=== PATIENT | male | born 1950 | race Caucasian/White ===

== ENCOUNTER 2017-07-01 11:00 | Inpatient (IN) | payer MEDICARE, MEDICAID ==
--- NOTE | 2017-07-01 11:34 | ED Physician Chart ---
ED Chief Complaint/HPI - Patient Information Date Seen:: 07/01/17 Time Seen:: 11:15 Chief Complaint:: AMS History of Present Illness:: onset x 3 days of AMS and ALOC with abnormal lab tests today; no report of trauma, H/As, S/T, neck pain, C/P, SOB, Abd. Pain Allergies:: Allergies Allergy/AdvReac Type Severity Reaction Status Date / Time MDX No Known Allergies - Nka Allergy Verified 04/05/14 13:14 [No Known Allergies - Nka] Historian:: Patient, EMS Review:: Nurse's Note Reviewed, Old Chart Reviewed, EMS run form Reviewed ED Review of Systems - Review of Systems General/Constitutional: No fever, No chills, No weight loss, No weakness, No diaphoresis, No edema, No loss of appetite Skin: No skin lesions, No rash, No bruising Head: No headache, No light-headedness Eyes: No loss of vision, No pain, No diplopia ENT: No earache, No nasal drainage, No sore throat, No tinnitus Neck: No neck pain, No swelling, No thyromegaly, No stiffness, No mass noted Cardio Vascular: No chest pain, No palpitations, No PND, No orthopnea, No edema Pulmonary: No SOB, No cough, No sputum, No wheezing GI: No nausea, No vomiting, No diarrhea, No pain, No melena, No hematochezia, No constipation, No hematemesis G/U: No dysuria, No frequency, No hematuria, No nacturia Musculoskeletal: No bone or joint pain, No back pain, No muscle pain Endocrine: No polyuria, No polydipsia Psychiatric: No prior psych history, No depression, No anxiety, No suicidal ideation, No homicidal ideation, No auditory hallucination, No visual hallucination Hematopoietic: No bruising, No lymphadenopathy Allergic/Immuno: No urticaria, No angioedema Neurological: No syncope, No focal symptoms, No weakness, No paresthesia, No headache, No seizure, No dizziness, Confusion, No vertigo ED Past Medical History - Past Medical History Obtainable: Yes Past Medical History: HTN, CAD, Dyslipidemia, Dementia Family History: HTN Social History: Non Smoker, No Alcohol, No Drug Use, Single, Care Facility Surgical History: Pacemaker Psychiatricy History: Dementia Medication: Reviewed Family Medical History - Family Member Mother History Unknown: Yes Ethnicity: Non- Living Status: Hx Family Cancer: No Hx Family Coronary Artery Disease: No Hx Family Congestive Heart Failure: No Hx Family Hypertension: No Hx Family Stroke: No Hx Family Diabetes: No Hx Family Seizures: No Hx Family Dementia: No Hx Family AIDS: No Hx Family HIV: No Hx Family COPD: No Hx Family Hepatitis: No Hx Family Psychiatric Problems: No Hx Family Tuberculosis: No ED Physical Exam - Physical Examination General/Constitutional: Awake, Well-developed, well-nourished, Alert, No distress, GCS 15, Non-toxic appearing, Ambulatory Head: Atraumatic Eyes: Lids, conjuctiva normal, PERRL, EOMI Skin: Nl inspection, No rash, No skin lesions, No ecchymosis, No lymphadenopathy Other Skin comments:: Poor turgor with dry MM ENMT: External ears, nose nl, TM canals nl, Nasal exam nl, Lips, teeth, gums nl , Oropharynx nl, Tonsils nl Neck: Nontender, Full ROM w/o pain, No JVD, No nuchal rigidity, No bruit, No mass, No stridor Respiratory: Nl effort/Exclusion, Clear to Auscultation, No Wheeze/Rhonchi/Rales Cardio Vascular: RRR, No murmur, gallop, rubs, NL S1 S2, Carotid/Femoral/Distal pulses equal bilaterally GI: No tenderness/rebounding/guarding, No organomegaly, No hernia, Normal BS's, Nondistended, No mass/bruits, No McBurney tenderness : No CVA tenderness Extremities: No tenderness or effusion, Full ROM, normal strength in all extremities, No edema, Normal digits & nails Neuro/Psych: Alert/oriented, DTR's symmetric, Normal sensory exam, Normal motor strength, Judgement/insight normal, Mood normal, Normal gait, No focal deficits Misc: Normal back, No paraspinal tenderness ED Labs/Radiology/EKG Results - Lab Results Comments:: K+: 3.3; BUN: 52; LA: 4.36 - EKG Interpretations EKG Time:: 11:42 Rate & Rhythm: 82; Pacemaker Rhythm/NSR Comments:: LVH; RBBB; non-specific st-t changes ED Septic Shock - . Is Septic Shock (SBP<90, OR Lactate>4 mmol\L) present?: No ED Reassessment (Disposition) - Reassessment Reassessment Condition:: Improved - Diagnosis Diagnosis:: Anemia; Myocardial Ischemia; Dehydration; Pre-Renal Azotemia; Sepsis; UTI - Aftercare/Follow up Instructions Aftercare/Follow-Up Instructions:: Counseled pt regarding lab results/diagnosis & need follow up, Counseled pt & family regarding lab results/diagnosis & need follow up - Patient Disposition Discharge/Transfer:: Acute Care w/in this hosp Accepting Physician:: Dr. Gregorio Time Called:: 1300 Time Responded:: 13:00 Admitted to:: Telemetry Spoke to:: Dr. Gregorio Admitting Medical Physician:: Dr. Gregorio Condition at Disposition:: Stable, Improved
--- NOTE | 2017-07-01 11:50 | Diagnostic Imaging Report ---
Portable chest x-ray HISTORY: Pain The overall heart size is difficult to assess with portable technique and a poor inspiration. Cardiac electrode lead wire projects over the right ventricle. No focal pulmonary processes. IMPRESSION: 1. No focal pulmonary processes
[2017-07-01 11:56] LABS: % BASOPHILS 1.1 % (0.0-2.0); % LYMPHOCYTES 33.6 % (20.0-50.0); % MONOCYTES 9.5 % (2.0-10.0); % NEUTROPHILS 54.8 % (40.0-80.0); BASOPHILE ABSOLUTE 0.1 Th/cumm (0-0.2); EOSINOPHILE ABSOLUTE 0.1 Th/cmm (0.1-0.4); HEMATOCRIT 33.3 % (41.0-60); HEMOGLOBIN 11.4 gm/dL (12-16); LYMPHOCYTE ABSOLUTE 3.5 Th/cmm (1.5-3.0); MEAN CELL VOLUME 94.8 fl (80-99); MEAN CORPUSCULAR HEMOGLOBIN 32.5 pg (27.0-31.0); MEAN CORPUSCULAR HGB CONC 34.2 pg (28.0-36.0); MEAN PLATELET VOLUME 8.7 fl; NEUTROPHILE ABSOLUTE 5.8 Th/cmm (1.8-8.0); PLATELET COUNT 226 Th/cmm (150-400); RED BLOOD COUNT 3.51 Mil/cmm (3.80-5.80); RED CELL DISTRIBUTION WIDTH 12.8 % (11.5-20.0); WHITE BLOOD COUNT 10.5 Th/cmm (4.8-10.8)
[2017-07-01 12:14] LABS: ALB/GLOB RATIO 0.4 (1.0-1.8); ALBUMIN 2.7 gm/dL (4.2-5.5); ANION GAP 15.3 (7.0-16.0); BILIRUBIN,TOTAL 0.5 mg/dL (0.3-1.0); CALCIUM SERUM 10.9 mg/dL (8.6-10.3); CREATININE - SERUM 1.9 mg/dL (0.7-1.3); GFR AFRICAN-AMERICAN 45.6 ml/min (>90); GFR NON AFRICAN-AMERICAN 37.7 ml/min; POTASSIUM SERUM 3.3 mEq/L (3.5-5.1); TOTAL PROTEIN,SERUM 8.8 gm/dL (6.0-8.3)
[2017-07-01] MEDS ORDERED: Sodium Chloride 0.9% 1,000 ML IV ONE (12:19)
[2017-07-01 12:21] LABS: INR 1.08 (0.5-1.4); PROTHROMBIN TIME (TEST) 11.2 SECONDS (9.5-11.5)
[2017-07-01 13:06] LABS: URINE MICROSCOPIC INDICATED? YES; URINE SOURCE MIDSTREAM
[2017-07-01 13:15] LABS: URINE BILIRUBIN NEGATIVE (NEGATIVE); URINE BLOOD TRACE (NEGATIVE); URINE GLUCOSE (UA) NEGATIVE (NEGATIVE); URINE KETONE NEGATIVE (NEGATIVE); URINE LEUKOCYTE ESTERASE MODERATE (NEGATIVE); URINE NITRATE NEGATIVE (NEGATIVE); URINE PH 7.5 (4.6 - 8.0); URINE PROTEIN TRACE mg/dL (NEGATIVE); URINE UROBILINOGEN 0.2 E.U./dL (0.2 - 1.0)
[2017-07-01 13:26] LABS: URINE CLARITY HAZY (CLEAR); URINE COLOR YELLOW
[2017-07-01 13:28] LABS: URINE BACTERIA FEW /hpf (NONE SEEN); URINE EPITHELIAL CELLS FEW /lpf (FEW); URINE WBC 50-100 /hpf (0-5)
[2017-07-01] MEDS ORDERED: Potassium Chloride 20 mEq ER Tab PO ONE (13:29)
[2017-07-01] MEDS ORDERED: cefTRIAXone 1 GM in Sodium Chloride 0.9% 50 ML IV ONE (13:30)
[2017-07-01] MEDS ORDERED: Sodium Chloride 0.9% 1,000 ML IV SCH ×2 (16:15→16:47)
[2017-07-01] MEDS ORDERED: cefTRIAXone 1 GM in Sodium Chloride 0.9% 50 ML IV SCH (16:47)
[2017-07-01] MEDS: INSULIN ASPART, RECOMBINANT 100 UNITS/ML SUBQ SCH ×2 (17:40→22:19)
[2017-07-01] MEDS: Sodium Chloride 0.9% 1,000 ML IV SCH (17:40)
[2017-07-01 20:09] VITALS: BP 99/53
[2017-07-01] MEDS ORDERED: INSULIN ASPART SLIDING SCALE 100 UNITS/ML UNIT SUBQ SCH (21:00)
[2017-07-01] MEDS ORDERED: Piperacillin Sodium/Tazobact 3.375 gm Vial IV ONE (21:57)
[2017-07-01 22:17] LABS: A1C % 7.4 % (4.0-6.0)
--- NOTE | 2017-07-01 22:58 | History & Physical ---
ADMIT DATE: 07/01/2017 CHIEF COMPLAINT: Lethargy and abnormal labs. HISTORY OF PRESENT ILLNESS: A 66-year-old male with underlying history of cardiomyopathy, systolic heart failure, diabetes mellitus, morbid obesity, who lives in a nursing facility, was transferred for lethargy, abnormal labs. The patient was subsequently admitted for dehydration, acute renal failure and UTI. At time of evaluation, the patient did not communicate well. The patient is well known to me from [facility]. PAST MEDICAL HISTORY: Systolic heart failure, Parkinson's disease, CKD, nonischemic cardiomyopathy, mental disorder. PAST SURGICAL HISTORY: No significant past medical history. SOCIAL HISTORY: [facility] resident. No smoking or alcohol. ALLERGIES: No known drug allergies. REVIEW OF SYSTEMS: Unobtainable, patient's underlying severe confusion. PHYSICAL EXAMINATION: VITAL SIGNS: Temperature 97.4, pulse 80, respirations 20, blood pressure 99/53. HEART: S1, S2 normal. LUNGS: Bilateral clear to auscultation. ABDOMEN: Soft, nontender. NEURO EXAM: The patient is awake, but confused, did not communicate well, unable to communicate well. LABORATORY DATA: Available laboratory data, WBC 10.5, hemoglobin 11.4, hematocrit 33.3, platelet is 226. Sodium 135, potassium 3.3, BUN 53, creatinine 1.9, AST 61, ALT is 28. Troponin 0.08, albumin is 2.7. Lactic acid is 4.89. Chest x-ray, no acute pulmonary process. ASSESSMENT: 1. Sepsis. 2. Complicated urinary tract infection. 3. Acute on chronic kidney disease. 4. Dehydration. 5. Lethargic. 6. Insulin-dependent diabetes mellitus. 7. Nonischemic cardiomyopathy. 8. Mental disorder. PLAN: The patient admitted to tele unit, started on IV fluid hydrations. ID and Nephrology was consulted. The patient's Lasix and Zaroxolyn was discontinued. Blood sugar, we will monitor Accu-Cheks. Insulin coverage will be given. Blood culture, which was obtained. HOME MEDICATIONS: As reconciled. Symptomatic treatment will be given for pain, nausea, vomiting and fever. The patient's condition and plan of care discussed with the nursing staff. JOB# [id number] [facility]
[2017-07-02] MEDS ORDERED: Piperacillin Sodium/Tazobact 3.375 gm Vial IV ONE (05:57)
[2017-07-02 06:32] LABS: % BASOPHILS 0.7 % (0.0-2.0); % EOSINOPHILS 2.1 % (0.0-5.0); % LYMPHOCYTES 30.7 % (20.0-50.0); % MONOCYTES 12.2 % (2.0-10.0); % NEUTROPHILS 54.3 % (40.0-80.0); BASOPHILE ABSOLUTE 0.1 Th/cumm (0-0.2); EOSINOPHILE ABSOLUTE 0.2 Th/cmm (0.1-0.4); HEMATOCRIT 31.1 % (41.0-60); HEMOGLOBIN 10.6 gm/dL (12-16); LYMPHOCYTE ABSOLUTE 3.2 Th/cmm (1.5-3.0); MEAN CELL VOLUME 94.1 fl (80-99); MEAN CORPUSCULAR HEMOGLOBIN 32.1 pg (27.0-31.0); MEAN CORPUSCULAR HGB CONC 34.2 pg (28.0-36.0); MONOCYTE ABSOLUTE 1.3 Th/cmm (0.3-1.0); NEUTROPHILE ABSOLUTE 5.5 Th/cmm (1.8-8.0); PLATELET COUNT 186 Th/cmm (150-400); RED CELL DISTRIBUTION WIDTH 12.9 % (11.5-20.0); WHITE BLOOD COUNT 10.3 Th/cmm (4.8-10.8)
[2017-07-02] MEDS: Sodium Chloride 0.9% 1,000 ML IV SCH ×2 (06:33→14:11)
[2017-07-02] MEDS: INSULIN ASPART, RECOMBINANT 100 UNITS/ML SUBQ SCH ×4 (06:33→20:51)
[2017-07-02 07:02] LABS: ALB/GLOB RATIO 0.4 (1.0-1.8); ALBUMIN 2.3 gm/dL (4.2-5.5); ANION GAP 9.2 (7.0-16.0); BILIRUBIN,TOTAL 0.6 mg/dL (0.3-1.0); CALCIUM SERUM 9.5 mg/dL (8.6-10.3); CARBON DIOXIDE 23.1 mEq/L (21.0-31.0); CREATININE - SERUM 1.8 mg/dL (0.7-1.3); GFR AFRICAN-AMERICAN 48.5 ml/min (>90); GFR NON AFRICAN-AMERICAN 40.1 ml/min; MAGNESIUM 1.8 mg/dL (1.9-2.7); PHOSPHOROUS 3.1 mg/dL (2.5-5.0); POTASSIUM SERUM 3.3 mEq/L (3.5-5.1); TOTAL PROTEIN,SERUM 7.7 gm/dL (6.0-8.3)
[2017-07-02] MEDS ORDERED: Potassium Chloride 40 MEQ, Lidocaine 1% 20mL Vial 25 MG in Sodium Chloride 0.9% 250 ML IV ONE (11:54)
[2017-07-02] MEDS ORDERED: Mag Sulfate 2gm/50mL Premix 2 GM/50 ML BAG IV ONE (11:54)
[2017-07-02] MEDS ORDERED: KCL 20mEq/100mL Premix 40 MEQ/200 ML PIGGYBACK IV SCH (12:15)
[2017-07-02] MEDS ORDERED: cefTRIAXone 1 GM in Sodium Chloride 0.9% 50 ML IV SCH (14:00)
--- NOTE | 2017-07-02 15:27 | Consultation ---
Consult Note - Consult Note Service Date: 07/02/17 Referring Physician: Ian Gregorio Consult Note: PHYSICIAN Consultation Note: Date of Admission: 07/01/17 Purpose of Consultation: Chief Complaint: Patient ALFA ECHAVARRIA was admitted to [facility] with ACUTE RENAL FAILURE. History of Present Illness:The patient is 66 male with a past medical history of systolic heart failure, cardiopathy, diabetes mellitus type 2, obesity, Parkinson's disease, psych disorder, agitation, brought from nursing facility for increased lethargy and leukocytosis. The patient WBC count went up to 12, 300 and BUN went up to 61 and creatinine 2. On the further evaluation, labwork revealed UTI. ID consult was called and minimal, Zosyn was started. Past Medical History: systolic heart failure, cardiopathy, diabetes mellitus type 2, obesity, Parkinson's disease, psych disorder, agitation Allergies Allergy/AdvReac Type Severity Reaction Status Date / Time No Known Allergies Allergy Verified 07/01/17 11:37 Vital Signs Temp 97.6 F 07/02/17 04:00 Pulse 58 07/02/17 07:41 Resp 14 07/02/17 07:41 BP 122/68 07/02/17 04:00 Pulse Ox 99 07/02/17 07:41 Intake & Output 07/01/17 07/02/17 07/02/17 18:59 06:59 18:59 Intake Total 1900 100 Balance 1900 100 Weight (lbs) 86.001 kg 85.729 kg Intake: Intake, IV Amount 1100 100 Piperacillin Sodium/ 100 100 Tazobact 3.375 gm In Sodium Chloride 0.9% 100 ml @ 100 mls/hr IV Q6HR [facility] Rx#:[id number] Sodium Chloride 0.9% 1, 1000 000 ml @ 100 mls/hr IV . Q10H [facility] Rx#:[id number] Oral 800 Other: # Voids 2 # Bowel Movements 0 Weight Source Bedscale Estimated Laboratory Results - last 24 hr 07/01/17 07/02/17 07/02/17 17:23 05:58 05:58 WBC 10.3 RBC 3.30 L Hgb 10.6 L Hct 31.1 L MCV 94.1 MCH 32.1 H MCHC Differential 34.2 RDW 12.9 Plt Count 186 MPV 9.0 Neutrophils % 54.3 Lymphocytes % 30.7 Monocytes % 12.2 H Eosinophils % 2.1 Basophils % 0.7 Sodium 137 Potassium 3.3 L Chloride 108 H Carbon Dioxide 23.1 Anion Gap 9.2 BUN 43 H Creatinine 1.8 H Est GFR ( Amer) 48.5 Est GFR (Non-Af Amer) 40.1 BUN/Creatinine Ratio 23.9 Glucose 100 D POC Glucose 76 Calcium 9.5 Phosphorus 3.1 Magnesium 1.8 L Total Bilirubin 0.6 AST 53 H ALT 23 Alkaline Phosphatase 97 Total Protein 7.7 Albumin 2.3 L Globulin 5.4 Albumin/Globulin Ratio 0.4 L TSH 07/02/17 05:58 WBC RBC Hgb Hct MCV MCH MCHC Differential RDW Plt Count MPV Neutrophils % Lymphocytes % Monocytes % Eosinophils % Basophils % Sodium Potassium Chloride Carbon Dioxide Anion Gap BUN Creatinine Est GFR ( Amer) Est GFR (Non-Af Amer) BUN/Creatinine Ratio Glucose POC Glucose Calcium Phosphorus Magnesium Total Bilirubin AST ALT Alkaline Phosphatase Total Protein Albumin Globulin Albumin/Globulin Ratio TSH 0.87 Home Medication Medication Instructions Recorded Type Sitagliptin Phosphate [Januvia] 50 mg PO DAILY 04/05/14 History Insulin Aspart, Recombinant See Protocol SUBQ QID 12/04/14 History [NovoLOG] Nitroglycerin [Nitroglycerin*] 0.4 mg SL Q5MIN PRN 12/04/14 History Aspirin EC [Ecotrin] 81 mg PO DAILY 07/01/17 History Bisacodyl [Biscolax] 10 mg RC DAILY PRN 07/01/17 History Carbidopa/Levodopa [Sinemet 25-100 1 each PO BID 07/01/17 History mg Tablet] Dextrose/Dextrin/Maltose 1 unit PO PRN PRN 07/01/17 History [Insta-Glucose Gel] Furosemide [Lasix] 40 mg PO Q48H 07/01/17 History Glucagon,Human Recombinant 1 mg IJ PRN PRN 07/01/17 History [Glucagon Emergency Kit] Insulin Aspart, Recombinant 10 unit SUBQ TID 07/01/17 History [NovoLOG FLEXPEN] Insulin Detemir [Levemir] 100 unit SQ BID 07/01/17 History Lactulose 20 gm PO HS 07/01/17 History Lisinopril [Prinivil] 2.5 mg PO DAILY 07/01/17 History Neomycin Vazquez/Bacitrac Zn/Poly 28 gm TP DAILY 07/01/17 History [Antibiotic Ointment] Potassium Chloride 1 tab PO DAILY 07/01/17 History Zaroxolyn 5 mg PO BID 07/01/17 History Current Medications Generic Name Dose Route Start Last Admin Trade Name Freq PRN Reason Stop Dose Admin Acetaminophen 650 mg 07/01/17 22:20 Tylenol PO 08/30/17 22:19 Q4HR PRN Pain Or Fever above 101 Aspirin 81 mg 07/02/17 09:00 07/02/17 09:34 Ecotrin PO 08/31/17 08:59 81 mg DAILY [facility] Administration Carbidopa/Levodopa 1 tab 07/02/17 17:00 Sinemet 25mg-100 Mg PO 08/31/17 16:59 BID MIC[facility]EL Piperacillin Sod/Tazobactam 100 mls @ 100 mls/hr 07/01/17 21:00 07/02/17 14: 10 Sod 3.375 gm/ Sodium Chloride IV 08/30/17 20:59 100 mls/hr Q6HR [facility] Administration Potassium Chloride 40 meq in 200 mls @ 50 mls/hr 07/02/17 12:15 Potassium Chloride IV 07/03/17 16:14 1215 [facility] Sodium Chloride 1,000 mls @ 70 mls/hr 07/02/17 13:49 07/02/17 14:11 Nacl 0.9% IV 08/31/17 13:48 70 mls/hr .[id number] [facility] Administration Insulin Aspart 1 units 07/01/17 16:47 07/02/17 12:13 Novolog SUBQ 08/30/17 16:46 Not Given ACHS [facility] Protocol Ondansetron HCl 4 mg 07/01/17 22:20 Zofran IV 08/30/17 22:19 Q6H PRN Nausea / Vomiting Review of Systems: A 12 point ROS was reviewed with the pertinent positive and negatives noted in the HPI. Because of the mental status unable to give any history. Social History Lives at nursing facility. Smoking Status Smoker, status unknown Drug Use No Alcohol Use No Family Medical History Not available Physical Exam: General: Comfortable not in acute distress. HEENT: Head: Normocephalic. Oral cavity: Moist, pink tongue. Eyes: No pallor and no icterus. Pupils PERRLA. Cardio: S1 and S2 within normal limits regular rhythm. Respiratory: Vesicular breath sound no crackles or wheezing. Abdominal: Soft, nontender nondistended bowel sounds present. Genital/Urinary: Deferred. Extremities: No cyanosis, no clubbing, no edema. Neurological: Agitated and very confused. Sorting and yelling. Assessment: 1. UTI. 2. Agitation. 3. Diabetes mellitus type 2. 4. Acute kidney injury versus CK D. 5. Hypertension. Plan: Continue same treatment. Change Zosyn to Rocephin. Renal ultrasound. Thank you, Dr. Gregorio for involving me taking care of this patient Signed, Eric Handy M.D. 07/02/[id number]
--- NOTE | 2017-07-02 16:12 | Consultation ---
DATE OF CONSULTATION: 07/02/2017 RENAL CONSULT LOCATION: [facility], room 18, bed 2. ATTENDING PHYSICIAN: Dr. Gregorio. I thank you very much, Dr. Gregorio for allowing me to participate in the management of this patient of yours. INDICATIONS: This is a 66-year-old male patient. The patient is confused. The patient has a history of parkinsonism. History has been taken from reviewing the old chart. HISTORY OF PRESENT ILLNESS: A 66-year-old male patient who is resident of a intermediate. The patient is a known case of hypertension, CHF, diabetes mellitus, cardiomyopathy. The patient also has a history of possible chronic kidney disease 2. The patient was brought in with change in mental status. Upon evaluation, the patient was found to have acute renal failure, electrolyte imbalance, volume depletion, UTI. The patient has been seen by Infectious Disease healthcare management consultant. Renal consultation has been requested. According to the nursing staff, there is no history of vomiting or diarrhea. The patient is eating well. There is no history of seizures, high fever. No history of loss of consciousness. No history of anuria, dysuria or hematuria. The patient's urine output is more than 60 mL per hour. PAST MEDICAL AND SURGICAL HISTORY: As stated above, history of nonischemic cardiomyopathy, obesity, parkinsonism, CKD, hypertension, diabetes mellitus and degenerative joint disease. SOCIAL HISTORY: No history of alcoholism or smoking. ALLERGIES: Not allergic to medications. The patient is a resident of intermediate. CURRENT MEDICATIONS: Include Tylenol p.r.n., aspirin 81 mg a day, Rocephin 1 g every 24-hour, insulin coverage, Zofran IV p.r.n. and IV Zosyn. PHYSICAL EXAMINATION: GENERAL: A 66-year-old male patient confused. VITAL SIGNS: Temperature 97.6, pulse 63, blood pressure 122/68. Yesterday's intake 2900, output not documented. HEENT: Normocephalic, atraumatic. Eyes, sclerae is nonicteric. Conjunctivae are pale. Pupils reactive. NECK: Thyroid is nontender, not enlarged. Jugular venous pressure not distended. No lymphadenopathy. EAR, NOSE, THROAT: No bleeding or discharge. LUNGS: Good air entry. No rales or rhonchi. HEART: Regular. [place] in a sixth intercostal space outside midclavicular line. ABDOMEN: Soft, not distended. Bowel sounds present. EXTREMITIES: No edema of the leg. No calf tenderness. Warm. LABORATORY DATA: Hemoglobin 10.6, WBC 10.3. Sodium 135, potassium 3.3, BUN 52, creatinine 1.49, EGFR 45, hemoglobin A1c 7.4, magnesium 1.8, phosphorus 3.1, calcium 9.1. Initial calcium was 10.9, which has improved to 9.5, albumin 2.7, decreased to 2.3. Urinalysis: Leukocyte positive, WBC positive, nitrite negative. ASSESSMENT: 1. Hypercalcemia, improving. 2. Hypokalemia. 3. Hypomagnesemia. 4. Acute kidney injury. 5. Chronic kidney disease 3, baseline probably. 6. Hypertension. 7. History of cardiomyopathy. 8. Obesity. 9. Anemia, worsening. 10. Lactic acidosis, etiology not clear. 11. Rule out volume depletion. 12. Rule out urinary tract infection. 13. History of parkinsonism. PLAN: We will give the patient potassium KCl rider. We will also give magnesium rider. Check PTH 24-hour urine for proteinuria and creatinine clearance. Increase IV fluids. Also, check stool occult blood and iron studies. Also, obtain TSH. The patient also has elevated LFTs, but they are improving, so check kidney ultrasound and liver ultrasound if LFTs does not come back to normal level. Further management depends upon the outcome of this management. Discussed with nursing staff. JOB# [id number]
--- NOTE | 2017-07-02 21:25 | General Progress Note ---
Subjective - Review of Systems Service Date: 07/02/17 Subjective: Patient seen and examined awake but confused nurse reported that patient refusing to eat Also nurse was unable to insert erickson cath due to ? urethral stricture Objective - Results Result Diagrams: 07/02/17 05:58 07/02/17 05:58 Recent Labs: Laboratory Last Values WBC 10.3 Th/cmm (4.8-10.8) 07/02/17 05:58 RBC 3.30 Mil/cmm (3.80-5.80) L 07/02/17 05:58 Hgb 10.6 gm/dL (12-16) L 07/02/17 05:58 Hct 31.1 % (41.0-60) L 07/02/17 05:58 MCV 94.1 fl (80-99) 07/02/17 05:58 MCH 32.1 pg (27.0-31.0) H 07/02/17 05:58 MCHC Differential 34.2 pg (28.0-36.0) 07/02/17 05:58 RDW 12.9 % (11.5-20.0) 07/02/17 05:58 Plt Count 186 Th/cmm (150-400) 07/02/17 05:58 MPV 9.0 fl 07/02/17 05:58 Neutrophils % 54.3 % (40.0-80.0) 07/02/17 05:58 Lymphocytes % 30.7 % (20.0-50.0) 07/02/17 05:58 Monocytes % 12.2 % (2.0-10.0) H 07/02/17 05:58 Eosinophils % 2.1 % (0.0-5.0) 07/02/17 05:58 Basophils % 0.7 % (0.0-2.0) 07/02/17 05:58 PT 11.2 SECONDS (9.5-11.5) 07/01/17 11:45 INR 1.08 (0.5-1.4) 07/01/17 11:45 PTT (Actin FS) 27.8 SECONDS (26.0-38.0) 07/01/17 11:45 Sodium 137 mEq/L (136-145) 07/02/17 05:58 Potassium 3.3 mEq/L (3.5-5.1) L 07/02/17 05:58 Chloride 108 mEq/L (98-107) H 07/02/17 05:58 Carbon Dioxide 23.1 mEq/L (21.0-31.0) 07/02/17 05:58 Anion Gap 9.2 (7.0-16.0) 07/02/17 05:58 BUN 43 mg/dL (7-25) H 07/02/17 05:58 Creatinine 1.8 mg/dL (0.7-1.3) H 07/02/17 05:58 Est GFR ( Amer) 48.5 ml/min (>90) 07/02/17 05:58 Est GFR (Non-Af Amer) 40.1 ml/min 07/02/17 05:58 BUN/Creatinine Ratio 23.9 07/02/17 05:58 Glucose 100 mg/dL (70-105) D 07/02/17 05:58 POC Glucose 181 MG/DL (70 - 105) H 07/02/17 20:29 Hemoglobin A1c % 7.4 % (4.0-6.0) H 07/01/17 11:45 Whole Bld Lactic Acid 4.89 mmol/L (0.60-1.99) H* 07/01/17 14:30 Calcium 9.5 mg/dL (8.6-10.3) 07/02/17 05:58 Phosphorus 3.1 mg/dL (2.5-5.0) 07/02/17 05:58 Magnesium 1.8 mg/dL (1.9-2.7) L 07/02/17 05:58 Total Bilirubin 0.6 mg/dL (0.3-1.0) 07/02/17 05:58 AST 53 U/L (13-39) H 07/02/17 05:58 ALT 23 U/L (7-52) 07/02/17 05:58 Alkaline Phosphatase 97 U/L (34-104) 07/02/17 05:58 Creatine Kinase 95 U/L (30-223) 07/01/17 11:45 Troponin I 0.08 ng/mL (0.01-0.05) H* D 07/01/17 11:45 Total Protein 7.7 gm/dL (6.0-8.3) 07/02/17 05:58 Albumin 2.3 gm/dL (4.2-5.5) L 07/02/17 05:58 Globulin 5.4 gm/dL 07/02/17 05:58 Albumin/Globulin Ratio 0.4 (1.0-1.8) L 07/02/17 05:58 TSH 0.87 uIU/ml (0.34-5.60) 07/02/17 05:58 Urine Source MIDSTREAM 07/01/17 12:00 Urine Color YELLOW 07/01/17 12:00 Urine Clarity HAZY (CLEAR) 07/01/17 12:00 Urine pH 7.5 (4.6 - 8.0) 07/01/17 12:00 Ur Specific [place] 1.010 (1.005-1.030) 07/01/17 12:00 Urine Protein TRACE mg/dL (NEGATIVE) 07/01/17 12:00 Urine Glucose (UA) NEGATIVE mg/dL (NEGATIVE) 07/01/17 12:00 Urine Ketones NEGATIVE mg/dL (NEGATIVE) 07/01/17 12:00 Urine Blood TRACE (NEGATIVE) 07/01/17 12:00 Urine Nitrate NEGATIVE (NEGATIVE) 07/01/17 12:00 Urine Bilirubin NEGATIVE (NEGATIVE) 07/01/17 12:00 Urine Urobilinogen 0.2 E.U./dL (0.2 - 1.0) 07/01/17 12:00 Ur Leukocyte Esterase MODERATE (NEGATIVE) H 07/01/17 12:00 Urine RBC 2-5 /hpf (0-5) H 07/01/17 12:00 Urine WBC 50-100 /hpf (0-5) H 07/01/17 12:00 Ur Epithelial Cells FEW /lpf (FEW) 07/01/17 12:00 Urine Bacteria FEW /hpf (NONE SEEN) 07/01/17 12:00 - Physical Exam Vitals and I&O: Vital Signs Temp 61 F 07/02/17 15:39 Pulse 63 07/02/17 19:20 Resp 18 07/02/17 20:00 BP 87/37 07/02/17 15:39 Pulse Ox 98 07/02/17 19:20 Intake & Output 07/02/17 07/02/17 07/03/17 06:59 18:59 06:59 Intake Total 1900 100 200 Output Total 2 Balance 1900 100 198 Weight (lbs) 86.001 kg 85.729 kg 85.729 kg Intake: Intake, IV Amount 1100 100 200 KCL 20mEq/100mL Premix 40 200 meq In 200 ml @ 50 mls/ hr IV 1215 [facility] Rx#: [id number] Piperacillin Sodium/ 100 100 Tazobact 3.375 gm In Sodium Chloride 0.9% 100 ml @ 100 mls/hr IV Q6HR [facility] Rx#:[id number] Sodium Chloride 0.9% 1, 1000 000 ml @ 100 mls/hr IV . Q10H [facility] Rx#:[id number] Oral 800 Output: Stool 2 Other: # Voids 2 # Bowel Movements 0 Weight Source Bedscale Estimated Estimated Active Medications: Current Medications Acetaminophen (Tylenol) 650 mg PO Q4HR PRN PRN Reason: Pain Or Fever above 101 Stop: 08/30/17 22:19 Aspirin (Ecotrin) 81 mg PO DAILY [facility] Stop: 08/31/17 08:59 Last Admin: 07/02/17 09:34 Dose: 81 mg Carbidopa/Levodopa (Sinemet 25mg-100 Mg) 1 tab PO BID [facility] Stop: 08/31/17 16:59 Last Admin: 07/02/17 18:05 Dose: 1 tab Potassium Chloride (Potassium Chloride) 40 meq in 200 mls @ 50 mls/hr IV 1215 [facility] Stop: 07/03/17 16:14 Last Infusion: 07/02/17 20:10 Dose: Infused Sodium Chloride (Nacl 0.9%) 1,000 mls @ 70 mls/hr IV .[id number] [facility] Stop: 08/31/17 13:48 Last Admin: 07/02/17 14:11 Dose: 70 mls/hr Insulin Aspart (Novolog) 1 units SUBQ ACHS [facility] PRN Reason: Protocol Stop: 08/30/17 16:46 Last Admin: 07/02/17 20:51 Dose: 3 unit Ondansetron HCl (Zofran) 4 mg IV Q6H PRN PRN Reason: Nausea / Vomiting Stop: 08/30/17 22:19 General: No acute distress Cardiovascular: Regular rate Lungs: Clear to auscultation Abdomen: Soft - Procedures Procedures: Procedures Procedure Code Date OTHER GROUP THERAPY 94.44 04/06/14 Assessment/Plan - Problem List Patient Problems: All Active Problems ABNORMAL LABORATORY RESULTS WBC, BUN (Acute) - Assessment Assessment: Complicated UTI Acute on CKD better Parkinson's disease DM II HTN Cardiomyopathy Dementia Psych disorder - Plan Plan: IV antibiotics IV fluids Accucheck Urology consulted for erickson cath Sinemet ID Nephrology on board Follow up labs in am Plan of care discussed with nursing staff Nutritional Asmnt/Malnutr-PDOC - Dietary Evaluation Malnutrition Findings (Please click <Entered> for more info): Nutritional Asmnt/Malnutrition Start: 07/02/17 11: 28 Text: Status: Complete Freq: Document 07/02/17 11:29 MIRA (Rec: 07/02/17 11:32 MIRA PINTO- [id number]) Nutritional Asmnt/Malnutrition Patient General Information Nutritional Screening Consult Diagnosis Acute renal failure Pertinent Medical Hx/Surgical Hx morbid obesity,systolic heart failure, cardiomyopathy Subjective Information Pt sitting up in bed stated to come back tomorrow Current Diet Order/ Nutrition Support CCHO 45g Pertinent Medications novolog, zofran, NS @100ml/hr Pertinent Labs 07/02: Na 137, K 3.3, Cl 108, Co2 23.1, BUN 43, Cr 1.8, Ca 9 .5, phos 3.1, mg 1.8, glucose 100 Nutritional Hx/Data Height 1.75 m Height (Calculated Centimeters) 175.3 Current Weight (lbs) 85.729 kg Weight (Calculated Kilograms) 85.7 Weight (Calculated Grams) 03996.0 Body Mass Index (BMI) 27.8 Weight Status Overweight GI Symptoms GI Symptoms None Last BM none noted Cultural/Ethnic/Jewish Belief Unknown Usual diet at home unknown Skin Integrity/Comment: emma french 15 Current %PO Fair (50-74%) Estimated Nutritional Goals BEE in Kcals: Using Current wt Calories/Kcals/Kg 30kcals/kg Kcals Calculated 2580kcals/day Protein: Using Current wt Protein g/kg/kg Protein Calculated 86g/day Fluid: ml per MD Nutritional Problem 1. Problem Problem No nutrition diagnosis at this time Intervention/Recommendation Comments Recommend continuing CCHO diet Expected Outcomes/Goals Expected Outcomes/Goals PO intake > 75% of meals
[2017-07-03] MEDS: Sodium Chloride 0.9% 1,000 ML IV SCH (04:40)
[2017-07-03 06:43] LABS: ALB/GLOB RATIO 0.5 (1.0-1.8); ALBUMIN 2.3 gm/dL (4.2-5.5); ANION GAP 8.8 (7.0-16.0); BILIRUBIN,TOTAL 0.7 mg/dL (0.3-1.0); CALCIUM SERUM 8.9 mg/dL (8.6-10.3); CARBON DIOXIDE 19.5 mEq/L (21.0-31.0); GFR AFRICAN-AMERICAN 42.9 ml/min (>90); GFR NON AFRICAN-AMERICAN 35.5 ml/min; MAGNESIUM 2.1 mg/dL (1.9-2.7); PHOSPHOROUS 2.7 mg/dL (2.5-5.0); POTASSIUM SERUM 3.3 mEq/L (3.5-5.1); TOTAL PROTEIN,SERUM 7.4 gm/dL (6.0-8.3)
[2017-07-03] MEDS: INSULIN ASPART, RECOMBINANT 100 UNITS/ML SUBQ SCH ×4 (06:43→21:55)
--- NOTE | 2017-07-03 11:01 | Diagnostic Imaging Report ---
Renal ultrasound HISTORY: Abnormal renal function test The right kidney measures 10.4 x 5.6 x 5.5 cm. 1.5 cm sonolucent lesion consistent with a cyst is seen in the cortex. No hydronephrosis. The left kidney measures 11.3 x 6.3 x 6.2 cm. No focal lesions. No hydronephrosis. Evaluation of the urinary bladder limited due to patient motion and lack of cooperation. IMPRESSION: 1. Limited exam due to lack of patient cooperation and combativeness 2. No hydronephrosis 3. Findings consistent with a small right renal cyst
--- NOTE | 2017-07-03 12:58 | Consultation ---
DATE OF CONSULTATION: 07/03/2017 PATIENT'S AGE: 66-year-old. SEX: Male. PHYSICIAN: Malcolm Drew MD, MPH CHIEF COMPLAINT: Agitation. HISTORY OF PRESENT ILLNESS: The patient was admitted to the hospital from [facility] because of lethargy and abnormal labs. The patient has history of cardiomyopathy as well as heart failure and diabetes mellitus and morbid obesity. The patient has been agitated and restless. Also, has history of Parkinson disease. The patient is agitated and he was not able to answer my questions coherently because of agitation and confusion. He needed lots of redirections. The patient currently is not taking any psychotropic medications. PAST PSYCHIATRIC HISTORY: Noncontributory. PAST MEDICAL HISTORY: The patient has morbid obesity as well as systolic heart failure and Parkinson disease. SOCIAL HISTORY: The patient lives in [facility]. No known alcohol or drug use. ALLERGIES: No known allergies. MENTAL STATUS EXAM: The patient appears his stated age. Anxious. Unable to answer questions coherently and gets agitated easily, especially with frustration, not able to answer questions. ASSESSMENT: The patient is agitated and he needs close monitoring. TREATMENT PLAN: Continue to monitor his behavior and condition closely. Also, we will reevaluate the patient for more recommendations. Thanks to Dr. Morro Gregorio and will follow with you. JOB# [id number]
[2017-07-03] MEDS ORDERED: Potassium Chloride 20 mEq ER Tab PO ONE (13:28)
--- NOTE | 2017-07-03 16:17 | Infectious Disease Prog Note ---
Infectious Disease Subjective - Review of Systems Service Date: 07/03/17 Subjective: There is no new change, no fever. Infectious Disease Objective - Results Result Diagrams: 07/02/17 05:58 07/03/17 06:05 Recent Labs: Laboratory Last Values WBC 10.3 Th/cmm (4.8-10.8) 07/02/17 05:58 RBC 3.30 Mil/cmm (3.80-5.80) L 07/02/17 05:58 Hgb 10.6 gm/dL (12-16) L 07/02/17 05:58 Hct 31.1 % (41.0-60) L 07/02/17 05:58 MCV 94.1 fl (80-99) 07/02/17 05:58 MCH 32.1 pg (27.0-31.0) H 07/02/17 05:58 MCHC Differential 34.2 pg (28.0-36.0) 07/02/17 05:58 RDW 12.9 % (11.5-20.0) 07/02/17 05:58 Plt Count 186 Th/cmm (150-400) 07/02/17 05:58 MPV 9.0 fl 07/02/17 05:58 Neutrophils % 54.3 % (40.0-80.0) 07/02/17 05:58 Lymphocytes % 30.7 % (20.0-50.0) 07/02/17 05:58 Monocytes % 12.2 % (2.0-10.0) H 07/02/17 05:58 Eosinophils % 2.1 % (0.0-5.0) 07/02/17 05:58 Basophils % 0.7 % (0.0-2.0) 07/02/17 05:58 PT 11.2 SECONDS (9.5-11.5) 07/01/17 11:45 INR 1.08 (0.5-1.4) 07/01/17 11:45 PTT (Actin FS) 27.8 SECONDS (26.0-38.0) 07/01/17 11:45 Sodium 134 mEq/L (136-145) L 07/03/17 06:05 Potassium 3.3 mEq/L (3.5-5.1) L 07/03/17 06:05 Chloride 109 mEq/L (98-107) H 07/03/17 06:05 Carbon Dioxide 19.5 mEq/L (21.0-31.0) L 07/03/17 06:05 Anion Gap 8.8 (7.0-16.0) 07/03/17 06:05 BUN 37 mg/dL (7-25) H 07/03/17 06:05 Creatinine 2.0 mg/dL (0.7-1.3) H 07/03/17 06:05 Est GFR ( Amer) 42.9 ml/min (>90) 07/03/17 06:05 Est GFR (Non-Af Amer) 35.5 ml/min 07/03/17 06:05 BUN/Creatinine Ratio 18.5 07/03/17 06:05 Glucose 135 mg/dL (70-105) H 07/03/17 06:05 POC Glucose 208 MG/DL (70 - 105) H 07/03/17 12:18 Hemoglobin A1c % 7.4 % (4.0-6.0) H 07/01/17 11:45 Whole Bld Lactic Acid 4.89 mmol/L (0.60-1.99) H* 07/01/17 14:30 Calcium 8.9 mg/dL (8.6-10.3) 07/03/17 06:05 Phosphorus 2.7 mg/dL (2.5-5.0) 07/03/17 06:05 Magnesium 2.1 mg/dL (1.9-2.7) 07/03/17 06:05 Total Bilirubin 0.7 mg/dL (0.3-1.0) 07/03/17 06:05 AST 57 U/L (13-39) H 07/03/17 06:05 ALT 12 U/L (7-52) 07/03/17 06:05 Alkaline Phosphatase 97 U/L (34-104) 07/03/17 06:05 Creatine Kinase 95 U/L (30-223) 07/01/17 11:45 Troponin I 0.08 ng/mL (0.01-0.05) H* D 07/01/17 11:45 Total Protein 7.4 gm/dL (6.0-8.3) 07/03/17 06:05 Albumin 2.3 gm/dL (4.2-5.5) L 07/03/17 06:05 Globulin 5.1 gm/dL 07/03/17 06:05 Albumin/Globulin Ratio 0.5 (1.0-1.8) L 07/03/17 06:05 TSH 0.87 uIU/ml (0.34-5.60) 07/02/17 05:58 Urine Source MIDSTREAM 07/01/17 12:00 Urine Color YELLOW 07/01/17 12:00 Urine Clarity HAZY (CLEAR) 07/01/17 12:00 Urine pH 7.5 (4.6 - 8.0) 07/01/17 12:00 Ur Specific [place] 1.010 (1.005-1.030) 07/01/17 12:00 Urine Protein TRACE mg/dL (NEGATIVE) 07/01/17 12:00 Urine Glucose (UA) NEGATIVE mg/dL (NEGATIVE) 07/01/17 12:00 Urine Ketones NEGATIVE mg/dL (NEGATIVE) 07/01/17 12:00 Urine Blood TRACE (NEGATIVE) 07/01/17 12:00 Urine Nitrate NEGATIVE (NEGATIVE) 07/01/17 12:00 Urine Bilirubin NEGATIVE (NEGATIVE) 07/01/17 12:00 Urine Urobilinogen 0.2 E.U./dL (0.2 - 1.0) 07/01/17 12:00 Ur Leukocyte Esterase MODERATE (NEGATIVE) H 07/01/17 12:00 Urine RBC 2-5 /hpf (0-5) H 07/01/17 12:00 Urine WBC 50-100 /hpf (0-5) H 07/01/17 12:00 Ur Epithelial Cells FEW /lpf (FEW) 07/01/17 12:00 Urine Bacteria FEW /hpf (NONE SEEN) 07/01/17 12:00 - Physical Exam Vitals and I&O: Vital Signs Temp 98.8 F 07/03/17 12:00 Pulse 65 07/03/17 12:00 Resp 20 07/03/17 12:00 BP 111/60 07/03/17 12:00 Pulse Ox 98 07/03/17 12:00 Intake & Output 07/02/17 07/03/17 07/03/17 18:59 06:59 18:59 Intake Total 100 1425 Output Total 2 Balance 100 1423 Weight (lbs) 85.729 kg 86.75 kg 86.75 kg Intake: Intake, IV Amount 100 1200 KCL 20mEq/100mL Premix 40 200 meq In 200 ml @ 50 mls/ hr IV 1215 [facility] Rx#: [id number] Piperacillin Sodium/ 100 Tazobact 3.375 gm In Sodium Chloride 0.9% 100 ml @ 100 mls/hr IV Q6HR [facility] Rx#:[id number] Sodium Chloride 0.9% 1, 1000 000 ml @ 70 mls/hr IV . [id number] [facility] Rx#:[id number] Oral 225 Output: Stool 2 Other: # Voids 4 # Bowel Movements 1 Weight Source Estimated Bedscale Bedscale Active Medications: Current Medications Acetaminophen (Tylenol) 650 mg PO Q4HR PRN PRN Reason: Pain Or Fever above 101 Stop: 08/30/17 22:19 Aspirin (Ecotrin) 81 mg PO DAILY [facility] Stop: 08/31/17 08:59 Last Admin: 07/03/17 09:50 Dose: 81 mg Carbidopa/Levodopa (Sinemet 25mg-100 Mg) 1 tab PO BID [facility] Stop: 08/31/17 16:59 Last Admin: 07/03/17 09:50 Dose: 1 tab Sodium Chloride (Nacl 0.9%) 1,000 mls @ 70 mls/hr IV .[id number] [facility] Stop: 08/31/17 13:48 Last Admin: 07/03/17 04:40 Dose: 70 mls/hr Insulin Aspart (Novolog) 1 units SUBQ ACHS [facility] PRN Reason: Protocol Stop: 08/30/17 16:46 Last Admin: 07/03/17 12:49 Dose: 5 unit Lorazepam (Ativan) 1 mg IVP Q4HR PRN; Protocol PRN Reason: Agitation Stop: 09/01/17 11:52 Ondansetron HCl (Zofran) 4 mg IV Q6H PRN PRN Reason: Nausea / Vomiting Stop: 08/30/17 22:19 Sodium Bicarbonate (Sodium Bicarbonate) 650 mg PO BID [facility] PRN Reason: Protocol Stop: 09/01/17 16:59 General: no acute distress, well developed, well nourished HEENT: atraumatic, normocephalic, PERRLA, EOMI Neck: supple, no thyromegaly Cardiovascular: S1S2, regular Lungs: clear to auscultation bilaterally, clear to percussion Abdomen: soft, no tender, no distended, no mass Extremities: no cyanosis, no clubbing Neurological: awake, alert, oriented Skin: intact - Procedures Procedures: Procedures Procedure Code Date OTHER GROUP THERAPY 94.44 04/06/14 Infectious Disease Assmt/Plan - Problem List Patient Problems: All Active Problems ABNORMAL LABORATORY RESULTS WBC, BUN (Acute) - Assessment Assessment: 1. UTI. 2. Agitation. 3. Diabetes mellitus type 2. 4. Acute kidney injury versus CK D. 5. Hypertension. - Plan Plan: Continue same treatment. Continue Rocephin. Nutritional Asmnt/Malnutr-PDOC - Dietary Evaluation Malnutrition Findings (Please click <Entered> for more info): Nutritional Asmnt/Malnutrition Start: 07/02/17 11: 28 Text: Status: Complete Freq: Document 07/02/17 11:29 MIRA (Rec: 07/02/17 11:32 MIRA PINTO- [email or web address]) Nutritional Asmnt/Malnutrition Patient General Information Nutritional Screening Consult Diagnosis Acute renal failure Pertinent Medical Hx/Surgical Hx morbid obesity,systolic heart failure, cardiomyopathy Subjective Information Pt sitting up in bed stated to come back tomorrow Current Diet Order/ [facility] Pertinent Medications novolog, zofran, NS @100ml/hr Pertinent Labs 07/02: Na 137, K 3.3, Cl 108, Co2 23.1, BUN 43, Cr 1.8, Ca 9 .5, phos 3.1, mg 1.8, glucose 100 Nutritional Hx/Data Height 1.75 m Height (Calculated Centimeters) 175.3 Current Weight (lbs) 85.729 kg Weight (Calculated Kilograms) 85.7 Weight (Calculated Grams) 02202.0 Body Mass Index (BMI) 27.8 Weight Status Overweight GI Symptoms GI Symptoms None Last BM none noted Cultural/Ethnic/Mandaeism Belief Unknown Usual diet at home unknown Skin Integrity/Comment: emma french 15 Current %PO Fair (50-74%) Estimated Nutritional Goals BEE in Kcals: Using Current wt Calories/Kcals/Kg 30kcals/kg Kcals Calculated 2580kcals/day Protein: Using Current wt Protein g/kg/kg Protein Calculated 86g/day Fluid: ml per MD Nutritional Problem 1. Problem Problem No nutrition diagnosis at this time Intervention/Recommendation Comments Recommend continuing [facility] diet Expected Outcomes/Goals Expected Outcomes/Goals PO intake > 75% of meals
--- NOTE | 2017-07-03 18:20 | Progress Notes ---
DATE: 07/03/2017 LOCATION [facility], room #18, bed B. The patient is essentially same. According to nursing staff there is no vomiting or diarrhea. PHYSICAL EXAMINATION: VITAL SIGNS: Blood pressure improved to 111/60 from 97/62, pulse 65, respirations 20. Yesterday's intake 2900, output not documented. HEART: Regular. LUNGS: Good air entry. ABDOMEN: Soft. EXTREMITIES: No edema. LABORATORY DATA: Sodium 134, potassium 3.3, chloride 109, CO2 19.5, BUN 37, creatinine 2.0, which increased from 1.8. Blood sugar 135, phosphorus 2.7, magnesium normal at 2.1. TSH normal. Urinalysis is not available. ASSESSMENT: 1. Hypokalemia. 2. Hyponatremia. 3. Acidosis. 4. Chronic kidney disease 3, worsening. 5. Lactic acidosis. 6. Anemia. 7. Obesity. 8. Hypertension. 9. History of cardiomyopathy. PLAN: 1. KCl rider one time today. 2. After KCl given start patient on sodium bicarbonate 1300 mg b.i.d. 3. Continue current IV hydration. 4. Repeat labs in the morning. JOB# [id number]
--- NOTE | 2017-07-03 18:39 | General Progress Note ---
Subjective - Review of Systems Service Date: 07/03/17 Subjective: Patient seen and examined afebrile no new event reported Objective - Results Result Diagrams: 07/02/17 05:58 07/03/17 06:05 Recent Labs: Laboratory Last Values WBC 10.3 Th/cmm (4.8-10.8) 07/02/17 05:58 RBC 3.30 Mil/cmm (3.80-5.80) L 07/02/17 05:58 Hgb 10.6 gm/dL (12-16) L 07/02/17 05:58 Hct 31.1 % (41.0-60) L 07/02/17 05:58 MCV 94.1 fl (80-99) 07/02/17 05:58 MCH 32.1 pg (27.0-31.0) H 07/02/17 05:58 MCHC Differential 34.2 pg (28.0-36.0) 07/02/17 05:58 RDW 12.9 % (11.5-20.0) 07/02/17 05:58 Plt Count 186 Th/cmm (150-400) 07/02/17 05:58 MPV 9.0 fl 07/02/17 05:58 Neutrophils % 54.3 % (40.0-80.0) 07/02/17 05:58 Lymphocytes % 30.7 % (20.0-50.0) 07/02/17 05:58 Monocytes % 12.2 % (2.0-10.0) H 07/02/17 05:58 Eosinophils % 2.1 % (0.0-5.0) 07/02/17 05:58 Basophils % 0.7 % (0.0-2.0) 07/02/17 05:58 PT 11.2 SECONDS (9.5-11.5) 07/01/17 11:45 INR 1.08 (0.5-1.4) 07/01/17 11:45 PTT (Actin FS) 27.8 SECONDS (26.0-38.0) 07/01/17 11:45 Sodium 134 mEq/L (136-145) L 07/03/17 06:05 Potassium 3.3 mEq/L (3.5-5.1) L 07/03/17 06:05 Chloride 109 mEq/L (98-107) H 07/03/17 06:05 Carbon Dioxide 19.5 mEq/L (21.0-31.0) L 07/03/17 06:05 Anion Gap 8.8 (7.0-16.0) 07/03/17 06:05 BUN 37 mg/dL (7-25) H 07/03/17 06:05 Creatinine 2.0 mg/dL (0.7-1.3) H 07/03/17 06:05 Est GFR ( Amer) 42.9 ml/min (>90) 07/03/17 06:05 Est GFR (Non-Af Amer) 35.5 ml/min 07/03/17 06:05 BUN/Creatinine Ratio 18.5 07/03/17 06:05 Glucose 135 mg/dL (70-105) H 07/03/17 06:05 POC Glucose 208 MG/DL (70 - 105) H 07/03/17 12:18 Hemoglobin A1c % 7.4 % (4.0-6.0) H 07/01/17 11:45 Whole Bld Lactic Acid 4.89 mmol/L (0.60-1.99) H* 07/01/17 14:30 Calcium 8.9 mg/dL (8.6-10.3) 07/03/17 06:05 Phosphorus 2.7 mg/dL (2.5-5.0) 07/03/17 06:05 Magnesium 2.1 mg/dL (1.9-2.7) 07/03/17 06:05 Total Bilirubin 0.7 mg/dL (0.3-1.0) 07/03/17 06:05 AST 57 U/L (13-39) H 07/03/17 06:05 ALT 12 U/L (7-52) 07/03/17 06:05 Alkaline Phosphatase 97 U/L (34-104) 07/03/17 06:05 Creatine Kinase 95 U/L (30-223) 07/01/17 11:45 Troponin I 0.08 ng/mL (0.01-0.05) H* D 07/01/17 11:45 Total Protein 7.4 gm/dL (6.0-8.3) 07/03/17 06:05 Albumin 2.3 gm/dL (4.2-5.5) L 07/03/17 06:05 Globulin 5.1 gm/dL 07/03/17 06:05 Albumin/Globulin Ratio 0.5 (1.0-1.8) L 07/03/17 06:05 TSH 0.87 uIU/ml (0.34-5.60) 07/02/17 05:58 Urine Source MIDSTREAM 07/01/17 12:00 Urine Color YELLOW 07/01/17 12:00 Urine Clarity HAZY (CLEAR) 07/01/17 12:00 Urine pH 7.5 (4.6 - 8.0) 07/01/17 12:00 Ur Specific [place] 1.010 (1.005-1.030) 07/01/17 12:00 Urine Protein TRACE mg/dL (NEGATIVE) 07/01/17 12:00 Urine Glucose (UA) NEGATIVE mg/dL (NEGATIVE) 07/01/17 12:00 Urine Ketones NEGATIVE mg/dL (NEGATIVE) 07/01/17 12:00 Urine Blood TRACE (NEGATIVE) 07/01/17 12:00 Urine Nitrate NEGATIVE (NEGATIVE) 07/01/17 12:00 Urine Bilirubin NEGATIVE (NEGATIVE) 07/01/17 12:00 Urine Urobilinogen 0.2 E.U./dL (0.2 - 1.0) 07/01/17 12:00 Ur Leukocyte Esterase MODERATE (NEGATIVE) H 07/01/17 12:00 Urine RBC 2-5 /hpf (0-5) H 07/01/17 12:00 Urine WBC 50-100 /hpf (0-5) H 07/01/17 12:00 Ur Epithelial Cells FEW /lpf (FEW) 07/01/17 12:00 Urine Bacteria FEW /hpf (NONE SEEN) 07/01/17 12:00 - Physical Exam Vitals and I&O: Vital Signs Temp 98 F 07/03/17 16:00 Pulse 82 07/03/17 16:00 Resp 18 07/03/17 16:00 BP 102/69 07/03/17 16:00 Pulse Ox 99 07/03/17 16:00 Intake & Output 07/02/17 07/03/17 07/03/17 18:59 06:59 18:59 Intake Total 100 1425 450 Output Total 2 3 Balance 100 1423 447 Weight (lbs) 85.729 kg 86.75 kg 86.75 kg Intake: Intake, IV Amount 100 1200 50 KCL 20mEq/100mL Premix 40 200 meq In 200 ml @ 50 mls/ hr IV 1215 [facility] Rx#: [id number] Piperacillin Sodium/ 100 Tazobact 3.375 gm In Sodium Chloride 0.9% 100 ml @ 100 mls/hr IV Q6HR [facility] Rx#:[id number] Sodium Chloride 0.9% 1, 1000 000 ml @ 70 mls/hr IV . [id number] [facility] Rx#:[id number] cefTRIAXone 1 gm In 50 Dextrose 5% 50 ml @ 100 mls/hr IV Q24H [facility] Rx#: [id number] Oral 225 400 Output: Urine 3 Stool 2 Other: # Voids 4 # Bowel Movements 1 1 Weight Source Estimated Bedscale Bedscale Active Medications: Current Medications Acetaminophen (Tylenol) 650 mg PO Q4HR PRN PRN Reason: Pain Or Fever above 101 Stop: 08/30/17 22:19 Aspirin (Ecotrin) 81 mg PO DAILY [facility] Stop: 08/31/17 08:59 Last Admin: 07/03/17 09:50 Dose: 81 mg Carbidopa/Levodopa (Sinemet 25mg-100 Mg) 1 tab PO BID [facility] Stop: 08/31/17 16:59 Last Admin: 07/03/17 17:24 Dose: 1 tab Sodium Chloride (Nacl 0.9%) 1,000 mls @ 70 mls/hr IV .[id number] [facility] Stop: 08/31/17 13:48 Last Admin: 07/03/17 04:40 Dose: 70 mls/hr Ceftriaxone Sodium 1 gm/ (Dextrose) 50 mls @ 100 mls/hr IV Q24H [facility] Stop: 09/01/17 16:59 Last Infusion: 07/03/17 18:00 Dose: Infused Insulin Aspart (Novolog) 1 units SUBQ ACHS [facility] PRN Reason: Protocol Stop: 08/30/17 16:46 Last Admin: 07/03/17 17:32 Dose: 3 unit Lorazepam (Ativan) 1 mg IVP Q4HR PRN; Protocol PRN Reason: Agitation Stop: 09/01/17 11:52 Ondansetron HCl (Zofran) 4 mg IV Q6H PRN PRN Reason: Nausea / Vomiting Stop: 08/30/17 22:19 Sodium Bicarbonate (Sodium Bicarbonate) 650 mg PO BID [facility] PRN Reason: Protocol Stop: 09/01/17 16:59 Last Admin: 07/03/17 17:24 Dose: 650 mg General: No acute distress Cardiovascular: Regular rate Lungs: Clear to auscultation Abdomen: Soft - Procedures Procedures: Procedures Procedure Code Date OTHER GROUP THERAPY 94.44 04/06/14 Assessment/Plan - Problem List Patient Problems: All Active Problems ABNORMAL LABORATORY RESULTS WBC, BUN (Acute) - Assessment Assessment: Complicated UTI Acute on CKD Hypokalemia Parkinson's disease DM II HTN Cardiomyopathy Dementia Psych disorder - Plan Plan: IV antibiotics IV fluids Accucheck Urology consulted for erickson cath Sinemet ID Nephrology on board Follow up labs in am Plan of care discussed with nursing staff Nutritional Asmnt/Malnutr-PDOC - Dietary Evaluation Malnutrition Findings (Please click <Entered> for more info): Nutritional Asmnt/Malnutrition Start: 07/02/17 11: 28 Text: Status: Complete Freq: Document 07/02/17 11:29 MIRA (Rec: 07/02/17 11:32 MIRA PINTO- [email or web address]) Nutritional Asmnt/Malnutrition Patient General Information Nutritional Screening Consult Diagnosis Acute renal failure Pertinent Medical Hx/Surgical Hx morbid obesity,systolic heart failure, cardiomyopathy Subjective Information Pt sitting up in bed stated to come back tomorrow Current Diet Order/ Nutrition Support CCHO 45g Pertinent Medications novolog, zofran, NS @100ml/hr Pertinent Labs 07/02: Na 137, K 3.3, Cl 108, Co2 23.1, BUN 43, Cr 1.8, Ca 9 .5, phos 3.1, mg 1.8, glucose 100 Nutritional Hx/Data Height 1.75 m Height (Calculated Centimeters) 175.3 Current Weight (lbs) 85.729 kg Weight (Calculated Kilograms) 85.7 Weight (Calculated Grams) 98284.0 Body Mass Index (BMI) 27.8 Weight Status Overweight GI Symptoms GI Symptoms None Last BM none noted Cultural/Ethnic/Orthodoxy Belief Unknown Usual diet at home unknown Skin Integrity/Comment: emma french 15 Current %PO Fair (50-74%) Estimated Nutritional Goals BEE in Kcals: Using Current wt Calories/Kcals/Kg 30kcals/kg Kcals Calculated 2580kcals/day Protein: Using Current wt Protein g/kg/kg Protein Calculated 86g/day Fluid: ml per MD Nutritional Problem 1. Problem Problem No nutrition diagnosis at this time Intervention/Recommendation Comments [facility] Expected Outcomes/Goals Expected Outcomes/Goals PO intake > 75% of meals
[2017-07-04 05:52] LABS: % BASOPHILS 0.5 % (0.0-2.0); % EOSINOPHILS 2.4 % (0.0-5.0); % LYMPHOCYTES 37.7 % (20.0-50.0); % MONOCYTES 10.7 % (2.0-10.0); % NEUTROPHILS 48.7 % (40.0-80.0); BASOPHILE ABSOLUTE 0.1 Th/cumm (0-0.2); EOSINOPHILE ABSOLUTE 0.3 Th/cmm (0.1-0.4); HEMATOCRIT 30.1 % (41.0-60); HEMOGLOBIN 10.5 gm/dL (12-16); MEAN CELL VOLUME 94.5 fl (80-99); MEAN CORPUSCULAR HGB CONC 34.9 pg (28.0-36.0); MEAN PLATELET VOLUME 8.6 fl; MONOCYTE ABSOLUTE 1.1 Th/cmm (0.3-1.0); PLATELET COUNT 184 Th/cmm (150-400); RED BLOOD COUNT 3.19 Mil/cmm (3.80-5.80); RED CELL DISTRIBUTION WIDTH 13.2 % (11.5-20.0); WHITE BLOOD COUNT 10.5 Th/cmm (4.8-10.8)
[2017-07-04 06:05] LABS: ALB/GLOB RATIO 0.4 (1.0-1.8); ALBUMIN 2.3 gm/dL (4.2-5.5); ANION GAP 9.2 (7.0-16.0); BILIRUBIN,TOTAL 0.5 mg/dL (0.3-1.0); CALCIUM SERUM 8.9 mg/dL (8.6-10.3); CARBON DIOXIDE 20.2 mEq/L (21.0-31.0); CREATININE - SERUM 1.7 mg/dL (0.7-1.3); GFR AFRICAN-AMERICAN 51.8 ml/min (>90); GFR NON AFRICAN-AMERICAN 42.8 ml/min; POTASSIUM SERUM 3.4 mEq/L (3.5-5.1); TOTAL PROTEIN,SERUM 7.5 gm/dL (6.0-8.3)
[2017-07-04] MEDS: INSULIN ASPART, RECOMBINANT 100 UNITS/ML SUBQ SCH ×4 (07:53→21:10)
--- NOTE | 2017-07-04 12:27 | Diagnostic Imaging Report ---
Ultrasound bladder, History: Pain Comparison: renal ultrasound on 07/02/2017 Technique/procedure: Exam is limited due to patient's medical condition. Sonography urinary bladder was obtained in multiple planes. The prevoid bladder wall is 241 mL. The postvoid bladder volume is 167-mL. The urinary bladder wall measures 3 mm with mild irregularities. The prostate gland measures 3.3 x 2.7 x 4.1 cm demonstrates a mildly heterogeneous echotexture. IMPRESSION: Limited exam. Elevated postvoid residual bladder volume 167 mL is noted. The significance of this finding should be correlated clinically Mild irregularity and mild generalized prominence of the urinary bladder wall. Inflammatory or infectious process cannot be excluded, clinical correlation is recommended. Heterogeneous and borderline prominent prostate gland, again clinical correlation is recommended.
--- NOTE | 2017-07-04 13:53 | Infectious Disease Prog Note ---
Infectious Disease Subjective - Review of Systems Service Date: 07/04/17 Subjective: There is no new change, no fever. Infectious Disease Objective - Results Result Diagrams: 07/04/17 05:30 07/04/17 05:30 Recent Labs: Laboratory Last Values WBC 10.5 Th/cmm (4.8-10.8) 07/04/17 05:30 RBC 3.19 Mil/cmm (3.80-5.80) L 07/04/17 05:30 Hgb 10.5 gm/dL (12-16) L 07/04/17 05:30 Hct 30.1 % (41.0-60) L 07/04/17 05:30 MCV 94.5 fl (80-99) 07/04/17 05:30 MCH 33.0 pg (27.0-31.0) H 07/04/17 05:30 MCHC Differential 34.9 pg (28.0-36.0) 07/04/17 05:30 RDW 13.2 % (11.5-20.0) 07/04/17 05:30 Plt Count 184 Th/cmm (150-400) 07/04/17 05:30 MPV 8.6 fl 07/04/17 05:30 Neutrophils % 48.7 % (40.0-80.0) 07/04/17 05:30 Lymphocytes % 37.7 % (20.0-50.0) 07/04/17 05:30 Monocytes % 10.7 % (2.0-10.0) H 07/04/17 05:30 Eosinophils % 2.4 % (0.0-5.0) 07/04/17 05:30 Basophils % 0.5 % (0.0-2.0) 07/04/17 05:30 PT 11.2 SECONDS (9.5-11.5) 07/01/17 11:45 INR 1.08 (0.5-1.4) 07/01/17 11:45 PTT (Actin FS) 27.8 SECONDS (26.0-38.0) 07/01/17 11:45 Sodium 136 mEq/L (136-145) 07/04/17 05:30 Potassium 3.4 mEq/L (3.5-5.1) L 07/04/17 05:30 Chloride 110 mEq/L (98-107) H 07/04/17 05:30 Carbon Dioxide 20.2 mEq/L (21.0-31.0) L 07/04/17 05:30 Anion Gap 9.2 (7.0-16.0) 07/04/17 05:30 BUN 28 mg/dL (7-25) H 07/04/17 05:30 Creatinine 1.7 mg/dL (0.7-1.3) H 07/04/17 05:30 Est GFR ( Amer) 51.8 ml/min (>90) 07/04/17 05:30 Est GFR (Non-Af Amer) 42.8 ml/min 07/04/17 05:30 BUN/Creatinine Ratio 16.5 07/04/17 05:30 Glucose 131 mg/dL (70-105) H 07/04/17 05:30 POC Glucose 145 MG/DL (70 - 105) H 07/04/17 11:23 Hemoglobin A1c % 7.4 % (4.0-6.0) H 07/01/17 11:45 Whole Bld Lactic Acid 4.89 mmol/L (0.60-1.99) H* 07/01/17 14:30 Calcium 8.9 mg/dL (8.6-10.3) 07/04/17 05:30 Phosphorus 2.7 mg/dL (2.5-5.0) 07/03/17 06:05 Magnesium 2.1 mg/dL (1.9-2.7) 07/03/17 06:05 Total Bilirubin 0.5 mg/dL (0.3-1.0) 07/04/17 05:30 AST 53 U/L (13-39) H 07/04/17 05:30 ALT 11 U/L (7-52) 07/04/17 05:30 Alkaline Phosphatase 94 U/L (34-104) 07/04/17 05:30 Creatine Kinase 95 U/L (30-223) 07/01/17 11:45 Troponin I 0.08 ng/mL (0.01-0.05) H* D 07/01/17 11:45 Total Protein 7.5 gm/dL (6.0-8.3) 07/04/17 05:30 Albumin 2.3 gm/dL (4.2-5.5) L 07/04/17 05:30 Globulin 5.2 gm/dL 07/04/17 05:30 Albumin/Globulin Ratio 0.4 (1.0-1.8) L 07/04/17 05:30 TSH 0.87 uIU/ml (0.34-5.60) 07/02/17 05:58 Urine Source MIDSTREAM 07/01/17 12:00 Urine Color YELLOW 07/01/17 12:00 Urine Clarity HAZY (CLEAR) 07/01/17 12:00 Urine pH 7.5 (4.6 - 8.0) 07/01/17 12:00 Ur Specific [place] 1.010 (1.005-1.030) 07/01/17 12:00 Urine Protein TRACE mg/dL (NEGATIVE) 07/01/17 12:00 Urine Glucose (UA) NEGATIVE mg/dL (NEGATIVE) 07/01/17 12:00 Urine Ketones NEGATIVE mg/dL (NEGATIVE) 07/01/17 12:00 Urine Blood TRACE (NEGATIVE) 07/01/17 12:00 Urine Nitrate NEGATIVE (NEGATIVE) 07/01/17 12:00 Urine Bilirubin NEGATIVE (NEGATIVE) 07/01/17 12:00 Urine Urobilinogen 0.2 E.U./dL (0.2 - 1.0) 07/01/17 12:00 Ur Leukocyte Esterase MODERATE (NEGATIVE) H 07/01/17 12:00 Urine RBC 2-5 /hpf (0-5) H 07/01/17 12:00 Urine WBC 50-100 /hpf (0-5) H 07/01/17 12:00 Ur Epithelial Cells FEW /lpf (FEW) 07/01/17 12:00 Urine Bacteria FEW /hpf (NONE SEEN) 07/01/17 12:00 - Physical Exam Vitals and I&O: Vital Signs Temp 98 F 07/04/17 12:00 Pulse 60 07/04/17 12:00 Resp 18 07/04/17 12:00 BP 110/64 07/04/17 12:00 Pulse Ox 99 07/04/17 12:00 Intake & Output 07/03/17 07/04/17 07/04/17 18:59 06:59 18:59 Intake Total 450 300 Output Total 3 Balance 447 300 Weight (lbs) 86.75 kg 87.453 kg Intake: Intake, IV Amount 50 [id number] 1 gm In 50 Dextrose 5% 50 ml @ 100 mls/hr IV Q24H [facility] Rx#: [id number] Oral 400 300 Output: Urine 3 Other: # Voids 3 # Bowel Movements 1 0 Weight Source Bedscale Bedscale Active Medications: Current Medications Acetaminophen (Tylenol) 650 mg PO Q4HR PRN PRN Reason: Pain Or Fever above 101 Stop: 08/30/17 22:19 Aspirin (Ecotrin) 81 mg PO DAILY [facility] Stop: 08/31/17 08:59 Last Admin: 07/04/17 09:07 Dose: 81 mg Carbidopa/Levodopa (Sinemet 25mg-100 Mg) 1 tab PO BID [facility] Stop: 08/31/17 16:59 Last Admin: 07/04/17 09:07 Dose: 1 tab Sodium Chloride (Nacl 0.9%) 1,000 mls @ 70 mls/hr IV .[id number] [facility] Stop: 08/31/17 13:48 Last Admin: 07/03/17 04:40 Dose: 70 mls/hr Ceftriaxone Sodium 1 gm/ (Dextrose) 50 mls @ 100 mls/hr IV Q24H [facility] Stop: 09/01/17 16:59 Last Infusion: 07/03/17 18:00 Dose: Infused Insulin Aspart (Novolog) 1 units SUBQ ACHS [facility] PRN Reason: Protocol Stop: 08/30/17 16:46 Last Admin: 07/04/17 11:26 Dose: Not Given Lorazepam (Ativan) 1 mg IVP Q4HR PRN; Protocol PRN Reason: Agitation Stop: 09/01/17 11:52 Ondansetron HCl (Zofran) 4 mg IV Q6H PRN PRN Reason: Nausea / Vomiting Stop: 08/30/17 22:19 Sodium Bicarbonate (Sodium Bicarbonate) 650 mg PO BID [facility] PRN Reason: Protocol Stop: 09/01/17 16:59 Last Admin: 07/04/17 09:07 Dose: 650 mg General: no acute distress, well developed, well nourished HEENT: atraumatic, normocephalic, PERRLA, EOMI, moist mucous membrane Neck: supple, no thyromegaly Cardiovascular: S1S2, regular Lungs: clear to auscultation bilaterally, clear to percussion Abdomen: soft, no tender, no distended Extremities: no cyanosis, no clubbing Neurological: awake, oriented Skin: intact - Procedures Procedures: Procedures Procedure Code Date OTHER GROUP THERAPY 94.44 04/06/14 Infectious Disease Assmt/Plan - Problem List Patient Problems: All Active Problems ABNORMAL LABORATORY RESULTS WBC, BUN (Acute) - Assessment Assessment: 1. UTI. 2. Agitation. 3. Diabetes mellitus type 2. 4. Acute kidney injury versus CK D. 5. Hypertension. - Plan Plan: Continue same treatment. Continue Rocephin, it can be changed to po levaquin 250mg daily for 5 days. Nutritional Asmnt/Malnutr-PDOC - Dietary Evaluation Malnutrition Findings (Please click <Entered> for more info): Nutritional Asmnt/Malnutrition Start: 07/02/17 11: 28 Text: Status: Complete Freq: Document 07/02/17 11:29 MIRA (Rec: 07/02/17 11:32 MIRA PINTO- [email or web address]) Nutritional Asmnt/Malnutrition Patient General Information Nutritional Screening Consult Diagnosis Acute renal failure Pertinent Medical Hx/Surgical Hx morbid obesity,systolic heart failure, cardiomyopathy Subjective Information Pt sitting up in bed stated to come back tomorrow Current Diet Order/ [facility] Pertinent Medications novolog, zofran, NS @100ml/hr Pertinent Labs 07/02: Na 137, K 3.3, Cl 108, Co2 23.1, BUN 43, Cr 1.8, Ca 9 .5, phos 3.1, mg 1.8, glucose 100 Nutritional Hx/Data Height 1.75 m Height (Calculated Centimeters) 175.3 Current Weight (lbs) 85.729 kg Weight (Calculated Kilograms) 85.7 Weight (Calculated Grams) 13099.0 Body Mass Index (BMI) 27.8 Weight Status Overweight GI Symptoms GI Symptoms None Last BM none noted Cultural/Ethnic/Islam Belief Unknown Usual diet at home unknown Skin Integrity/Comment: emma core 15 Current %PO Fair (50-74%) Estimated Nutritional Goals BEE in Kcals: Using Current wt Calories/Kcals/Kg 30kcals/kg Kcals Calculated 2580kcals/day Protein: Using Current wt Protein g/kg/kg Protein Calculated 86g/day Fluid: ml per MD Nutritional Problem 1. Problem Problem No nutrition diagnosis at this time Intervention/Recommendation Comments Recommend continuing [facility] diet Expected Outcomes/Goals Expected Outcomes/Goals PO intake > 75% of meals
[2017-07-04] MEDS ORDERED: Diphenoxylate/Atropine 2.5mg Tab PO PRN (16:34)
[2017-07-04] MEDS: Sodium Chloride 0.9% 1,000 ML IV SCH (17:15)
--- NOTE | 2017-07-04 18:15 | Progress Notes ---
DATE: 07/04/2017 SUBJECTIVE: Chart reviewed and the patient interviewed. Also, discussed patient's condition with the staff and reviewed the records and labs. The patient is still anxious and is still having episodes of agitation and irritability, but in general calmer than before. The patient also is still confused and is not able to carry on coherent conversation. Otherwise, the patient is compliant with taking his medications with no side effects of medications and slightly easier to redirect him with current dose of his Ativan that can be given on a p.r.n. basis only. ASSESSMENT: The patient still needs monitoring. TREATMENT PLAN: Continue monitoring his behavior and continue to work on his ineffective coping and continue to follow up. JOB# [id number]
--- NOTE | 2017-07-04 20:42 | General Progress Note ---
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 has loose stool Objective - Results Result Diagrams: 07/04/17 05:30 07/04/17 05:30 Recent Labs: Laboratory Last Values WBC 10.5 Th/cmm (4.8-10.8) 07/04/17 05:30 RBC 3.19 Mil/cmm (3.80-5.80) L 07/04/17 05:30 Hgb 10.5 gm/dL (12-16) L 07/04/17 05:30 Hct 30.1 % (41.0-60) L 07/04/17 05:30 MCV 94.5 fl (80-99) 07/04/17 05:30 MCH 33.0 pg (27.0-31.0) H 07/04/17 05:30 MCHC Differential 34.9 pg (28.0-36.0) 07/04/17 05:30 RDW 13.2 % (11.5-20.0) 07/04/17 05:30 Plt Count 184 Th/cmm (150-400) 07/04/17 05:30 MPV 8.6 fl 07/04/17 05:30 Neutrophils % 48.7 % (40.0-80.0) 07/04/17 05:30 Lymphocytes % 37.7 % (20.0-50.0) 07/04/17 05:30 Monocytes % 10.7 % (2.0-10.0) H 07/04/17 05:30 Eosinophils % 2.4 % (0.0-5.0) 07/04/17 05:30 Basophils % 0.5 % (0.0-2.0) 07/04/17 05:30 PT 11.2 SECONDS (9.5-11.5) 07/01/17 11:45 INR 1.08 (0.5-1.4) 07/01/17 11:45 PTT (Actin FS) 27.8 SECONDS (26.0-38.0) 07/01/17 11:45 Sodium 136 mEq/L (136-145) 07/04/17 05:30 Potassium 3.4 mEq/L (3.5-5.1) L 07/04/17 05:30 Chloride 110 mEq/L (98-107) H 07/04/17 05:30 Carbon Dioxide 20.2 mEq/L (21.0-31.0) L 07/04/17 05:30 Anion Gap 9.2 (7.0-16.0) 07/04/17 05:30 BUN 28 mg/dL (7-25) H 07/04/17 05:30 Creatinine 1.7 mg/dL (0.7-1.3) H 07/04/17 05:30 Est GFR ( Amer) 51.8 ml/min (>90) 07/04/17 05:30 Est GFR (Non-Af Amer) 42.8 ml/min 07/04/17 05:30 BUN/Creatinine Ratio 16.5 07/04/17 05:30 Glucose 131 mg/dL (70-105) H 07/04/17 05:30 POC Glucose 124 MG/DL (70 - 105) H 07/04/17 17:24 Hemoglobin A1c % 7.4 % (4.0-6.0) H 07/01/17 11:45 Whole Bld Lactic Acid 4.89 mmol/L (0.60-1.99) H* 07/01/17 14:30 Calcium 8.9 mg/dL (8.6-10.3) 07/04/17 05:30 Phosphorus 2.7 mg/dL (2.5-5.0) 07/03/17 06:05 Magnesium 2.1 mg/dL (1.9-2.7) 07/03/17 06:05 Total Bilirubin 0.5 mg/dL (0.3-1.0) 07/04/17 05:30 AST 53 U/L (13-39) H 07/04/17 05:30 ALT 11 U/L (7-52) 07/04/17 05:30 Alkaline Phosphatase 94 U/L (34-104) 07/04/17 05:30 Creatine Kinase 95 U/L (30-223) 07/01/17 11:45 Troponin I 0.08 ng/mL (0.01-0.05) H* D 07/01/17 11:45 Total Protein 7.5 gm/dL (6.0-8.3) 07/04/17 05:30 Albumin 2.3 gm/dL (4.2-5.5) L 07/04/17 05:30 Globulin 5.2 gm/dL 07/04/17 05:30 Albumin/Globulin Ratio 0.4 (1.0-1.8) L 07/04/17 05:30 TSH 0.87 uIU/ml (0.34-5.60) 07/02/17 05:58 Urine Source MIDSTREAM 07/01/17 12:00 Urine Color YELLOW 07/01/17 12:00 Urine Clarity HAZY (CLEAR) 07/01/17 12:00 Urine pH 7.5 (4.6 - 8.0) 07/01/17 12:00 Ur Specific [place] 1.010 (1.005-1.030) 07/01/17 12:00 Urine Protein TRACE mg/dL (NEGATIVE) 07/01/17 12:00 Urine Glucose (UA) NEGATIVE mg/dL (NEGATIVE) 07/01/17 12:00 Urine Ketones NEGATIVE mg/dL (NEGATIVE) 07/01/17 12:00 Urine Blood TRACE (NEGATIVE) 07/01/17 12:00 Urine Nitrate NEGATIVE (NEGATIVE) 07/01/17 12:00 Urine Bilirubin NEGATIVE (NEGATIVE) 07/01/17 12:00 Urine Urobilinogen 0.2 E.U./dL (0.2 - 1.0) 07/01/17 12:00 Ur Leukocyte Esterase MODERATE (NEGATIVE) H 07/01/17 12:00 Urine RBC 2-5 /hpf (0-5) H 07/01/17 12:00 Urine WBC 50-100 /hpf (0-5) H 07/01/17 12:00 Ur Epithelial Cells FEW /lpf (FEW) 07/01/17 12:00 Urine Bacteria FEW /hpf (NONE SEEN) 07/01/17 12:00 - Physical Exam Vitals and I&O: Vital Signs Temp 98.4 F 07/04/17 16:00 Pulse 58 07/04/17 19:04 Resp 16 07/04/17 19:04 BP 101/57 07/04/17 16:00 Pulse Ox 98 07/04/17 19:04 Intake & Output 07/04/17 07/04/17 07/05/17 06:59 18:59 06:59 Intake Total 300 300 Balance 300 300 Weight (lbs) 87.453 kg 87.09 kg Intake: Oral 300 300 Tube Feeding 0 Other: # Voids 3 3 # Bowel Movements 0 1 Stool Characteristics Liquid Brown Weight Source Bedscale Estimated Active Medications: Current Medications Acetaminophen (Tylenol) 650 mg PO Q4HR PRN PRN Reason: Pain Or Fever above 101 Stop: 08/30/17 22:19 Aspirin (Ecotrin) 81 mg PO DAILY [facility] Stop: 08/31/17 08:59 Last Admin: 07/04/17 09:07 Dose: 81 mg Carbidopa/Levodopa (Sinemet 25mg-100 Mg) 1 tab PO BID [facility] Stop: 08/31/17 16:59 Last Admin: 07/04/17 17:20 Dose: 1 tab Diphenoxylate HCl/Atropine (Lomotil) 1 tab PO Q6H PRN PRN Reason: Diarrhea Stop: 09/02/17 16:33 Sodium Chloride (Nacl 0.9%) 1,000 mls @ 70 mls/hr IV .[id number] [facility] Stop: 08/31/17 13:48 Last Admin: 07/04/17 17:15 Dose: 70 mls/hr Ceftriaxone Sodium 1 gm/ (Dextrose) 50 mls @ 100 mls/hr IV Q24H [facility] Stop: 09/01/17 16:59 Last Admin: 07/04/17 17:17 Dose: 100 mls/hr Insulin Aspart (Novolog) 1 units SUBQ ACHS [facility] PRN Reason: Protocol Stop: 08/30/17 16:46 Last Admin: 07/04/17 17:25 Dose: Not Given Lorazepam (Ativan) 1 mg IVP Q4HR PRN; Protocol PRN Reason: Agitation Stop: 09/01/17 11:52 Ondansetron HCl (Zofran) 4 mg IV Q6H PRN PRN Reason: Nausea / Vomiting Stop: 08/30/17 22:19 Sodium Bicarbonate (Sodium Bicarbonate) 650 mg PO BID [facility] PRN Reason: Protocol Stop: 09/01/17 16:59 Last Admin: 07/04/17 17:20 Dose: 650 mg General: No acute distress Cardiovascular: Regular rate Lungs: Clear to auscultation Abdomen: Soft, no Tender - Procedures Procedures: Procedures Procedure Code Date OTHER GROUP THERAPY 94.44 04/06/14 Assessment/Plan - Problem List Patient Problems: All Active Problems ABNORMAL LABORATORY RESULTS WBC, BUN (Acute) - Assessment Assessment: Complicated UTI Acute on CKD Hypokalemia Diarrhea Parkinson's disease DM II HTN Cardiomyopathy Dementia Psych disorder - Plan Plan: Stool for C DIFF IV antibiotics IV fluids Accucheck Urology consulted for erickson cath Sinemet ID Nephrology on board Follow up labs in am Plan of care discussed with nursing staff Nutritional Asmnt/Malnutr-PDOC - Dietary Evaluation Malnutrition Findings (Please click <Entered> for more info): Nutritional Asmnt/Malnutrition Start: 07/02/17 11: 28 Text: Status: Complete Freq: Document 07/02/17 11:29 VINCEMER (Rec: 07/02/17 11:32 MIRA PINTO- [email or web address]) Nutritional Asmnt/Malnutrition Patient General Information Nutritional Screening Consult Diagnosis Acute renal failure Pertinent Medical Hx/Surgical Hx morbid obesity,systolic heart failure, cardiomyopathy Subjective Information Pt sitting up in bed stated to come back tomorrow Current Diet Order/ Nutrition Support CCHO 45g Pertinent Medications novolog, zofran, NS @100ml/hr Pertinent Labs 07/02: Na 137, K 3.3, Cl 108, Co2 23.1, BUN 43, Cr 1.8, Ca 9 .5, phos 3.1, mg 1.8, glucose 100 Nutritional Hx/Data Height 1.75 m Height (Calculated Centimeters) 175.3 Current Weight (lbs) 85.729 kg Weight (Calculated Kilograms) 85.7 Weight (Calculated Grams) 11667.0 Body Mass Index (BMI) 27.8 Weight Status Overweight GI Symptoms GI Symptoms None Last BM none noted Cultural/Ethnic/Zoroastrianism Belief Unknown Usual diet at home unknown Skin Integrity/Comment: emma french 15 Current %PO Fair (50-74%) Estimated Nutritional Goals BEE in Kcals: Using Current wt Calories/Kcals/Kg 30kcals/kg Kcals Calculated 2580kcals/day Protein: Using Current wt Protein g/kg/kg Protein Calculated 86g/day Fluid: ml per MD Nutritional Problem 1. Problem Problem No nutrition diagnosis at this time Intervention/Recommendation Comments Recommend continuing [facility] diet Expected Outcomes/Goals Expected Outcomes/Goals PO intake > 75% of meals
[2017-07-05 06:23] LABS: % EOSINOPHILS 3.1 % (0.0-5.0); % LYMPHOCYTES 33.8 % (20.0-50.0); % MONOCYTES 10.3 % (2.0-10.0); % NEUTROPHILS 51.8 % (40.0-80.0); BASOPHILE ABSOLUTE 0.1 Th/cumm (0-0.2); EOSINOPHILE ABSOLUTE 0.3 Th/cmm (0.1-0.4); HEMATOCRIT 30.8 % (41.0-60); HEMOGLOBIN 11.1 gm/dL (12-16); LYMPHOCYTE ABSOLUTE 3.2 Th/cmm (1.5-3.0); MEAN CELL VOLUME 92.1 fl (80-99); MEAN CORPUSCULAR HEMOGLOBIN 33.2 pg (27.0-31.0); MEAN PLATELET VOLUME 8.6 fl; NEUTROPHILE ABSOLUTE 4.8 Th/cmm (1.8-8.0); PLATELET COUNT 174 Th/cmm (150-400); RED BLOOD COUNT 3.35 Mil/cmm (3.80-5.80); RED CELL DISTRIBUTION WIDTH 12.8 % (11.5-20.0); WHITE BLOOD COUNT 9.4 Th/cmm (4.8-10.8)
[2017-07-05 06:39] LABS: ANION GAP 9.3 (7.0-16.0); CALCIUM SERUM 8.4 mg/dL (8.6-10.3); CARBON DIOXIDE 18.7 mEq/L (21.0-31.0); CREATININE - SERUM 1.5 mg/dL (0.7-1.3); GFR AFRICAN-AMERICAN 59.9 ml/min (>90); GFR NON AFRICAN-AMERICAN 49.5 ml/min
[2017-07-05] MEDS: INSULIN ASPART, RECOMBINANT 100 UNITS/ML SUBQ SCH ×4 (07:41→20:40)
[2017-07-05] MEDS ORDERED: Potassium Chloride 20 mEq ER Tab PO ONE (09:00)
[2017-07-05 12:13] LABS: IRON LC 90 ug/dL (38-169); PARATHYROID HORMONE INTACT 88 pg/mL (15-65); TIBC (LC) 169 ug/dL (250-450); UIBC 79 ug/dL (111-343)
--- NOTE | 2017-07-05 12:41 | Infectious Disease Prog Note ---
Infectious Disease Subjective - Review of Systems Service Date: 07/05/17 Subjective: There is no new change, no fever. Infectious Disease Objective - Results Result Diagrams: 07/06/17 05:40 07/06/17 05:40 Recent Labs: Laboratory Last Values WBC 9.4 Th/cmm (4.8-10.8) 07/05/17 06:06 RBC 3.35 Mil/cmm (3.80-5.80) L 07/05/17 06:06 Hgb 11.1 gm/dL (12-16) L 07/05/17 06:06 Hct 30.8 % (41.0-60) L 07/05/17 06:06 MCV 92.1 fl (80-99) 07/05/17 06:06 MCH 33.2 pg (27.0-31.0) H 07/05/17 06:06 MCHC Differential 36.0 pg (28.0-36.0) 07/05/17 06:06 RDW 12.8 % (11.5-20.0) 07/05/17 06:06 Plt Count 174 Th/cmm (150-400) 07/05/17 06:06 MPV 8.6 fl 07/05/17 06:06 Neutrophils % 51.8 % (40.0-80.0) 07/05/17 06:06 Lymphocytes % 33.8 % (20.0-50.0) 07/05/17 06:06 Monocytes % 10.3 % (2.0-10.0) H 07/05/17 06:06 Eosinophils % 3.1 % (0.0-5.0) 07/05/17 06:06 Basophils % 1.0 % (0.0-2.0) 07/05/17 06:06 PT 11.2 SECONDS (9.5-11.5) 07/01/17 11:45 INR 1.08 (0.5-1.4) 07/01/17 11:45 PTT (Actin FS) 27.8 SECONDS (26.0-38.0) 07/01/17 11:45 Sodium 134 mEq/L (136-145) L 07/05/17 06:06 Potassium 3.0 mEq/L (3.5-5.1) L 07/05/17 06:06 Chloride 109 mEq/L (98-107) H 07/05/17 06:06 Carbon Dioxide 18.7 mEq/L (21.0-31.0) L 07/05/17 06:06 Anion Gap 9.3 (7.0-16.0) 07/05/17 06:06 BUN 21 mg/dL (7-25) 07/05/17 06:06 Creatinine 1.5 mg/dL (0.7-1.3) H 07/05/17 06:06 Est GFR ( Amer) 59.9 ml/min (>90) 07/05/17 06:06 Est GFR (Non-Af Amer) 49.5 ml/min 07/05/17 06:06 BUN/Creatinine Ratio 14.0 07/05/17 06:06 Glucose 140 mg/dL (70-105) H 07/05/17 06:06 POC Glucose 133 MG/DL (70 - 105) H 07/05/17 11:57 Hemoglobin A1c % 7.4 % (4.0-6.0) H 07/01/17 11:45 Whole Bld Lactic Acid 4.89 mmol/L (0.60-1.99) H* 07/01/17 14:30 Calcium 8.4 mg/dL (8.6-10.3) L 07/05/17 06:06 Phosphorus 2.7 mg/dL (2.5-5.0) 07/03/17 06:05 Magnesium 2.1 mg/dL (1.9-2.7) 07/03/17 06:05 Iron 90 ug/dL (38-169) 07/03/17 06:05 TIBC 169 ug/dL (250-450) L 07/03/17 06:05 Iron Saturation 53 % (15-55) 07/03/17 06:05 Unsaturated IBC 79 ug/dL (111-343) L 07/03/17 06:05 Total Bilirubin 0.5 mg/dL (0.3-1.0) 07/04/17 05:30 AST 53 U/L (13-39) H 07/04/17 05:30 ALT 11 U/L (7-52) 07/04/17 05:30 Alkaline Phosphatase 94 U/L (34-104) 07/04/17 05:30 Creatine Kinase 95 U/L (30-223) 07/01/17 11:45 Troponin I 0.08 ng/mL (0.01-0.05) H* D 07/01/17 11:45 Total Protein 7.5 gm/dL (6.0-8.3) 07/04/17 05:30 Albumin 2.3 gm/dL (4.2-5.5) L 07/04/17 05:30 Globulin 5.2 gm/dL 07/04/17 05:30 Albumin/Globulin Ratio 0.4 (1.0-1.8) L 07/04/17 05:30 TSH 0.87 uIU/ml (0.34-5.60) 07/02/17 05:58 PTH Intact 88 pg/mL (15-65) H 07/03/17 06:05 Urine Source MIDSTREAM 07/01/17 12:00 Urine Color YELLOW 07/01/17 12:00 Urine Clarity HAZY (CLEAR) 07/01/17 12:00 Urine pH 7.5 (4.6 - 8.0) 07/01/17 12:00 Ur Specific [place] 1.010 (1.005-1.030) 07/01/17 12:00 Urine Protein TRACE mg/dL (NEGATIVE) 07/01/17 12:00 Urine Glucose (UA) NEGATIVE mg/dL (NEGATIVE) 07/01/17 12:00 Urine Ketones NEGATIVE mg/dL (NEGATIVE) 07/01/17 12:00 Urine Blood TRACE (NEGATIVE) 07/01/17 12:00 Urine Nitrate NEGATIVE (NEGATIVE) 07/01/17 12:00 Urine Bilirubin NEGATIVE (NEGATIVE) 07/01/17 12:00 Urine Urobilinogen 0.2 E.U./dL (0.2 - 1.0) 07/01/17 12:00 Ur Leukocyte Esterase MODERATE (NEGATIVE) H 07/01/17 12:00 Urine RBC 2-5 /hpf (0-5) H 07/01/17 12:00 Urine WBC 50-100 /hpf (0-5) H 07/01/17 12:00 Ur Epithelial Cells FEW /lpf (FEW) 07/01/17 12:00 Urine Bacteria FEW /hpf (NONE SEEN) 07/01/17 12:00 - Physical Exam Vitals and I&O: Vital Signs Temp 97.3 F 07/05/17 08:00 Pulse 57 07/05/17 08:01 Resp 17 07/05/17 12:00 BP 105/63 07/05/17 08:00 Pulse Ox 98 07/05/17 08:01 Intake & Output 07/04/17 07/05/17 07/05/17 18:59 06:59 18:59 Intake Total 300 200 Balance 300 200 Weight (lbs) 87.09 kg 87.09 kg Intake: Oral 300 200 Tube Feeding 0 Other: # Voids 3 2 # Bowel Movements 1 1 Stool Characteristics Liquid Brown Brown Weight Source Estimated Bedscale Active Medications: Current Medications Acetaminophen (Tylenol) 650 mg PO Q4HR PRN PRN Reason: Pain Or Fever above 101 Stop: 08/30/17 22:19 Aspirin (Ecotrin) 81 mg PO DAILY [facility] Stop: 08/31/17 08:59 Last Admin: 07/05/17 09:09 Dose: 81 mg Carbidopa/Levodopa (Sinemet 25mg-100 Mg) 1 tab PO BID [facility] Stop: 08/31/17 16:59 Last Admin: 07/05/17 09:09 Dose: 1 tab Diphenoxylate HCl/Atropine (Lomotil) 1 tab PO Q6H PRN PRN Reason: Diarrhea Stop: 09/02/17 16:33 Sodium Chloride (Nacl 0.9%) 1,000 mls @ 70 mls/hr IV .[id number] [facility] Stop: 08/31/17 13:48 Last Admin: 07/04/17 17:15 Dose: 70 mls/hr Ceftriaxone Sodium 1 gm/ (Dextrose) 50 mls @ 100 mls/hr IV Q24H [facility] Stop: 09/01/17 16:59 Last Admin: 07/04/17 17:17 Dose: 100 mls/hr Insulin Aspart (Novolog) 1 units SUBQ ACHS MICHAEL PRN Reason: Protocol Stop: 08/30/17 16:46 Last Admin: 07/05/17 12:21 Dose: Not Given Lorazepam (Ativan) 1 mg IVP Q4HR PRN; Protocol PRN Reason: Agitation Stop: 09/01/17 11:52 Ondansetron HCl (Zofran) 4 mg IV Q6H PRN PRN Reason: Nausea / Vomiting Stop: 08/30/17 22:19 Sodium Bicarbonate (Sodium Bicarbonate) 650 mg PO BID MICHAEL PRN Reason: Protocol Stop: 09/01/17 16:59 Last Admin: 07/05/17 09:10 Dose: 650 mg General: no acute distress, well developed, well nourished HEENT: atraumatic, normocephalic, PERRLA, EOMI Neck: supple, no thyromegaly, no lymphadenopathy Cardiovascular: S1S2, regular Lungs: clear to auscultation bilaterally, clear to percussion Abdomen: soft, no tender, no distended Extremities: no cyanosis, no clubbing, no edema Neurological: other (Confused) Skin: intact - Procedures Procedures: Procedures Procedure Code Date OTHER GROUP THERAPY 94.44 04/06/14 Infectious Disease Assmt/Plan - Problem List Patient Problems: All Active Problems ABNORMAL LABORATORY RESULTS WBC, BUN (Acute) - Assessment Assessment: 1. UTI. 2. Agitation. 3. Diabetes mellitus type 2. 4. Acute kidney injury versus CK D. 5. Hypertension. - Plan Plan: Continue same treatment. Continue Rocephin, it can be changed to po levaquin 250mg daily for 3 days. Nutritional Asmnt/Malnutr-PDOC - Dietary Evaluation Malnutrition Findings (Please click <Entered> for more info): Nutritional Asmnt/Malnutrition Start: 07/02/17 11: 28 Text: Status: Complete Freq: Document 07/02/17 11:29 MIRA (Rec: 07/02/17 11:32 MIRA PINTO [email or web address]) Nutritional Asmnt/Malnutrition Patient General Information Nutritional Screening Consult Diagnosis Acute renal failure Pertinent Medical Hx/Surgical Hx morbid obesity,systolic heart failure, cardiomyopathy Subjective Information Pt sitting up in bed stated to come back tomorrow Current Diet Order/ Nutrition Support CCHO 45g Pertinent Medications novolog, zofran, NS @100ml/hr Pertinent Labs 07/02: Na 137, K 3.3, Cl 108, Co2 23.1, BUN 43, Cr 1.8, Ca 9 .5, phos 3.1, mg 1.8, glucose 100 Nutritional Hx/Data Height 1.75 m Height (Calculated Centimeters) 175.3 Current Weight (lbs) 85.729 kg Weight (Calculated Kilograms) 85.7 Weight (Calculated Grams) 53385.0 Body Mass Index (BMI) 27.8 Weight Status Overweight GI Symptoms GI Symptoms None Last BM none noted Cultural/Ethnic/Amish Belief Unknown Usual diet at home unknown Skin Integrity/Comment: emma core 15 Current %PO Fair (50-74%) Estimated Nutritional Goals BEE in Kcals: Using Current wt Calories/Kcals/Kg 30kcals/kg Kcals Calculated 2580kcals/day Protein: Using Current wt Protein g/kg/kg Protein Calculated 86g/day Fluid: ml per MD Nutritional Problem 1. Problem Problem No nutrition diagnosis at this time Intervention/Recommendation Comments Recommend continuing [facility] diet Expected Outcomes/Goals Expected Outcomes/Goals PO intake > 75% of meals
--- NOTE | 2017-07-05 16:03 | General Progress Note ---
Subjective - Review of Systems Service Date: 07/05/17 Subjective: Patient seen and examined awake confused Objective - Results Result Diagrams: 07/05/17 06:06 07/05/17 06:06 Recent Labs: Laboratory Last Values WBC 9.4 Th/cmm (4.8-10.8) 07/05/17 06:06 RBC 3.35 Mil/cmm (3.80-5.80) L 07/05/17 06:06 Hgb 11.1 gm/dL (12-16) L 07/05/17 06:06 Hct 30.8 % (41.0-60) L 07/05/17 06:06 MCV 92.1 fl (80-99) 07/05/17 06:06 MCH 33.2 pg (27.0-31.0) H 07/05/17 06:06 MCHC Differential 36.0 pg (28.0-36.0) 07/05/17 06:06 RDW 12.8 % (11.5-20.0) 07/05/17 06:06 Plt Count 174 Th/cmm (150-400) 07/05/17 06:06 MPV 8.6 fl 07/05/17 06:06 Neutrophils % 51.8 % (40.0-80.0) 07/05/17 06:06 Lymphocytes % 33.8 % (20.0-50.0) 07/05/17 06:06 Monocytes % 10.3 % (2.0-10.0) H 07/05/17 06:06 Eosinophils % 3.1 % (0.0-5.0) 07/05/17 06:06 Basophils % 1.0 % (0.0-2.0) 07/05/17 06:06 PT 11.2 SECONDS (9.5-11.5) 07/01/17 11:45 INR 1.08 (0.5-1.4) 07/01/17 11:45 PTT (Actin FS) 27.8 SECONDS (26.0-38.0) 07/01/17 11:45 Sodium 134 mEq/L (136-145) L 07/05/17 06:06 Potassium 3.0 mEq/L (3.5-5.1) L 07/05/17 06:06 Chloride 109 mEq/L (98-107) H 07/05/17 06:06 Carbon Dioxide 18.7 mEq/L (21.0-31.0) L 07/05/17 06:06 Anion Gap 9.3 (7.0-16.0) 07/05/17 06:06 BUN 21 mg/dL (7-25) 07/05/17 06:06 Creatinine 1.5 mg/dL (0.7-1.3) H 07/05/17 06:06 Est GFR ( Amer) 59.9 ml/min (>90) 07/05/17 06:06 Est GFR (Non-Af Amer) 49.5 ml/min 07/05/17 06:06 BUN/Creatinine Ratio 14.0 07/05/17 06:06 Glucose 140 mg/dL (70-105) H 07/05/17 06:06 POC Glucose 133 MG/DL (70 - 105) H 07/05/17 11:57 Hemoglobin A1c % 7.4 % (4.0-6.0) H 07/01/17 11:45 Whole Bld Lactic Acid 4.89 mmol/L (0.60-1.99) H* 07/01/17 14:30 Calcium 8.4 mg/dL (8.6-10.3) L 07/05/17 06:06 Phosphorus 2.7 mg/dL (2.5-5.0) 07/03/17 06:05 Magnesium 2.1 mg/dL (1.9-2.7) 07/03/17 06:05 Iron 90 ug/dL (38-169) 07/03/17 06:05 TIBC 169 ug/dL (250-450) L 07/03/17 06:05 Iron Saturation 53 % (15-55) 07/03/17 06:05 Unsaturated IBC 79 ug/dL (111-343) L 07/03/17 06:05 Total Bilirubin 0.5 mg/dL (0.3-1.0) 07/04/17 05:30 AST 53 U/L (13-39) H 07/04/17 05:30 ALT 11 U/L (7-52) 07/04/17 05:30 Alkaline Phosphatase 94 U/L (34-104) 07/04/17 05:30 Creatine Kinase 95 U/L (30-223) 07/01/17 11:45 Troponin I 0.08 ng/mL (0.01-0.05) H* D 07/01/17 11:45 Total Protein 7.5 gm/dL (6.0-8.3) 07/04/17 05:30 Albumin 2.3 gm/dL (4.2-5.5) L 07/04/17 05:30 Globulin 5.2 gm/dL 07/04/17 05:30 Albumin/Globulin Ratio 0.4 (1.0-1.8) L 07/04/17 05:30 TSH 0.87 uIU/ml (0.34-5.60) 07/02/17 05:58 PTH Intact 88 pg/mL (15-65) H 07/03/17 06:05 Urine Source MIDSTREAM 07/01/17 12:00 Urine Color YELLOW 07/01/17 12:00 Urine Clarity HAZY (CLEAR) 07/01/17 12:00 Urine pH 7.5 (4.6 - 8.0) 07/01/17 12:00 Ur Specific [place] 1.010 (1.005-1.030) 07/01/17 12:00 Urine Protein TRACE mg/dL (NEGATIVE) 07/01/17 12:00 Urine Glucose (UA) NEGATIVE mg/dL (NEGATIVE) 07/01/17 12:00 Urine Ketones NEGATIVE mg/dL (NEGATIVE) 07/01/17 12:00 Urine Blood TRACE (NEGATIVE) 07/01/17 12:00 Urine Nitrate NEGATIVE (NEGATIVE) 07/01/17 12:00 Urine Bilirubin NEGATIVE (NEGATIVE) 07/01/17 12:00 Urine Urobilinogen 0.2 E.U./dL (0.2 - 1.0) 07/01/17 12:00 Ur Leukocyte Esterase MODERATE (NEGATIVE) H 07/01/17 12:00 Urine RBC 2-5 /hpf (0-5) H 07/01/17 12:00 Urine WBC 50-100 /hpf (0-5) H 07/01/17 12:00 Ur Epithelial Cells FEW /lpf (FEW) 07/01/17 12:00 Urine Bacteria FEW /hpf (NONE SEEN) 07/01/17 12:00 - Physical Exam Vitals and I&O: Vital Signs Temp 97.3 F 07/05/17 08:00 Pulse 57 07/05/17 08:01 Resp 17 07/05/17 12:00 BP 105/63 07/05/17 08:00 Pulse Ox 98 07/05/17 08:01 Intake & Output 07/04/17 07/05/17 07/05/17 18:59 06:59 18:59 Intake Total 300 200 Balance 300 200 Weight (lbs) 87.09 kg 87.09 kg Intake: Oral 300 200 Tube Feeding 0 Other: # Voids 3 2 # Bowel Movements 1 1 Stool Characteristics Liquid Brown Brown Weight Source Estimated Bedscale Active Medications: Current Medications Acetaminophen (Tylenol) 650 mg PO Q4HR PRN PRN Reason: Pain Or Fever above 101 Stop: 08/30/17 22:19 Aspirin (Ecotrin) 81 mg PO DAILY [facility] Stop: 08/31/17 08:59 Last Admin: 07/05/17 09:09 Dose: 81 mg Carbidopa/Levodopa (Sinemet 25mg-100 Mg) 1 tab PO BID [facility] Stop: 08/31/17 16:59 Last Admin: 07/05/17 09:09 Dose: 1 tab Diphenoxylate HCl/Atropine (Lomotil) 1 tab PO Q6H PRN PRN Reason: Diarrhea Stop: 09/02/17 16:33 Sodium Chloride (Nacl 0.9%) 1,000 mls @ 70 mls/hr IV .[id number] [facility] Stop: 08/31/17 13:48 Last Admin: 07/04/17 17:15 Dose: 70 mls/hr Ceftriaxone Sodium 1 gm/ (Dextrose) 50 mls @ 100 mls/hr IV Q24H [facility] Stop: 09/01/17 16:59 Last Admin: 07/04/17 17:17 Dose: 100 mls/hr Insulin Aspart (Novolog) 1 units SUBQ ACHS MICHAEL PRN Reason: Protocol Stop: 08/30/17 16:46 Last Admin: 07/05/17 12:21 Dose: Not Given Lorazepam (Ativan) 1 mg IVP Q4HR PRN; Protocol PRN Reason: Agitation Stop: 09/01/17 11:52 Ondansetron HCl (Zofran) 4 mg IV Q6H PRN PRN Reason: Nausea / Vomiting Stop: 08/30/17 22:19 Sodium Bicarbonate (Sodium Bicarbonate) 650 mg PO BID MICHAEL PRN Reason: Protocol Stop: 09/01/17 16:59 Last Admin: 07/05/17 09:10 Dose: 650 mg General: No acute distress Cardiovascular: Regular rate Lungs: Clear to auscultation Abdomen: Soft, no Tender, no Distended - Procedures Procedures: Procedures Procedure Code Date OTHER GROUP THERAPY 94.44 04/06/14 Assessment/Plan - Problem List Patient Problems: All Active Problems ABNORMAL LABORATORY RESULTS WBC, BUN (Acute) - Assessment Assessment: Complicated UTI Acute on CKD Hypokalemia Diarrhea Parkinson's disease DM II HTN Cardiomyopathy Dementia Psych disorder - Plan Plan: IV antibiotics IV fluids Accucheck Urology consulted for erickson cath Sinemet ID Nephrology on board Follow up labs in am Plan of care discussed with nursing staff Nutritional Asmnt/Malnutr-PDOC - Dietary Evaluation Malnutrition Findings (Please click <Entered> for more info): Nutritional Asmnt/Malnutrition Start: 07/02/17 11: 28 Text: Status: Complete Freq: Document 07/02/17 11:29 MIRA (Rec: 07/02/17 11:32 MIRA PINTO [email or web address]) Nutritional Asmnt/Malnutrition Patient General Information Nutritional Screening Consult Diagnosis Acute renal failure Pertinent Medical Hx/Surgical Hx morbid obesity,systolic heart failure, cardiomyopathy Subjective Information Pt sitting up in bed stated to come back tomorrow Current Diet Order/ Nutrition Support CCHO 45g Pertinent Medications novolog, zofran, NS @100ml/hr Pertinent Labs 07/02: Na 137, K 3.3, Cl 108, Co2 23.1, BUN 43, Cr 1.8, Ca 9 .5, phos 3.1, mg 1.8, glucose 100 Nutritional Hx/Data Height 1.75 m Height (Calculated Centimeters) 175.3 Current Weight (lbs) 85.729 kg Weight (Calculated Kilograms) 85.7 Weight (Calculated Grams) 48385.0 Body Mass Index (BMI) 27.8 Weight Status Overweight GI Symptoms GI Symptoms None Last BM none noted Cultural/Ethnic/Congregation Belief Unknown Usual diet at home unknown Skin Integrity/Comment: emma french 15 Current %PO Fair (50-74%) Estimated Nutritional Goals BEE in Kcals: Using Current wt Calories/Kcals/Kg 30kcals/kg Kcals Calculated 2580kcals/day Protein: Using Current wt Protein g/kg/kg Protein Calculated 86g/day Fluid: ml per MD Nutritional Problem 1. Problem Problem No nutrition diagnosis at this time Intervention/Recommendation Comments Recommend continuing [facility] diet Expected Outcomes/Goals Expected Outcomes/Goals PO intake > 75% of meals
[2017-07-05] MEDS: Sodium Chloride 0.9% 1,000 ML IV SCH (20:41)
--- NOTE | 2017-07-06 04:18 | Progress Notes ---
DATE: SUBJECTIVE: Chart reviewed and the patient interviewed. Also discussed the patient's condition the staff and reviewed records and labs. The patient is still ____. The patient also seems to be slightly sedated today. Decreased behavior problems and decreased agitation. Today, the patient does not answer any of my questions because of a slightly sedated. Otherwise, the patient is compliant with taking his medications. We will continue monitoring his behavior and continue to follow up. [facility]# [id number]
[2017-07-06 06:27] LABS: INR 1.14 (0.5-1.4)
[2017-07-06] MEDS: INSULIN ASPART, RECOMBINANT 100 UNITS/ML SUBQ SCH ×4 (06:35→20:48)
[2017-07-06 06:36] LABS: % BASOPHILS 0.7 % (0.0-2.0); % EOSINOPHILS 3.2 % (0.0-5.0); % LYMPHOCYTES 31.5 % (20.0-50.0); % MONOCYTES 10.3 % (2.0-10.0); % NEUTROPHILS 54.3 % (40.0-80.0); ANION GAP 7.8 (7.0-16.0); BASOPHILE ABSOLUTE 0.1 Th/cumm (0-0.2); BUN - UREA NITROGEN 17 mg/dL (7-25); CALCIUM SERUM 8.3 mg/dL (8.6-10.3); CARBON DIOXIDE 20.3 mEq/L (21.0-31.0); CHLORIDE 108 mEq/L (98-107); CREATININE - SERUM 1.4 mg/dL (0.7-1.3); EOSINOPHILE ABSOLUTE 0.4 Th/cmm (0.1-0.4); GFR AFRICAN-AMERICAN > 60.0 ml/min (>90); GFR NON AFRICAN-AMERICAN 53.6 ml/min; GLUCOSE 122 mg/dL (70-105); HEMATOCRIT 30.3 % (41.0-60); HEMOGLOBIN 10.3 gm/dL (12-16); LYMPHOCYTE ABSOLUTE 3.5 Th/cmm (1.5-3.0); MEAN CELL VOLUME 95.2 fl (80-99); MEAN CORPUSCULAR HEMOGLOBIN 32.3 pg (27.0-31.0); MEAN CORPUSCULAR HGB CONC 33.9 pg (28.0-36.0); MEAN PLATELET VOLUME 8.9 fl; MONOCYTE ABSOLUTE 1.1 Th/cmm (0.3-1.0); NEUTROPHILE ABSOLUTE 5.9 Th/cmm (1.8-8.0); PLATELET COUNT 181 Th/cmm (150-400); POTASSIUM SERUM 3.1 mEq/L (3.5-5.1); RED BLOOD COUNT 3.18 Mil/cmm (3.80-5.80); RED CELL DISTRIBUTION WIDTH 12.9 % (11.5-20.0); SODIUM SERUM 133 mEq/L (136-145)
[2017-07-06] MEDS ORDERED: Potassium Chloride 40 MEQ, Lidocaine 1% 20mL Vial 25 MG in Sodium Chloride 0.9% 250 ML IV ONE (08:02)
[2017-07-06] MEDS: KCL 20mEq/100mL Premix 20 MEQ/100 ML PIGGYBACK IV SCH ×2 (10:42→17:11)
[2017-07-06] MEDS: Sodium Chloride 0.9% 1,000 ML IV SCH (12:44)
--- NOTE | 2017-07-06 12:50 | Progress Notes ---
DATE: LOCATION: Room 15, bed B, [facility]. SUBJECTIVE: The patient is not in any distress. OBJECTIVE: VITAL SIGNS: Temperature 97.3, pulse 57, respirations 16, blood pressure 105/63. Yesterday's intake 1750. HEART: Regular. LUNGS: Good air entry. EXTREMITIES: No edema. LABORATORY DATA: Hemoglobin 11.1. Sodium 134, potassium 3.0, chloride 109, CO2 18, BUN 21, creatinine 1.9, calcium 8.4. ASSESSMENT: 1. Acute kidney injury, improving. 2. Hyponatremia. 3. Hypokalemia. 4. Lactic acidosis, improving. 5. Anemia. 6. Hypotension. PLAN: KCl rider will be given one time today. The patient's kidney functions are improving. Check CMP, phosphorus, magnesium in the morning. Continue other treatment. JOB# [id number]
--- NOTE | 2017-07-06 13:28 | General Progress Note ---
Subjective - Review of Systems Service Date: 07/06/17 Subjective: Patient seen and examined scheduled for left shoulder biopsy today Objective - Results Result Diagrams: 07/06/17 05:40 07/06/17 05:40 Recent Labs: Laboratory Last Values WBC 11.0 Th/cmm (4.8-10.8) H 07/06/17 05:40 RBC 3.18 Mil/cmm (3.80-5.80) L 07/06/17 05:40 Hgb 10.3 gm/dL (12-16) L 07/06/17 05:40 Hct 30.3 % (41.0-60) L 07/06/17 05:40 MCV 95.2 fl (80-99) 07/06/17 05:40 MCH 32.3 pg (27.0-31.0) H 07/06/17 05:40 MCHC Differential 33.9 pg (28.0-36.0) 07/06/17 05:40 RDW 12.9 % (11.5-20.0) 07/06/17 05:40 Plt Count 181 Th/cmm (150-400) 07/06/17 05:40 MPV 8.9 fl 07/06/17 05:40 Neutrophils % 54.3 % (40.0-80.0) 07/06/17 05:40 Lymphocytes % 31.5 % (20.0-50.0) 07/06/17 05:40 Monocytes % 10.3 % (2.0-10.0) H 07/06/17 05:40 Eosinophils % 3.2 % (0.0-5.0) 07/06/17 05:40 Basophils % 0.7 % (0.0-2.0) 07/06/17 05:40 PT 12.0 SECONDS (9.5-11.5) H 07/06/17 05:40 INR 1.14 (0.5-1.4) 07/06/17 05:40 PTT (Actin FS) 30.3 SECONDS (26.0-38.0) 07/06/17 05:40 Sodium 133 mEq/L (136-145) L 07/06/17 05:40 Potassium 3.1 mEq/L (3.5-5.1) L 07/06/17 05:40 Chloride 108 mEq/L (98-107) H 07/06/17 05:40 Carbon Dioxide 20.3 mEq/L (21.0-31.0) L 07/06/17 05:40 Anion Gap 7.8 (7.0-16.0) 07/06/17 05:40 BUN 17 mg/dL (7-25) 07/06/17 05:40 Creatinine 1.4 mg/dL (0.7-1.3) H 07/06/17 05:40 Est GFR ( Amer) > 60.0 ml/min (>90) 07/06/17 05:40 Est GFR (Non-Af Amer) 53.6 ml/min 07/06/17 05:40 BUN/Creatinine Ratio 12.1 07/06/17 05:40 Glucose 122 mg/dL (70-105) H 07/06/17 05:40 POC Glucose 111 MG/DL (70 - 105) H 07/06/17 12:26 Hemoglobin A1c % 7.4 % (4.0-6.0) H 07/01/17 11:45 Whole Bld Lactic Acid 4.89 mmol/L (0.60-1.99) H* 07/01/17 14:30 Calcium 8.3 mg/dL (8.6-10.3) L 07/06/17 05:40 Phosphorus 2.7 mg/dL (2.5-5.0) 07/03/17 06:05 Magnesium 2.1 mg/dL (1.9-2.7) 07/03/17 06:05 Iron 90 ug/dL (38-169) 07/03/17 06:05 TIBC 169 ug/dL (250-450) L 07/03/17 06:05 Iron Saturation 53 % (15-55) 07/03/17 06:05 Unsaturated IBC 79 ug/dL (111-343) L 07/03/17 06:05 Total Bilirubin 0.5 mg/dL (0.3-1.0) 07/04/17 05:30 AST 53 U/L (13-39) H 07/04/17 05:30 ALT 11 U/L (7-52) 07/04/17 05:30 Alkaline Phosphatase 94 U/L (34-104) 07/04/17 05:30 Creatine Kinase 95 U/L (30-223) 05/04/18 11:45 Troponin I 0.08 ng/mL (0.01-0.05) H* D 07/01/17 11:45 Total Protein 7.5 gm/dL (6.0-8.3) 07/04/17 05:30 Albumin 2.3 gm/dL (4.2-5.5) L 07/04/17 05:30 Globulin 5.2 gm/dL 07/04/17 05:30 Albumin/Globulin Ratio 0.4 (1.0-1.8) L 07/04/17 05:30 TSH 0.87 uIU/ml (0.34-5.60) 07/02/17 05:58 PTH Intact 88 pg/mL (15-65) H 07/03/17 06:05 Urine Source MIDSTREAM 07/01/17 12:00 Urine Color YELLOW 07/01/17 12:00 Urine Clarity HAZY (CLEAR) 07/01/17 12:00 Urine pH 7.5 (4.6 - 8.0) 07/01/17 12:00 Ur Specific [place] 1.010 (1.005-1.030) 07/01/17 12:00 Urine Protein TRACE mg/dL (NEGATIVE) 07/01/17 12:00 Urine Glucose (UA) NEGATIVE mg/dL (NEGATIVE) 07/01/17 12:00 Urine Ketones NEGATIVE mg/dL (NEGATIVE) 07/01/17 12:00 Urine Blood TRACE (NEGATIVE) 07/01/17 12:00 Urine Nitrate NEGATIVE (NEGATIVE) 07/01/17 12:00 Urine Bilirubin NEGATIVE (NEGATIVE) 07/01/17 12:00 Urine Urobilinogen 0.2 E.U./dL (0.2 - 1.0) 07/01/17 12:00 Ur Leukocyte Esterase MODERATE (NEGATIVE) H 07/01/17 12:00 Urine RBC 2-5 /hpf (0-5) H 07/01/17 12:00 Urine WBC 50-100 /hpf (0-5) H 07/01/17 12:00 Ur Epithelial Cells FEW /lpf (FEW) 07/01/17 12:00 Urine Bacteria FEW /hpf (NONE SEEN) 07/01/17 12:00 - Physical Exam Vitals and I&O: Vital Signs Temp 97.5 F 07/06/17 04:49 Pulse 72 07/06/17 04:49 Resp 18 07/06/17 04:49 BP 110/50 07/06/17 04:49 Pulse Ox 98 07/06/17 04:49 Intake & Output 07/05/17 07/06/17 07/06/17 18:59 06:59 18:59 Intake Total 1120 1000 Balance 1120 1000 Weight (lbs) 87.09 kg Intake: Intake, IV Amount 1000 1000 Sodium Chloride 0.9% 1, 1000 1000 000 ml @ 70 mls/hr IV . [id number] [facility] Rx#:[id number] Oral 120 Other: Weight Source Bedscale Active Medications: Current Medications Acetaminophen (Tylenol) 650 mg PO Q4HR PRN PRN Reason: Pain Or Fever above 101 Stop: 08/30/17 22:19 Aspirin (Ecotrin) 81 mg PO DAILY [facility] Stop: 08/31/17 08:59 Last Admin: 07/06/17 09:30 Dose: Not Given Carbidopa/Levodopa (Sinemet 25mg-100 Mg) 1 tab PO BID [facility] Stop: 08/31/17 16:59 Last Admin: 07/06/17 09:30 Dose: Not Given Diphenoxylate HCl/Atropine (Lomotil) 1 tab PO Q6H PRN PRN Reason: Diarrhea Stop: 09/02/17 16:33 Sodium Chloride (Nacl 0.9%) 1,000 mls @ 70 mls/hr IV .[id number] [facility] Stop: 08/31/17 13:48 Last Admin: 07/06/17 12:44 Dose: 70 mls/hr Ceftriaxone Sodium 1 gm/ (Dextrose) 50 mls @ 100 mls/hr IV Q24H [facility] Stop: 09/01/17 16:59 Last Admin: 07/05/17 16:24 Dose: 100 mls/hr Insulin Aspart (Novolog) 1 units SUBQ ACHS MICHAEL PRN Reason: Protocol Stop: 08/30/17 16:46 Last Admin: 07/06/17 12:31 Dose: Not Given Lorazepam (Ativan) 1 mg IVP Q4HR PRN; Protocol PRN Reason: Agitation Stop: 09/01/17 11:52 Ondansetron HCl (Zofran) 4 mg IV Q6H PRN PRN Reason: Nausea / Vomiting Stop: 08/30/17 22:19 Potassium Chloride (Klor-Con) 40 meq PO X1 ONE Stop: 07/06/17 17:01 Sodium Bicarbonate (Sodium Bicarbonate) 650 mg PO BID MICHAEL PRN Reason: Protocol Stop: 09/01/17 16:59 Last Admin: 07/06/17 09:31 Dose: Not Given General: No acute distress Cardiovascular: Regular rate Lungs: Clear to auscultation - Procedures Procedures: Procedures Procedure Code Date OTHER GROUP THERAPY 94.44 04/06/14 Assessment/Plan - Problem List Patient Problems: All Active Problems ABNORMAL LABORATORY RESULTS WBC, BUN (Acute) - Assessment Assessment: left shoulder skin lesion Complicated UTI Acute on CKD Hypokalemia Diarrhea Parkinson's disease DM II HTN Cardiomyopathy Dementia Psych disorder - Plan Plan: Skin biopsy K supplement IV antibiotics IV fluids Accucheck Sinemet ID Nephrology on board Follow up labs in am Plan of care discussed with nursing staff Nutritional Asmnt/Malnutr-PDOC - Dietary Evaluation Malnutrition Findings (Please click <Entered> for more info): Nutritional Asmnt/Malnutrition Start: 07/02/17 11: 28 Text: Status: Complete Freq: Document 07/02/17 11:29 MIRA (Rec: 07/02/17 11:32 MIRA PINTO- [email or web address]) Nutritional Asmnt/Malnutrition Patient General Information Nutritional Screening Consult Diagnosis Acute renal failure Pertinent Medical Hx/Surgical Hx morbid obesity,systolic heart failure, cardiomyopathy Subjective Information Pt sitting up in bed stated to come back tomorrow Current Diet Order/ Nutrition Support CCHO 45g Pertinent Medications novolog, zofran, NS @100ml/hr Pertinent Labs 07/02: Na 137, K 3.3, Cl 108, Co2 23.1, BUN 43, Cr 1.8, Ca 9 .5, phos 3.1, mg 1.8, glucose 100 Nutritional Hx/Data Height 1.75 m Height (Calculated Centimeters) 175.3 Current Weight (lbs) 85.729 kg Weight (Calculated Kilograms) 85.7 Weight (Calculated Grams) 63162.0 Body Mass Index (BMI) 27.8 Weight Status Overweight GI Symptoms GI Symptoms None Last BM none noted Cultural/Ethnic/Yazidi Belief Unknown Usual diet at home unknown Skin Integrity/Comment: brad[place] 15 Current %PO Fair (50-74%) Estimated Nutritional Goals BEE in Kcals: Using Current wt Calories/Kcals/Kg 30kcals/kg Kcals Calculated 2580kcals/day Protein: Using Current wt Protein g/kg/kg Protein Calculated 86g/day Fluid: ml per MD Nutritional Problem 1. Problem Problem No nutrition diagnosis at this time Intervention/Recommendation Comments Recommend continuing CCHO diet Expected Outcomes/Goals Expected Outcomes/Goals PO intake > 75% of meals
[2017-07-06] MEDS ORDERED: fentaNYL Citrate 100 mcg/2mL Vial IV ONE (13:55)
[2017-07-06] MEDS ORDERED: Midazolam 1mg/ml 2 ml vial IV ONE (13:55)
--- NOTE | 2017-07-06 14:05 | General Progress Note ---
Subjective - Review of Systems Service Date: 07/05/17 Events since last encounter: twp physicians signed consent for medical necssity for a possible maignant lesion left shoulder Objective - Results Result Diagrams: 07/06/17 05:40 07/06/17 05:40 Recent Labs: Laboratory Last Values WBC 11.0 Th/cmm (4.8-10.8) H 07/06/17 05:40 RBC 3.18 Mil/cmm (3.80-5.80) L 07/06/17 05:40 Hgb 10.3 gm/dL (12-16) L 07/06/17 05:40 Hct 30.3 % (41.0-60) L 07/06/17 05:40 MCV 95.2 fl (80-99) 07/06/17 05:40 MCH 32.3 pg (27.0-31.0) H 07/06/17 05:40 MCHC Differential 33.9 pg (28.0-36.0) 07/06/17 05:40 RDW 12.9 % (11.5-20.0) 07/06/17 05:40 Plt Count 181 Th/cmm (150-400) 07/06/17 05:40 MPV 8.9 fl 07/06/17 05:40 Neutrophils % 54.3 % (40.0-80.0) 07/06/17 05:40 Lymphocytes % 31.5 % (20.0-50.0) 07/06/17 05:40 Monocytes % 10.3 % (2.0-10.0) H 07/06/17 05:40 Eosinophils % 3.2 % (0.0-5.0) 07/06/17 05:40 Basophils % 0.7 % (0.0-2.0) 07/06/17 05:40 PT 12.0 SECONDS (9.5-11.5) H 07/06/17 05:40 INR 1.14 (0.5-1.4) 07/06/17 05:40 PTT (Actin FS) 30.3 SECONDS (26.0-38.0) 07/06/17 05:40 Sodium 133 mEq/L (136-145) L 07/06/17 05:40 Potassium 3.1 mEq/L (3.5-5.1) L 07/06/17 05:40 Chloride 108 mEq/L (98-107) H 07/06/17 05:40 Carbon Dioxide 20.3 mEq/L (21.0-31.0) L 07/06/17 05:40 Anion Gap 7.8 (7.0-16.0) 07/06/17 05:40 BUN 17 mg/dL (7-25) 07/06/17 05:40 Creatinine 1.4 mg/dL (0.7-1.3) H 07/06/17 05:40 Est GFR ( Amer) > 60.0 ml/min (>90) 07/06/17 05:40 Est GFR (Non-Af Amer) 53.6 ml/min 07/06/17 05:40 BUN/Creatinine Ratio 12.1 07/06/17 05:40 Glucose 122 mg/dL (70-105) H 07/06/17 05:40 POC Glucose 111 MG/DL (70 - 105) H 07/06/17 12:26 Hemoglobin A1c % 7.4 % (4.0-6.0) H 07/01/17 11:45 Whole Bld Lactic Acid 4.89 mmol/L (0.60-1.99) H* 07/01/17 14:30 Calcium 8.3 mg/dL (8.6-10.3) L 07/06/17 05:40 Phosphorus 2.7 mg/dL (2.5-5.0) 07/03/17 06:05 Magnesium 2.1 mg/dL (1.9-2.7) 07/03/17 06:05 Iron 90 ug/dL (38-169) 07/03/17 06:05 TIBC 169 ug/dL (250-450) L 07/03/17 06:05 Iron Saturation 53 % (15-55) 07/03/17 06:05 Unsaturated IBC 79 ug/dL (111-343) L 07/03/17 06:05 Total Bilirubin 0.5 mg/dL (0.3-1.0) 07/04/17 05:30 AST 53 U/L (13-39) H 07/04/17 05:30 ALT 11 U/L (7-52) 07/04/17 05:30 Alkaline Phosphatase 94 U/L (34-104) 07/04/17 05:30 Creatine Kinase 95 U/L (30-223) 07/01/17 11:45 Troponin I 0.08 ng/mL (0.01-0.05) H* D 07/01/17 11:45 Total Protein 7.5 gm/dL (6.0-8.3) 07/04/17 05:30 Albumin 2.3 gm/dL (4.2-5.5) L 07/04/17 05:30 Globulin 5.2 gm/dL 07/04/17 05:30 Albumin/Globulin Ratio 0.4 (1.0-1.8) L 07/04/17 05:30 TSH 0.87 uIU/ml (0.34-5.60) 07/02/17 05:58 PTH Intact 88 pg/mL (15-65) H 07/03/17 06:05 Urine Source MIDSTREAM 07/01/17 12:00 Urine Color YELLOW 07/01/17 12:00 Urine Clarity HAZY (CLEAR) 07/01/17 12:00 Urine pH 7.5 (4.6 - 8.0) 07/01/17 12:00 Ur Specific [place] 1.010 (1.005-1.030) 07/01/17 12:00 Urine Protein TRACE mg/dL (NEGATIVE) 07/01/17 12:00 Urine Glucose (UA) NEGATIVE mg/dL (NEGATIVE) 07/01/17 12:00 Urine Ketones NEGATIVE mg/dL (NEGATIVE) 07/01/17 12:00 Urine Blood TRACE (NEGATIVE) 07/01/17 12:00 Urine Nitrate NEGATIVE (NEGATIVE) 07/01/17 12:00 Urine Bilirubin NEGATIVE (NEGATIVE) 07/01/17 12:00 Urine Urobilinogen 0.2 E.U./dL (0.2 - 1.0) 07/01/17 12:00 Ur Leukocyte Esterase MODERATE (NEGATIVE) H 07/01/17 12:00 Urine RBC 2-5 /hpf (0-5) H 07/01/17 12:00 Urine WBC 50-100 /hpf (0-5) H 07/01/17 12:00 Ur Epithelial Cells FEW /lpf (FEW) 07/01/17 12:00 Urine Bacteria FEW /hpf (NONE SEEN) 07/01/17 12:00 - Physical Exam Vitals and I&O: Vital Signs Temp 97.5 F 07/06/17 04:49 Pulse 72 07/06/17 04:49 Resp 18 07/06/17 04:49 BP 110/50 07/06/17 04:49 Pulse Ox 98 07/06/17 04:49 Intake & Output 07/05/17 07/06/17 07/06/17 18:59 06:59 18:59 Intake Total 1120 1000 Balance 1120 1000 Weight (lbs) 87.09 kg Intake: Intake, IV Amount 1000 1000 Sodium Chloride 0.9% 1, 1000 1000 000 ml @ 70 mls/hr IV . [id number] [facility] Rx#:[id number] Oral 120 Other: Weight Source Bedscale Active Medications: Current Medications Acetaminophen (Tylenol) 650 mg PO Q4HR PRN PRN Reason: Pain Or Fever above 101 Stop: 08/30/17 22:19 Aspirin (Ecotrin) 81 mg PO DAILY [facility] Stop: 08/31/17 08:59 Last Admin: 07/06/17 09:30 Dose: Not Given Carbidopa/Levodopa (Sinemet 25mg-100 Mg) 1 tab PO BID [facility] Stop: 08/31/17 16:59 Last Admin: 07/06/17 09:30 Dose: Not Given Diphenoxylate HCl/Atropine (Lomotil) 1 tab PO Q6H PRN PRN Reason: Diarrhea Stop: 09/02/17 16:33 Sodium Chloride (Nacl 0.9%) 1,000 mls @ 70 mls/hr IV .[id number] [facility] Stop: 08/31/17 13:48 Last Admin: 07/06/17 12:44 Dose: 70 mls/hr Ceftriaxone Sodium 1 gm/ (Dextrose) 50 mls @ 100 mls/hr IV Q24H [facility] Stop: 09/01/17 16:59 Last Admin: 07/05/17 16:24 Dose: 100 mls/hr Insulin Aspart (Novolog) 1 units SUBQ ACHS MICHAEL PRN Reason: Protocol Stop: 08/30/17 16:46 Last Admin: 07/06/17 12:31 Dose: Not Given Lorazepam (Ativan) 1 mg IVP Q4HR PRN; Protocol PRN Reason: Agitation Stop: 09/01/17 11:52 Ondansetron HCl (Zofran) 4 mg IV Q6H PRN PRN Reason: Nausea / Vomiting Stop: 08/30/17 22:19 Potassium Chloride (Klor-Con) 40 meq PO X1 ONE Stop: 07/06/17 17:01 Sodium Bicarbonate (Sodium Bicarbonate) 650 mg PO BID MICHAEL PRN Reason: Protocol Stop: 09/01/17 16:59 Last Admin: 07/06/17 09:31 Dose: Not Given General: No acute distress Cardiovascular: Regular rate Lungs: Clear to auscultation Abdomen: Soft, no Tender, no Distended - Procedures Procedures: Procedures Procedure Code Date OTHER GROUP THERAPY 94.44 04/06/14 Assessment/Plan - Problem List Patient Problems: All Active Problems ABNORMAL LABORATORY RESULTS WBC, BUN (Acute) Nutritional Asmnt/Malnutr-PDOC - Dietary Evaluation Malnutrition Findings (Please click <Entered> for more info): Nutritional Asmnt/Malnutrition Start: 07/02/17 11: 28 Text: Status: Complete Freq: Document 07/02/17 11:29 MIRA (Rec: 07/02/17 11:32 MIRA MILLIE FN) Nutritional Asmnt/Malnutrition Patient General Information Nutritional Screening Consult Diagnosis Acute renal failure Pertinent Medical Hx/Surgical Hx morbid obesity,systolic heart failure, cardiomyopathy Subjective Information Pt sitting up in bed stated to come back tomorrow Current Diet Order/ Nutrition Support CCHO 45g Pertinent Medications novolog, zofran, NS @100ml/hr Pertinent Labs 5: Na 137, K 3.3, Cl 108, Co2 23.1, BUN 43, Cr 1.8, Ca 9 .5, phos 3.1, mg 1.8, glucose 100 Nutritional Hx/Data Height 1.75 m Height (Calculated Centimeters) 175.3 Current Weight (lbs) 85.729 kg Weight (Calculated Kilograms) 85.7 Weight (Calculated Grams) 76274.0 Body Mass Index (BMI) 27.8 Weight Status Overweight GI Symptoms GI Symptoms None Last BM none noted Cultural/Ethnic/Nondenominational Belief Unknown Usual diet at home unknown Skin Integrity/Comment: emma french 15 Current %PO Fair (50-74%) Estimated Nutritional Goals BEE in Kcals: Using Current wt Calories/Kcals/Kg 30kcals/kg Kcals Calculated 2580kcals/day Protein: Using Current wt Protein g/kg/kg Protein Calculated 86g/day Fluid: ml per MD Nutritional Problem 1. Problem Problem No nutrition diagnosis at this time Intervention/Recommendation Comments Recommend continuing [facility] diet Expected Outcomes/Goals Expected Outcomes/Goals PO intake > 75% of meals
[2017-07-06] MEDS ORDERED: Bupivacaine 0.5% 10 mL Vial ONE (14:07)
--- NOTE | 2017-07-06 16:29 | History & Physical ---
ADMIT DATE: 07/04/2017 SURGICAL CONSULTATION REFERRING PHYSICIAN: Dr. Gregorio. REASON FOR CONSULTATION: Skin lesion, left shoulder, likely malignant. Thank you for referring this patient to me. HISTORY OF PRESENT ILLNESS: This is a 66-year-old male who was admitted because of lethargy and abnormal labs. PAST MEDICAL HISTORY: Cardiomyopathy, heart failure, diabetes, obesity and dementia. LABORATORY STUDIES: On admission, the CBC is essentially normal. Chemistry: BUN and creatinine are normal. The blood sugar was 133. The chest x-ray shows no focal pulmonary process. Ultrasound of the kidney was done and no hydronephrosis was noted, were some small right renal cysts. The patient has been seen in consultation by Dr. Handy, Infectious Disease and Dr. Drew, Psychiatry and ____, Nephrology. PHYSICAL EXAMINATION: The patient is unable to give any meaningful information. There is a mass in the left shoulder measuring about 3 x 3 cm with no surrounding cellulitis. Duration of this mass is not known. IMPRESSION: Possible malignant skin lesion. RECOMMENDATIONS: Wide excisional biopsy. The patient has no immediate family and 2 physicians will have to sign for medical necessity. JOB# [id number]
--- NOTE | 2017-07-06 16:56 | Operative Report ---
DATE OF SURGERY: 07/05/2017 PREOPERATIVE DIAGNOSES: 1. Skin lesion, left shoulder, likely malignant. 2. Dementia. 3. Diabetes mellitus. POSTOPERATIVE DIAGNOSES: 1. Skin lesion, left shoulder, likely malignant. 2. Dementia. 3. Diabetes mellitus. OPERATION: Wide excision biopsy, left shoulder mass, size 3 x 1.5 cm. SURGEON: Kiley Albrecht M.D. ANESTHESIA: MAC. ANESTHESIOLOGIST: Dr. Mccallum. ESTIMATED BLOOD LOSS: 2 mL. PROCEDURE: The patient was given IV sedation. Left shoulder was prepped with Betadine and draped in appropriate manner. 1% lidocaine was used to infiltrate around the area of the mass. Wide excision was made, closed with 1 cm margins. Following excision, the specimen was marked on its superior aspect with a suture. The wound was closed with running suture of 4-0 Vicryl subcutaneously and the skin with subcuticular suture of 4-0 Vicryl. Sterile dressing was placed over this. The patient tolerated the procedure well. [facility]# [id number]
[2017-07-06] MEDS ORDERED: Potassium Chloride 20 mEq ER Tab PO ONE (17:00)
[2017-07-07] MEDS: Sodium Chloride 0.9% 1,000 ML IV SCH (01:23)
--- NOTE | 2017-07-07 04:30 | Progress Notes ---
DATE: 07/06/2017 LOCATION: [facility], Room #15, bed B. SUBJECTIVE: The patient is essentially same, tolerating feeding well. No shortness of breath, nausea, vomiting, or diarrhea. OBJECTIVE: VITAL SIGNS: Temperature 97.5, pulse 72, and blood pressure 110/50. Yesterday's intake 550 and today's intake 1120, output not documented. HEART: Regular. LUNGS: Clear. ABDOMEN: Benign. EXTREMITIES: No edema. SIGNIFICANT LABORATORY DATA: Hemoglobin 10.3, sodium 133, potassium 3.1, chloride 108, CO2 20.3, creatinine 1.4, and calcium 8.3. ASSESSMENT: 1. Acute kidney injury, improving and stable. 2. Hypokalemia. 3. Hyponatremia, improving. 4. Anemia. 5. Hypotension, improving. PLAN: KCl rider today. Check BMP in the morning. Continue other treatment. JOB# [id number]
[2017-07-07 06:42] LABS: ANION GAP 8.9 (7.0-16.0); BUN - UREA NITROGEN 13 mg/dL (7-25); CALCIUM SERUM 8.2 mg/dL (8.6-10.3); CARBON DIOXIDE 18.7 mEq/L (21.0-31.0); CHLORIDE 112 mEq/L (98-107); CREATININE - SERUM 1.3 mg/dL (0.7-1.3); GFR AFRICAN-AMERICAN > 60.0 ml/min (>90); GFR NON AFRICAN-AMERICAN 58.3 ml/min; GLUCOSE 107 mg/dL (70-105); POTASSIUM SERUM 3.6 mEq/L (3.5-5.1); SODIUM SERUM 136 mEq/L (136-145)
[2017-07-07] MEDS: INSULIN ASPART, RECOMBINANT 100 UNITS/ML SUBQ SCH ×2 (07:06→12:25)
--- NOTE | 2017-07-07 10:44 | Infectious Disease Prog Note ---
Infectious Disease Subjective - Review of Systems Service Date: 07/07/17 Events since last encounter: Wide excision of the left shoulder lesion perfomed by Dr Cao yesterday. Subjective: There is no new change, no fever. Infectious Disease Objective - Results Result Diagrams: 07/06/17 05:40 07/07/17 06:18 Recent Labs: Laboratory Last Values WBC 11.0 Th/cmm (4.8-10.8) H 07/06/17 05:40 RBC 3.18 Mil/cmm (3.80-5.80) L 07/06/17 05:40 Hgb 10.3 gm/dL (12-16) L 07/06/17 05:40 Hct 30.3 % (41.0-60) L 07/06/17 05:40 MCV 95.2 fl (80-99) 07/06/17 05:40 MCH 32.3 pg (27.0-31.0) H 07/06/17 05:40 MCHC Differential 33.9 pg (28.0-36.0) 07/06/17 05:40 RDW 12.9 % (11.5-20.0) 07/06/17 05:40 Plt Count 181 Th/cmm (150-400) 07/06/17 05:40 MPV 8.9 fl 07/06/17 05:40 Neutrophils % 54.3 % (40.0-80.0) 07/06/17 05:40 Lymphocytes % 31.5 % (20.0-50.0) 07/06/17 05:40 Monocytes % 10.3 % (2.0-10.0) H 07/06/17 05:40 Eosinophils % 3.2 % (0.0-5.0) 07/06/17 05:40 Basophils % 0.7 % (0.0-2.0) 07/06/17 05:40 PT 12.0 SECONDS (9.5-11.5) H 07/06/17 05:40 INR 1.14 (0.5-1.4) 07/06/17 05:40 PTT (Actin FS) 30.3 SECONDS (26.0-38.0) 07/06/17 05:40 Sodium 136 mEq/L (136-145) 07/07/17 06:18 Potassium 3.6 mEq/L (3.5-5.1) 07/07/17 06:18 Chloride 112 mEq/L (98-107) H 07/07/17 06:18 Carbon Dioxide 18.7 mEq/L (21.0-31.0) L 07/07/17 06:18 Anion Gap 8.9 (7.0-16.0) 07/07/17 06:18 BUN 13 mg/dL (7-25) 07/07/17 06:18 Creatinine 1.3 mg/dL (0.7-1.3) 07/07/17 06:18 Est GFR ( Amer) > 60.0 ml/min (>90) 07/07/17 06:18 Est GFR (Non-Af Amer) 58.3 ml/min 07/07/17 06:18 BUN/Creatinine Ratio 10.0 07/07/17 06:18 Glucose 107 mg/dL (70-105) H 07/07/17 06:18 POC Glucose 133 MG/DL (70 - 105) H 07/06/17 20:47 Hemoglobin A1c % 7.4 % (4.0-6.0) H 07/01/17 11:45 Whole Bld Lactic Acid 4.89 mmol/L (0.60-1.99) H* 07/01/17 14:30 Calcium 8.2 mg/dL (8.6-10.3) L 07/07/17 06:18 Phosphorus 2.7 mg/dL (2.5-5.0) 07/03/17 06:05 Magnesium 2.1 mg/dL (1.9-2.7) 07/03/17 06:05 Iron 90 ug/dL (38-169) 07/03/17 06:05 TIBC 169 ug/dL (250-450) L 07/03/17 06:05 Iron Saturation 53 % (15-55) 07/03/17 06:05 Unsaturated IBC 79 ug/dL (111-343) L 07/03/17 06:05 Total Bilirubin 0.5 mg/dL (0.3-1.0) 07/04/17 05:30 AST 53 U/L (13-39) H 07/04/17 05:30 ALT 11 U/L (7-52) 07/04/17 05:30 Alkaline Phosphatase 94 U/L (34-104) 07/04/17 05:30 Creatine Kinase 95 U/L (30-223) 07/01/17 11:45 Troponin I 0.08 ng/mL (0.01-0.05) H* D 07/01/17 11:45 Total Protein 7.5 gm/dL (6.0-8.3) 07/04/17 05:30 Albumin 2.3 gm/dL (4.2-5.5) L 07/04/17 05:30 Globulin 5.2 gm/dL 07/04/17 05:30 Albumin/Globulin Ratio 0.4 (1.0-1.8) L 07/04/17 05:30 TSH 0.87 uIU/ml (0.34-5.60) 07/02/17 05:58 PTH Intact 88 pg/mL (15-65) H 07/03/17 06:05 Urine Source MIDSTREAM 07/01/17 12:00 Urine Color YELLOW 07/01/17 12:00 Urine Clarity HAZY (CLEAR) 07/01/17 12:00 Urine pH 7.5 (4.6 - 8.0) 07/01/17 12:00 Ur Specific [place] 1.010 (1.005-1.030) 07/01/17 12:00 Urine Protein TRACE mg/dL (NEGATIVE) 07/01/17 12:00 Urine Glucose (UA) NEGATIVE mg/dL (NEGATIVE) 07/01/17 12:00 Urine Ketones NEGATIVE mg/dL (NEGATIVE) 07/01/17 12:00 Urine Blood TRACE (NEGATIVE) 07/01/17 12:00 Urine Nitrate NEGATIVE (NEGATIVE) 07/01/17 12:00 Urine Bilirubin NEGATIVE (NEGATIVE) 07/01/17 12:00 Urine Urobilinogen 0.2 E.U./dL (0.2 - 1.0) 07/01/17 12:00 Ur Leukocyte Esterase MODERATE (NEGATIVE) H 07/01/17 12:00 Urine RBC 2-5 /hpf (0-5) H 07/01/17 12:00 Urine WBC 50-100 /hpf (0-5) H 07/01/17 12:00 Ur Epithelial Cells FEW /lpf (FEW) 07/01/17 12:00 Urine Bacteria FEW /hpf (NONE SEEN) 07/01/17 12:00 Stool Occult Blood NEGATIVE (NEGATIVE) 07/07/17 05:33 - Physical Exam Vitals and I&O: Vital Signs Temp 98.2 F 07/07/17 05:00 Pulse 72 07/07/17 05:00 Resp 18 07/07/17 05:00 BP 96/52 07/07/17 05:00 Pulse Ox 97 07/07/17 05:00 Intake & Output 07/06/17 07/07/17 07/07/17 18:59 06:59 18:59 Intake Total 1000 885.5 Balance 1000 885.5 Intake: Intake, IV Amount 1000 885.5 Sodium Chloride 0.9% 1, 1000 885.5 000 ml @ 70 mls/hr IV . [id number] [facility] Rx#:[id number] Active Medications: Current Medications Acetaminophen (Tylenol) 650 mg PO Q4HR PRN PRN Reason: Pain Or Fever above 101 Stop: 08/30/17 22:19 Aspirin (Ecotrin) 81 mg PO DAILY [facility] Stop: 08/31/17 08:59 Last Admin: 07/07/17 09:15 Dose: 81 mg Carbidopa/Levodopa (Sinemet 25mg-100 Mg) 1 tab PO BID [facility] Stop: 08/31/17 16:59 Last Admin: 07/07/17 09:15 Dose: 1 tab Diphenoxylate HCl/Atropine (Lomotil) 1 tab PO Q6H PRN PRN Reason: Diarrhea Stop: 09/02/17 16:33 Sodium Chloride (Nacl 0.9%) 1,000 mls @ 70 mls/hr IV .[id number] [facility] Stop: 08/31/17 13:48 Last Admin: 07/07/17 01:23 Dose: 70 mls/hr Ceftriaxone Sodium 1 gm/ (Dextrose) 50 mls @ 100 mls/hr IV Q24H [facility] Stop: 09/01/17 16:59 Last Admin: 07/06/17 17:15 Dose: 100 mls/hr Insulin Aspart (Novolog) 1 units SUBQ ACHS MICHAEL PRN Reason: Protocol Stop: 08/30/17 16:46 Last Admin: 07/07/17 07:06 Dose: Not Given Lorazepam (Ativan) 1 mg IVP Q4HR PRN; Protocol PRN Reason: Agitation Stop: 09/01/17 11:52 Ondansetron HCl (Zofran) 4 mg IV Q6H PRN PRN Reason: Nausea / Vomiting Stop: 08/30/17 22:19 Sodium Bicarbonate (Sodium Bicarbonate) 650 mg PO BID MICHAEL PRN Reason: Protocol Stop: 09/01/17 16:59 Last Admin: 07/07/17 09:15 Dose: 650 mg General: no acute distress, well developed, well nourished HEENT: atraumatic, normocephalic, PERRLA, EOMI Neck: supple, no thyromegaly Cardiovascular: S1S2, regular Lungs: clear to auscultation bilaterally, clear to percussion Abdomen: soft, no tender, no distended Extremities: no cyanosis, no clubbing, no edema - Procedures Procedures: Procedures Procedure Code Date OTHER GROUP THERAPY 94.44 04/06/14 Infectious Disease Assmt/Plan - Problem List Patient Problems: All Active Problems ABNORMAL LABORATORY RESULTS WBC, BUN (Acute) - Assessment Assessment: 1. UTI. 2. Agitation. 3. Diabetes mellitus type 2. 4. Acute kidney injury versus CK D. 5. Hypertension. 6. Left shouler lesion, excised ? suspect malignancy. - Plan Plan: Continue same treatment. Continue Rocephin, it can be changed to po levaquin 250mg daily for 2 more days. Nutritional Asmnt/Malnutr-PDOC - Dietary Evaluation Malnutrition Findings (Please click <Entered> for more info): Nutritional Asmnt/Malnutrition Start: 07/02/17 11: 28 Text: Status: Complete Freq: Document 07/02/17 11:29 MIRA (Rec: 07/02/17 11:32 MIRA PINTO- [email or web address]) Nutritional Asmnt/Malnutrition Patient General Information Nutritional Screening Consult Diagnosis Acute renal failure Pertinent Medical Hx/Surgical Hx morbid obesity,systolic heart failure, cardiomyopathy Subjective Information Pt sitting up in bed stated to come back tomorrow Current Diet Order/ Nutrition Support CCHO 45g Pertinent Medications novolog, zofran, NS @100ml/hr Pertinent Labs 07/02: Na 137, K 3.3, Cl 108, Co2 23.1, BUN 43, Cr 1.8, Ca 9 .5, phos 3.1, mg 1.8, glucose 100 Nutritional Hx/Data Height 1.75 m Height (Calculated Centimeters) 175.3 Current Weight (lbs) 85.729 kg Weight (Calculated Kilograms) 85.7 Weight (Calculated Grams) 34563.0 Body Mass Index (BMI) 27.8 Weight Status Overweight GI Symptoms GI Symptoms None Last BM none noted Cultural/Ethnic/Mormonism Belief Unknown Usual diet at home unknown Skin Integrity/Comment: emma french 15 Current %PO Fair (50-74%) Estimated Nutritional Goals BEE in Kcals: Using Current wt Calories/Kcals/Kg 30kcals/kg Kcals Calculated 2580kcals/day Protein: Using Current wt Protein g/kg/kg Protein Calculated 86g/day Fluid: ml per MD Nutritional Problem 1. Problem Problem No nutrition diagnosis at this time Intervention/Recommendation Comments Recommend continuing [facility] diet Expected Outcomes/Goals Expected Outcomes/Goals PO intake > 75% of meals
--- NOTE | 2017-07-07 11:39 | General Progress Note ---
Subjective - Review of Systems Service Date: 07/07/17 Events since last encounter: dressing dry may DC, sutures are absorbable, do not need removal Objective - Results Result Diagrams: 07/06/17 05:40 07/07/17 06:18 Recent Labs: Laboratory Last Values WBC 11.0 Th/cmm (4.8-10.8) H 07/06/17 05:40 RBC 3.18 Mil/cmm (3.80-5.80) L 07/06/17 05:40 Hgb 10.3 gm/dL (12-16) L 07/06/17 05:40 Hct 30.3 % (41.0-60) L 07/06/17 05:40 MCV 95.2 fl (80-99) 07/06/17 05:40 MCH 32.3 pg (27.0-31.0) H 07/06/17 05:40 MCHC Differential 33.9 pg (28.0-36.0) 07/06/17 05:40 RDW 12.9 % (11.5-20.0) 07/06/17 05:40 Plt Count 181 Th/cmm (150-400) 07/06/17 05:40 MPV 8.9 fl 07/06/17 05:40 Neutrophils % 54.3 % (40.0-80.0) 07/06/17 05:40 Lymphocytes % 31.5 % (20.0-50.0) 07/06/17 05:40 Monocytes % 10.3 % (2.0-10.0) H 07/06/17 05:40 Eosinophils % 3.2 % (0.0-5.0) 07/06/17 05:40 Basophils % 0.7 % (0.0-2.0) 07/06/17 05:40 PT 12.0 SECONDS (9.5-11.5) H 07/06/17 05:40 INR 1.14 (0.5-1.4) 07/06/17 05:40 PTT (Actin FS) 30.3 SECONDS (26.0-38.0) 07/06/17 05:40 Sodium 136 mEq/L (136-145) 07/07/17 06:18 Potassium 3.6 mEq/L (3.5-5.1) 07/07/17 06:18 Chloride 112 mEq/L (98-107) H 07/07/17 06:18 Carbon Dioxide 18.7 mEq/L (21.0-31.0) L 07/07/17 06:18 Anion Gap 8.9 (7.0-16.0) 07/07/17 06:18 BUN 13 mg/dL (7-25) 07/07/17 06:18 Creatinine 1.3 mg/dL (0.7-1.3) 07/07/17 06:18 Est GFR ( Amer) > 60.0 ml/min (>90) 07/07/17 06:18 Est GFR (Non-Af Amer) 58.3 ml/min 07/07/17 06:18 BUN/Creatinine Ratio 10.0 07/07/17 06:18 Glucose 107 mg/dL (70-105) H 07/07/17 06:18 POC Glucose 133 MG/DL (70 - 105) H 07/06/17 20:47 Hemoglobin A1c % 7.4 % (4.0-6.0) H 07/01/17 11:45 Whole Bld Lactic Acid 4.89 mmol/L (0.60-1.99) H* 07/01/17 14:30 Calcium 8.2 mg/dL (8.6-10.3) L 07/07/17 06:18 Phosphorus 2.7 mg/dL (2.5-5.0) 07/03/17 06:05 Magnesium 2.1 mg/dL (1.9-2.7) 07/03/17 06:05 Iron 90 ug/dL (38-169) 07/03/17 06:05 TIBC 169 ug/dL (250-450) L 07/03/17 06:05 Iron Saturation 53 % (15-55) 07/03/17 06:05 Unsaturated IBC 79 ug/dL (111-343) L 07/03/17 06:05 Total Bilirubin 0.5 mg/dL (0.3-1.0) 07/04/17 05:30 AST 53 U/L (13-39) H 07/04/17 05:30 ALT 11 U/L (7-52) 07/04/17 05:30 Alkaline Phosphatase 94 U/L (34-104) 07/04/17 05:30 Creatine Kinase 95 U/L (30-223) 07/01/17 11:45 Troponin I 0.08 ng/mL (0.01-0.05) H* D 07/01/17 11:45 Total Protein 7.5 gm/dL (6.0-8.3) 07/04/17 05:30 Albumin 2.3 gm/dL (4.2-5.5) L 07/04/17 05:30 Globulin 5.2 gm/dL 07/04/17 05:30 Albumin/Globulin Ratio 0.4 (1.0-1.8) L 07/04/17 05:30 TSH 0.87 uIU/ml (0.34-5.60) 07/02/17 05:58 PTH Intact 88 pg/mL (15-65) H 07/03/17 06:05 Urine Source MIDSTREAM 07/01/17 12:00 Urine Color YELLOW 07/01/17 12:00 Urine Clarity HAZY (CLEAR) 07/01/17 12:00 Urine pH 7.5 (4.6 - 8.0) 07/01/17 12:00 Ur Specific [place] 1.010 (1.005-1.030) 07/01/17 12:00 Urine Protein TRACE mg/dL (NEGATIVE) 07/01/17 12:00 Urine Glucose (UA) NEGATIVE mg/dL (NEGATIVE) 07/01/17 12:00 Urine Ketones NEGATIVE mg/dL (NEGATIVE) 07/01/17 12:00 Urine Blood TRACE (NEGATIVE) 07/01/17 12:00 Urine Nitrate NEGATIVE (NEGATIVE) 07/01/17 12:00 Urine Bilirubin NEGATIVE (NEGATIVE) 07/01/17 12:00 Urine Urobilinogen 0.2 E.U./dL (0.2 - 1.0) 07/01/17 12:00 Ur Leukocyte Esterase MODERATE (NEGATIVE) H 07/01/17 12:00 Urine RBC 2-5 /hpf (0-5) H 07/01/17 12:00 Urine WBC 50-100 /hpf (0-5) H 07/01/17 12:00 Ur Epithelial Cells FEW /lpf (FEW) 07/01/17 12:00 Urine Bacteria FEW /hpf (NONE SEEN) 07/01/17 12:00 Stool Occult Blood NEGATIVE (NEGATIVE) 07/07/17 05:33 - Physical Exam Vitals and I&O: Vital Signs Temp 98.2 F 07/07/17 05:00 Pulse 72 07/07/17 05:00 Resp 18 07/07/17 08:00 BP 96/52 07/07/17 05:00 Pulse Ox 97 07/07/17 05:00 Intake & Output 07/06/17 07/07/17 07/07/17 18:59 06:59 18:59 Intake Total 1000 885.5 Balance 1000 885.5 Weight (lbs) 87.09 kg Intake: Intake, IV Amount 1000 885.5 Sodium Chloride 0.9% 1, 1000 885.5 000 ml @ 70 mls/hr IV . [id number] [facility] Rx#:[id number] Other: Weight Source Bedscale Active Medications: Current Medications Acetaminophen (Tylenol) 650 mg PO Q4HR PRN PRN Reason: Pain Or Fever above 101 Stop: 08/30/17 22:19 Aspirin (Ecotrin) 81 mg PO DAILY [facility] Stop: 08/31/17 08:59 Last Admin: 07/07/17 09:15 Dose: 81 mg Carbidopa/Levodopa (Sinemet 25mg-100 Mg) 1 tab PO BID [facility] Stop: 08/31/17 16:59 Last Admin: 07/07/17 09:15 Dose: 1 tab Diphenoxylate HCl/Atropine (Lomotil) 1 tab PO Q6H PRN PRN Reason: Diarrhea Stop: 09/02/17 16:33 Sodium Chloride (Nacl 0.9%) 1,000 mls @ 70 mls/hr IV .[id number] [facility] Stop: 08/31/17 13:48 Last Admin: 07/07/17 01:23 Dose: 70 mls/hr Ceftriaxone Sodium 1 gm/ (Dextrose) 50 mls @ 100 mls/hr IV Q24H [facility] Stop: 09/01/17 16:59 Last Admin: 07/06/17 17:15 Dose: 100 mls/hr Insulin Aspart (Novolog) 1 units SUBQ ACHS MICHAEL PRN Reason: Protocol Stop: 08/30/17 16:46 Last Admin: 07/07/17 07:06 Dose: Not Given Lorazepam (Ativan) 1 mg IVP Q4HR PRN; Protocol PRN Reason: Agitation Stop: 09/01/17 11:52 Ondansetron HCl (Zofran) 4 mg IV Q6H PRN PRN Reason: Nausea / Vomiting Stop: 08/30/17 22:19 Sodium Bicarbonate (Sodium Bicarbonate) 650 mg PO BID MICHAEL PRN Reason: Protocol Stop: 09/01/17 16:59 Last Admin: 07/07/17 09:15 Dose: 650 mg General: No acute distress Cardiovascular: Regular rate Lungs: Clear to auscultation Abdomen: Soft, no Tender, no Distended - Procedures Procedures: Procedures Procedure Code Date OTHER GROUP THERAPY 94.44 04/06/14 Assessment/Plan - Problem List Patient Problems: All Active Problems ABNORMAL LABORATORY RESULTS WBC, BUN (Acute) Nutritional Asmnt/Malnutr-PDOC - Dietary Evaluation Malnutrition Findings (Please click <Entered> for more info): Nutritional Asmnt/Malnutrition Start: 07/02/17 11: 28 Text: Status: Complete Freq: Document 07/02/17 11:29 MIRA (Rec: 07/02/17 11:32 MIRA PINTO [email or web address]) Nutritional Asmnt/Malnutrition Patient General Information Nutritional Screening Consult Diagnosis Acute renal failure Pertinent Medical Hx/Surgical Hx morbid obesity,systolic heart failure, cardiomyopathy Subjective Information Pt sitting up in bed stated to come back tomorrow Current Diet Order/ Nutrition Support CCHO 45g Pertinent Medications novolog, zofran, NS @100ml/hr Pertinent Labs 07/02: Na 137, K 3.3, Cl 108, Co2 23.1, BUN 43, Cr 1.8, Ca 9 .5, phos 3.1, mg 1.8, glucose 100 Nutritional Hx/Data Height 1.75 m Height (Calculated Centimeters) 175.3 Current Weight (lbs) 85.729 kg Weight (Calculated Kilograms) 85.7 Weight (Calculated Grams) 41031.0 Body Mass Index (BMI) 27.8 Weight Status Overweight GI Symptoms GI Symptoms None Last BM none noted Cultural/Ethnic/Scientology Belief Unknown Usual diet at home unknown Skin Integrity/Comment: emma french 15 Current %PO Fair (50-74%) Estimated Nutritional Goals BEE in Kcals: Using Current wt Calories/Kcals/Kg 30kcals/kg Kcals Calculated 2580kcals/day Protein: Using Current wt Protein g/kg/kg Protein Calculated 86g/day Fluid: ml per MD Nutritional Problem 1. Problem Problem No nutrition diagnosis at this time Intervention/Recommendation Comments [facility] Expected Outcomes/Goals Expected Outcomes/Goals PO intake > 75% of meals
--- NOTE | 2017-07-08 06:46 | Progress Notes ---
DATE: LOCATION: [facility], room #15, bed B. OBJECTIVE: GENERAL: The patient is not in distress. VITAL SIGNS: Temperature 97.4, blood pressure 120/43, pulse 70. Yesterday's intake 1170. Today's intake 1885. HEART: Regular. LUNGS: Good air entry. ABDOMEN: Soft. Bowel sound normal. LABORATORY DATA: Sodium 136, potassium 3.6, chloride 112, CO2 18.7, BUN 13, creatinine 1.3, calcium 8.2. ASSESSMENT: 1. Acute kidney injury, improved and stable. 2. Hyponatremia, improved. 3. Hypokalemia, improved. 4. Hypotension, improved. PLAN: Continue current treatment. The patient has improved significantly. I will sign off this case. Call me val. I thank you again for this . JOB# [id number]
--- NOTE | 2017-07-08 12:53 | Progress Notes ---
DATE: 07/06/2017 SUBJECTIVE: Chart reviewed and the patient interviewed. Also discussed the patient's condition with the staff and reviewed records and labs. The patient is still sedated and calm and he is still most of the time calm, but he is still having episodes of irritability and agitation. Also still needs redirections. The patient also is compliant with taking his medications with no side effect of medications. ASSESSMENT: The patient still needs close monitoring. TREATMENT PLAN: Continue to monitor behavior and condition closely. Also, continue adjusting psychotropic medications and followup. [facility]# [id number]
--- NOTE | 2017-07-08 14:26 | Pathology Report ---
[id number] Collection Date: 07/06/2017 Surgeon: Dr. Jesu Cao Specimen Description: Excision of left upper chest/shoulder mass Gross Description: Received in formalin is an elliptical excision of fischer-ruano skin measuring 4.0 x 2.5 cm, excised to a depth of approximately 1.0 cm. A raised, hyperkeratotic, brownish lesion is seen on the surface of the specimen, measuring up to 2.7 cm in length x 2.0 cm in width. The margins of this excision are inked blue, and sectioning shows a well demarcated superficial, nodular mass with no apparent involvement of the margins of resection. Microscopic Description: The histologic sections show a proliferation of atypical squamous cells with a dense, hyperkeratotic surface, consistent with well differentiated squamous cell carcinoma. Superficial invasion of the dermis is appreciated where the atypical squamous cells form small nests extending into the upper-most layers of the dermis. There is no evidence for tumor at the margins. 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 Comment: This lesion appears to be completely excised. [facility]# [id number]
== END 2017-07-07 16:00 | DRG 853 ==
LOC: ER 11:00 → MSI 14:26 → TELE 18:57
PROVIDERS: ADMIT Family Medicine; ATTEND Family Medicine
PROC: 0JBF0ZZ Excision of Left Upper Arm Subcutaneous Tissue and Fascia, Open Approach (ICD-10-PCS; principal; 2017-07-05)
DX: A41.9 Sepsis, unspecified organism (principal); G93.41 Metabolic encephalopathy; N39.0 Urinary tract infection, site not specified; N17.9 Acute kidney failure, unspecified; I42.8 Other cardiomyopathies; I50.20 Unspecified systolic (congestive) heart failure; I13.0 Hypertensive heart and chronic kidney disease with heart failure and stage 1 through stage 4 chronic kidney disease, or unspecified chronic kidney disease; E87.1 Hypo-osmolality and hyponatremia; E11.22 Type 2 diabetes mellitus with diabetic chronic kidney disease; E86.0 Dehydration; G20 Parkinson's disease; E83.52 Hypercalcemia; E87.6 Hypokalemia; E83.42 Hypomagnesemia; N18.3 Chronic kidney disease, stage 3 (moderate); D64.9 Anemia, unspecified; F29 Unspecified psychosis not due to a substance or known physiological condition; I25.10 Atherosclerotic heart disease of native coronary artery without angina pectoris; R19.7 Diarrhea, unspecified; E66.01 Morbid (severe) obesity due to excess calories; F02.80 Dementia in other diseases classified elsewhere, unspecified severity, without behavioral disturbance, psychotic disturbance, mood disturbance, and anxiety; M75.92 Shoulder lesion, unspecified, left shoulder; Z82.49 Family history of ischemic heart disease and other diseases of the circulatory system; Z95.0 Presence of cardiac pacemaker; Z68.28 Body mass index [BMI] 28.0-28.9, adult; Z79.4 Long term (current) use of insulin; Z79.82 Long term (current) use of aspirin
CPT/HCPCS: 36415-UA; 71045-TC; 76770-TC; 76857-TC; 80048-TC; 80053-TC; 81001-TC; 82270-TC; 82550-TC; 82948-90; 83036-90; 83540-90; 83550-90; 83605; 83735-TC; 83970-90; 84100-TC; 84443-TC; 84484-TC; 85025-TC; 85610-TC; 85730-TC; 87086-90; 93005; 94760; J0696; J1815; J2001; J2060; J2250; J2543; J3010; J3475; J3480; J7030; X6530; Z7610

== ENCOUNTER 2018-05-30 15:17 | Inpatient (IN) | payer MEDICARE, MEDICAID ==
--- NOTE | 2018-05-30 15:38 | ED Physician Chart ---
ED Chief Complaint/HPI - Patient Information Date Seen:: 05/30/18 Time Seen:: 15:25 Chief Complaint:: Agitation History of Present Illness:: onset x 3 days of agitation and aggressive behavior; no report of trauma, SIs, H /As, S/T, neck pain, C/P, SOB, Abd. Pain, or urinary s/s Allergies:: Allergies Allergy/AdvReac Type Severity Reaction Status Date / Time No Known Allergies Allergy Verified 05/30/18 15:33 Historian:: Patient, EMS Review:: Nurse's Note Reviewed, Old Chart Reviewed, EMS run form Reviewed ED Review of Systems - Review of Systems General/Constitutional: No fever, No chills, No weight loss, No weakness, No diaphoresis, No edema, No loss of appetite Skin: No skin lesions, No rash, No bruising Head: No headache, No light-headedness Eyes: No loss of vision, No pain, No diplopia ENT: No earache, No nasal drainage, No sore throat, No tinnitus Neck: No neck pain, No swelling, No thyromegaly, No stiffness, No mass noted Cardio Vascular: No chest pain, No palpitations, No PND, No orthopnea, No edema Pulmonary: No SOB, No cough, No sputum, No wheezing GI: No nausea, No vomiting, No diarrhea, No pain, No melena, No hematochezia, No constipation, No hematemesis G/U: No dysuria, No frequency, No hematuria, No nacturia Musculoskeletal: No bone or joint pain, No back pain, No muscle pain Endocrine: No polyuria, No polydipsia Psychiatric: Prior psych history, Depression, Anxiety, No suicidal ideation, No homicidal ideation, No auditory hallucination, No visual hallucination Hematopoietic: No bruising, No lymphadenopathy Allergic/Immuno: No urticaria, No angioedema Neurological: No syncope, No focal symptoms, No weakness, No paresthesia, No headache, No seizure, No dizziness, Confusion, No vertigo ED Past Medical History - Past Medical History Obtainable: Yes Past Medical History: HTN, DM, CAD, CHF, Dyslipidemia, ESRD, Dementia, Other ( Parkinson's Disease) Family History: Diabetes Melitus, HTN Social History: Non Smoker, No Alcohol, No Drug Use, Single, Care Facility Surgical History: None Psychiatricy History: Depression, Bipolar, Dementia Medication: Reviewed Family Medical History - Family Member Mother History Unknown: Yes Ethnicity: Non- Living Status: Hx Family Cancer: No Hx Family Coronary Artery Disease: No Hx Family Congestive Heart Failure: No Hx Family Hypertension: No Hx Family Stroke: No Hx Family Diabetes: No Hx Family Seizures: No Hx Family Dementia: No Hx Family AIDS: No Hx Family HIV: No Hx Family COPD: No Hx Family Hepatitis: No Hx Family Psychiatric Problems: No Hx Family Tuberculosis: No ED Physical Exam - Physical Examination General/Constitutional: Awake, Well-developed, well-nourished, Alert, No distress, GCS 15, Non-toxic appearing, Ambulatory Head: Atraumatic Eyes: Lids, conjuctiva normal, PERRL, EOMI Skin: Nl inspection, No rash, No skin lesions, No ecchymosis, Well hydrated, No lymphadenopathy ENMT: External ears, nose nl, TM canals nl, Nasal exam nl, Lips, teeth, gums nl , Oropharynx nl, Tonsils nl Neck: Nontender, Full ROM w/o pain, No JVD, No nuchal rigidity, No bruit, No mass, No stridor Other Neck comments:: supple; no meningeal signs; no cervical tenderness Respiratory: Nl effort/Exclusion, Clear to Auscultation, No Wheeze/Rhonchi/Rales Cardio Vascular: No murmur, gallop, rubs, NL S1 S2 Other Cardio Vascular comments:: Irregular Irregular Rhythm GI: No tenderness/rebounding/guarding, No organomegaly, No hernia, Normal BS's, Nondistended, No mass/bruits, No McBurney tenderness Other GI comments:: no pulsatile masses : No CVA tenderness Extremities: No tenderness or effusion, Full ROM, normal strength in all extremities, No edema, Normal digits & nails Neuro/Psych: Alert/oriented, DTR's symmetric, Normal sensory exam, Normal motor strength, Judgement/insight normal, Mood normal, Normal gait, No focal deficits Other Neuro/Psych comments:: + Psychomotor Agitation; no SIs; Mood/Affect: Labile Misc: Normal back, No paraspinal tenderness ED Labs/Radiology/EKG Results - Lab Results Comments:: Reviewed - EKG Interpretations EKG Time:: 15:41 Rate & Rhythm: 61; Atrial Fibrillation Comments:: LVH; non-specific st-t changes; ED Septic Shock - . Is Septic Shock (SBP<90, OR Lactate>4 mmol\L) present?: No ED Reassessment (Disposition) - Reassessment Reassessment Condition:: Improved - Diagnosis Diagnosis:: Agitation; Medical Clearance
[2018-05-30 16:12] LABS: % BASOPHILS 0.9 % (0.0-2.0); % EOSINOPHILS 1.7 % (0.0-5.0); % LYMPHOCYTES 34.3 % (20.0-50.0); % NEUTROPHILS 50.1 % (40.0-80.0); BASOPHILE ABSOLUTE 0.1 Th/cumm (0-0.2); EOSINOPHILE ABSOLUTE 0.2 Th/cmm (0.1-0.4); HEMATOCRIT 34.8 % (41.0-60); HEMOGLOBIN 11.6 gm/dL (12-16); LYMPHOCYTE ABSOLUTE 3.9 Th/cmm (1.5-3.0); MEAN CELL VOLUME 96.7 fl (80-99); MEAN CORPUSCULAR HEMOGLOBIN 32.2 pg (27.0-31.0); MEAN CORPUSCULAR HGB CONC 33.3 pg (28.0-36.0); MEAN PLATELET VOLUME 8.8 fl; MONOCYTE ABSOLUTE 1.5 Th/cmm (0.3-1.0); NEUTROPHILE ABSOLUTE 5.7 Th/cmm (1.8-8.0); PLATELET COUNT 164 Th/cmm (150-400); RED CELL DISTRIBUTION WIDTH 13.4 % (11.5-20.0); WHITE BLOOD COUNT 11.4 Th/cmm (4.8-10.8)
[2018-05-30 16:25] LABS: ALB/GLOB RATIO 0.4 (1.0-1.8); ALBUMIN 2.5 gm/dL (4.2-5.5); ALKALINE PHOSPHATASE 93 U/L (34-104); ANION GAP 12.7 (7.0-16.0); BILIRUBIN,TOTAL 0.5 mg/dL (0.3-1.0); BUN - UREA NITROGEN 36 mg/dL (7-25); CALCIUM SERUM 10.3 mg/dL (8.6-10.3); CARBON DIOXIDE 25.6 mEq/L (21.0-31.0); CHLORIDE 101 mEq/L (98-107); CHOLESTEROL 125 mg/dL (<200); CREATININE - SERUM 1.7 mg/dL (0.7-1.3); GFR AFRICAN-AMERICAN 51.7 ml/min (>90); GFR NON AFRICAN-AMERICAN 42.7 ml/min; GLUCOSE 275 mg/dL (70-105); HDL -HIGH DENSITY LIPOPROTEIN 18 mg/dL (23-92); POTASSIUM SERUM 3.3 mEq/L (3.5-5.1); SGOT 41 U/L (13-39); SGPT/ALT 12 U/L (7-52); SODIUM SERUM 136 mEq/L (136-145); TOTAL PROTEIN,SERUM 8.8 gm/dL (6.0-8.3); TRIGLYCERIDES 216 mg/dL (<150)
[2018-05-30 16:31] LABS: ACETAMINOPHEN < 10.0 ug/mL (10.0-30.0); SALICYLATES (ASPIRIN) < 25.0 mg/L (30.0-100.0)
[2018-05-30 21:36] VITALS: BP 121/58
[2018-05-30] MEDS ORDERED: Diphenoxylate/Atropine 2.5mg Tab PO PRN (22:06)
[2018-05-30] MEDS ORDERED: Dextrose 50% 50 mL Abboject IVP PRN (22:28)
[2018-05-30] MEDS ORDERED: GLUCAGON HCl 1 MG KIT IM PRN (22:28)
[2018-05-30] MEDS: Insulin Glargine 100 units/ml 10ml Vial SUBQ SCH (22:48)
--- NOTE | 2018-05-31 01:13 | History & Physical ---
ADMIT DATE: 05/30/2018 REASON FOR ADMISSION: Psychiatric disorder. HISTORY OF PRESENT ILLNESS: This is a 67-year-old male with an underlying history of nonischemic cardiomyopathy, diabetes with chronic kidney disease III, hypertension, Parkinson's disease, dementia, and mental disorder who lives in a nursing facility and was brought into the emergency room for evaluation of combativeness, agitation, and psychosis. The patient was admitted to [facility] by Dr. Sheffield. During my evaluation, he denies any chest pain or trouble breathing. No headache, no fever, no chills reported. PAST MEDICAL HISTORY: As per HPI. PAST SURGICAL HISTORY: Pacemaker placement in the past. FAMILY HISTORY: Noncontributory. SOCIAL HISTORY: Lives at a nursing facility. No reported alcohol, tobacco or drug use. CURRENT MEDICATIONS: Per medication reconciliation. ALLERGIES: No known drug allergies. REVIEW OF SYSTEMS: As per the 12-point system is negative. PHYSICAL EXAMINATION: VITAL SIGNS: Temperature 97.8, pulse 67, respiratory rate 20, blood pressure ____ room air. HEENT: Unremarkable. HEART: S1 and S2 normal. LUNGS: Clear to auscultation bilaterally. ABDOMEN: Soft, being, nontender. NEUROLOGIC: Awake, but confused. MUSCULOSKELETAL: ____ extremity, bilateral edema, no calf tenderness. AVAILABLE LABORATORY DATA: As noted. ASSESSMENT: 1. Leukocytosis, unclear etiology. 2. Diabetes with chronic kidney disease III. 3. Parkinson's disease. 4. Dementia and behavioral disturbances. 5. Nonischemic cardiomyopathy with pacemaker in place. PLAN: The patient will be admitted to the [facility] Unit. The patient was empirically started on oral antibiotics. A UA ordered. Follow renal functions and ultrasound ordered. Home medication reconciled. Continue basal bolus insulin, monitor blood sugars, and monitor vitals. Consult psychiatrist. The patient's condition was discussed with the nursing staff. [facility]# [id number]
[2018-05-31] MEDS: INSULIN LISPRO 100 UNIT/ML VIAL SUBQ SCH ×2 (06:46→12:00)
[2018-05-31] MEDS: INSULIN LISPRO SLIDING SCALE 100 UNITS/ML UNIT SUBQ SCH ×4 (06:47→21:09)
[2018-05-31] MEDS ORDERED: Potassium Chloride 10 mEq ER Tab PO SCH (09:00)
--- NOTE | 2018-05-31 12:38 | History & Physical ---
ADMIT DATE: 05/31/2018 ADMISSION HISTORY AND PHYSICAL IDENTIFYING INFORMATION: The patient is a 67-year-old male. HISTORY OF PRESENT ILLNESS: The patient is referred from ____ because of agitation. The patient himself was a poor historian though he was somewhat alert. He can participate in meaningful conversation. The patient was combative, agitated prior to his admission, so the patient has already been seen by Dr. Gregorio. PAST PSYCHIATRIC HISTORY: Unobtainable. History of aggression, aggressive behavior. MEDICAL HISTORY: Leukocytosis, diabetes, chronic kidney disease, Parkinson's disease, dementia with behavioral disturbance, and non ischemic cardiomyopathy. ALLERGIES: He has no known drug allergies. MEDICATIONS: The patient has been on Sinemet and insulin. FAMILY AND SOCIAL HISTORY: The patient claims he has been living in a nursing facility. Unable to give much information. MENTAL STATUS EXAMINATION: The patient is appropriately dressed, not well groomed. He is unpredictable. He was alert, but unable to give information. His long or short term memory is poor. He was agitated, aggressive, prior to him coming here. His insight and judgment is impaired. IMPRESSION: Psychosis, not otherwise specified, rule out bipolar disorder. MEDICAL DIAGNOSES: As per Dr. Gregorio. INITIAL TREATMENT PLAN: The patient will be observed, we will medicate as needed. According to his response, we will do group therapy, and milieu therapy. ESTIMATED LENGTH OF STAY: 3-7 days. DISCHARGE CRITERIA: Decreasing agitation, no longer acting out after discharge outpatient treatment. JOB# [id number]
--- NOTE | 2018-05-31 14:34 | Diagnostic Imaging Report ---
Renal ultrasound HISTORY: Abnormal renal function tests The right kidney measures 11.8 x 5.0 x 6.6 cm. There is a subcentimeter sonolucent lesion in the upper pole consistent with a cyst. No hydronephrosis. Slight increased cortical echogenicity. The left kidney is normal in size (11.2 x 5.7 x 6.3 cm). No focal lesions. No hydronephrosis. Slight increased cortical echogenicity. The exam of the urinary bladder demonstrates intraluminal low level echoes in the dependent region. Exact etiology uncertain. Clinical correlation and correlation with urinalysis needed. IMPRESSION: 1. Findings consistent with a small right renal cyst 2. No hydronephrosis 3. Slight increase in renal cortical echogenicity which may reflect a degree of chronic parenchymal disease. Significance should be correlated with renal function tests. 4. Low level intraluminal echoes within the dependent region of the urinary bladder. The findings should be correlated clinically and with urinalysis.
[2018-05-31] MEDS: Insulin Glargine 100 units/ml 10ml Vial SUBQ SCH (21:08)
[2018-05-31] MEDS: Lactulose 10 Gm/15 mL 30mL UDC PO SCH (21:10)
--- NOTE | 2018-05-31 23:02 | General Progress Note ---
Subjective - Review of Systems Service Date: 05/31/18 Subjective: Patient seen and examined doing ok denied any complaints afebrile Objective - Results Result Diagrams: 05/30/18 16:00 05/30/18 16:00 Recent Labs: Laboratory Last Values WBC 11.4 Th/cmm (4.8-10.8) H 05/30/18 16:00 RBC 3.60 Mil/cmm (3.80-5.80) L 05/30/18 16:00 Hgb 11.6 gm/dL (12-16) L 05/30/18 16:00 Hct 34.8 % (41.0-60) L 05/30/18 16:00 MCV 96.7 fl (80-99) 05/30/18 16:00 MCH 32.2 pg (27.0-31.0) H 05/30/18 16:00 MCHC Differential 33.3 pg (28.0-36.0) 05/30/18 16:00 RDW 13.4 % (11.5-20.0) 05/30/18 16:00 Plt Count 164 Th/cmm (150-400) 05/30/18 16:00 MPV 8.8 fl 05/30/18 16:00 Neutrophils % 50.1 % (40.0-80.0) 05/30/18 16:00 Lymphocytes % 34.3 % (20.0-50.0) 05/30/18 16:00 Monocytes % 13.0 % (2.0-10.0) H 05/30/18 16:00 Eosinophils % 1.7 % (0.0-5.0) 05/30/18 16:00 Basophils % 0.9 % (0.0-2.0) 05/30/18 16:00 Sodium 136 mEq/L (136-145) 05/30/18 16:00 Potassium 3.3 mEq/L (3.5-5.1) L 05/30/18 16:00 Chloride 101 mEq/L (98-107) 05/30/18 16:00 Carbon Dioxide 25.6 mEq/L (21.0-31.0) 05/30/18 16:00 Anion Gap 12.7 (7.0-16.0) 05/30/18 16:00 BUN 36 mg/dL (7-25) H 05/30/18 16:00 Creatinine 1.7 mg/dL (0.7-1.3) H 05/30/18 16:00 Est GFR ( Amer) 51.7 ml/min (>90) 05/30/18 16:00 Est GFR (Non-Af Amer) 42.7 ml/min 05/30/18 16:00 BUN/Creatinine Ratio 21.2 05/30/18 16:00 Glucose 275 mg/dL (70-105) H 05/30/18 16:00 POC Glucose 192 MG/DL (70 - 105) H 05/31/18 16:54 Calcium 10.3 mg/dL (8.6-10.3) 05/30/18 16:00 Total Bilirubin 0.5 mg/dL (0.3-1.0) 05/30/18 16:00 AST 41 U/L (13-39) H 05/30/18 16:00 ALT 12 U/L (7-52) 05/30/18 16:00 Alkaline Phosphatase 93 U/L (34-104) 05/30/18 16:00 Troponin I 0.06 ng/mL (0.01-0.05) H D 05/30/18 16:00 Total Protein 8.8 gm/dL (6.0-8.3) H 05/30/18 16:00 Albumin 2.5 gm/dL (4.2-5.5) L 05/30/18 16:00 Globulin 6.3 gm/dL 05/30/18 16:00 Albumin/Globulin Ratio 0.4 (1.0-1.8) L 05/30/18 16:00 Triglycerides 216 mg/dL (<150) H 05/30/18 16:00 Cholesterol 125 mg/dL (<200) 05/30/18 16:00 LDL Cholesterol Direct 84 mg/dL (75-193) 05/30/18 16:00 HDL Cholesterol 18 mg/dL (23-92) L 05/30/18 16:00 TSH 0.55 uIU/ml (0.34-5.60) 05/30/18 16:00 Salicylates < 25.0 mg/L (30.0-100.0) L 05/30/18 16:00 Acetaminophen < 10.0 ug/mL (10.0-30.0) L 05/30/18 16:00 Ethyl Alcohol < 10 mg/dL (0-10) 05/30/18 16:00 - Physical Exam Vitals and I&O: Vital Signs Temp 98.2 F 05/31/18 20:00 Pulse 75 05/31/18 20:00 Resp 20 05/31/18 20:00 BP 144/56 05/31/18 20:00 Pulse Ox 97 05/31/18 20:00 Intake & Output 05/31/18 05/31/18 06/01/18 06:59 18:59 06:59 Intake Total 1300 Balance 1300 Intake: Oral 1300 Other: # Voids 3 2 # Bowel Movements 0 Active Medications: Current Medications Aspirin (Ecotrin) 81 mg PO DAILY [facility] Stop: 07/30/18 08:59 Last Admin: 05/31/18 10:05 Dose: 81 mg Bisacodyl (Dulcolax 10 Mg Supp) 10 mg RC DAILY PRN PRN Reason: IF NO BM IN THREE DAYS Stop: 07/29/18 22:05 Carbidopa/Levodopa (Sinemet 25mg-100 Mg) 1 tab PO BID [facility] [place] Stop: 07/29/18 22:14 Last Admin: 05/31/18 17:38 Dose: 1 tab Dextrose (D50w) 50 ml IVP PRN PRN PRN Reason: Blood Glucose less than 70 Stop: 07/29/18 22:27 Dextrose (Glutose 40%) 18.75 gm PO PRN PRN PRN Reason: Blood Glucose less than 70 Stop: 07/29/18 22:27 Diphenoxylate HCl/Atropine (Lomotil) 1 tab PO Q6H PRN PRN Reason: Diarrhea Stop: 07/29/18 22:05 Furosemide (Lasix) 40 mg PO Q48H [facility] Stop: 07/29/18 22:14 Last Admin: 05/30/18 22:47 Dose: 40 mg Glucagon (Glucagen) 1 mg IM PRN PRN PRN Reason: Blood Glucose less than 70 Stop: 07/29/18 22:27 Insulin Glargine (Lantus Insulin) 40 units SUBQ HS [facility] Stop: 07/29/18 22:59 Last Admin: 05/31/18 21:08 Dose: 40 units Insulin Human Lispro (Humalog Insulin Sliding Scale) 0 units SUBQ ACHS [facility]; Protocol Stop: 07/30/18 07:29 Last Admin: 05/31/18 21:09 Dose: 8 units Lactulose (Cephulac) 20 gm PO HS [facility] Stop: 07/30/18 20:59 Last Admin: 05/31/18 21:10 Dose: 20 gm Levofloxacin (Levaquin) 250 mg PO DAILY [facility] Stop: 07/30/18 08:59 Last Admin: 05/31/18 10:05 Dose: 250 mg Lisinopril (Zestril) 2.5 mg PO DAILY [facility] Stop: 07/30/18 08:59 Last Admin: 05/31/18 10:05 Dose: Not Given Lorazepam (Ativan) 0.5 mg PO Q4HR PRN; Protocol PRN Reason: Anxiety Stop: 06/29/18 23:09 Potassium Chloride (Klor-Con) 10 meq PO DAILY [facility] Stop: 07/31/18 08:59 Sodium Bicarbonate (Sodium Bicarbonate) 650 mg PO BID [facility]; Protocol Stop: 07/29/18 22:14 Last Admin: 05/31/18 17:38 Dose: 650 mg Zolpidem Tartrate (Ambien) 5 mg PO HS PRN PRN Reason: Insomnia Stop: 07/29/18 23:09 Cardiovascular: Regular rate Lungs: Clear to auscultation Abdomen: Soft, no Tender - Procedures Procedures: Procedures Procedure Code Date EXCISION OF L UP ARM SUBCU/FASCIA, OPEN APPROACH [id number] 07/01/17 OTHER GROUP THERAPY 94.44 04/06/14 Assessment/Plan - Assessment Assessment: parkinson's disease DM II with CKD III Systolic heart failure Non ischemic cardiomyopathy - Plan Plan: Follow up labs in am Renal US reviewed Continue BASAL BOLUS insulin Monitor vitals Plan of care discussed with nursing staff
[2018-06-01] MEDS: INSULIN LISPRO SLIDING SCALE 100 UNITS/ML UNIT SUBQ SCH ×3 (07:00→21:19)
[2018-06-01] MEDS: Potassium Chloride 10 mEq ER Tab PO SCH (09:14)
--- NOTE | 2018-06-01 13:43 | Progress Notes ---
DATE: 06/01/2018 Case was discussed with staff of the patient, reviewed records. The patient continues to be confused, demented, unable to carry on a conversation and make safe plan for self-care. He is unpredictable, impulsive, demented, confused with episodes of agitation. He is sleeping better, eating better. No side effects with the medication, no sedation, no nausea and we will continue the patient in group therapy, milieu therapy, adjust medication as needed. [facility]# [id number]
[2018-06-01] MEDS: Insulin Glargine 100 units/ml 10ml Vial SUBQ SCH (21:20)
[2018-06-01] MEDS: Lactulose 10 Gm/15 mL 30mL UDC PO SCH (21:21)
[2018-06-02] MEDS: INSULIN LISPRO SLIDING SCALE 100 UNITS/ML UNIT SUBQ SCH ×4 (06:33→21:46)
[2018-06-02] MEDS: Potassium Chloride 10 mEq ER Tab PO SCH (15:51)
[2018-06-02] MEDS: Lactulose 10 Gm/15 mL 30mL UDC PO SCH (21:16)
[2018-06-02] MEDS: Insulin Glargine 100 units/ml 10ml Vial SUBQ SCH (21:47)
--- NOTE | 2018-06-03 04:42 | Progress Notes ---
DATE: 06/02/2018 SUBJECTIVE: Chart reviewed and the patient interviewed. Also discussed the patient's condition with the staff and reviewed the record and labs. The patient is still anxious and is still in irritable mood. The patient also is still verbally abusive to others. He also still needs lots of redirections with difficulty following directions. He also still has issues with taking medications and staff has to crush medications in order to comply with the medicine. ASSESSMENT: The patient is still aggressive and is still psychotic. TREATMENT PLAN: We will continue to monitor his behavior and his condition closely. Also, we will continue adjusting psychotropic medications and work on behavioral modification. JOB# [id number]
[2018-06-03] MEDS: INSULIN LISPRO SLIDING SCALE 100 UNITS/ML UNIT SUBQ SCH ×4 (06:52→21:17)
[2018-06-03] MEDS: Potassium Chloride 10 mEq ER Tab PO SCH (09:30)
[2018-06-03] MEDS: Lactulose 10 Gm/15 mL 30mL UDC PO SCH (21:03)
[2018-06-03] MEDS: Insulin Glargine 100 units/ml 10ml Vial SUBQ SCH (21:17)
--- NOTE | 2018-06-04 04:29 | Progress Notes ---
DATE: 06/03/2018 FOLLOWUP PROGRESS NOTE PROGRESS ON THE UNIT: Case was discussed with staff of the patient, reviewed records. The patient was acting out this morning. Dr. Drew ordered him to have emergency medication. He continues to be irritable. He continues to be verbally abusive to the staff and others, needing a lot of redirection. He has been compliant with medication with help of the staff. No side effects to the medication, no sedation, no nausea, no extrapyramidal symptoms. Dr. Drew initiated the patient on Risperdal this morning 1.5 mg twice a day. We will continue to work with the patient in group therapy and milieu therapy, adjust the medication as needed. JOB# [id number]
[2018-06-04] MEDS: INSULIN LISPRO SLIDING SCALE 100 UNITS/ML UNIT SUBQ SCH ×3 (06:47→20:30)
[2018-06-04] MEDS: Potassium Chloride 10 mEq ER Tab PO SCH (09:30)
--- NOTE | 2018-06-04 14:14 | General Progress Note ---
Subjective - Review of Systems Service Date: 06/03/18 Subjective: Patient seen and examined doing ok denied any complaints afebrile Objective - Results Result Diagrams: 05/30/18 16:00 05/30/18 16:00 Recent Labs: Laboratory Last Values WBC 11.4 Th/cmm (4.8-10.8) H 05/30/18 16:00 RBC 3.60 Mil/cmm (3.80-5.80) L 05/30/18 16:00 Hgb 11.6 gm/dL (12-16) L 05/30/18 16:00 Hct 34.8 % (41.0-60) L 05/30/18 16:00 MCV 96.7 fl (80-99) 05/30/18 16:00 MCH 32.2 pg (27.0-31.0) H 05/30/18 16:00 MCHC Differential 33.3 pg (28.0-36.0) 05/30/18 16:00 RDW 13.4 % (11.5-20.0) 05/30/18 16:00 Plt Count 164 Th/cmm (150-400) 05/30/18 16:00 MPV 8.8 fl 05/30/18 16:00 Neutrophils % 50.1 % (40.0-80.0) 05/30/18 16:00 Lymphocytes % 34.3 % (20.0-50.0) 05/30/18 16:00 Monocytes % 13.0 % (2.0-10.0) H 05/30/18 16:00 Eosinophils % 1.7 % (0.0-5.0) 05/30/18 16:00 Basophils % 0.9 % (0.0-2.0) 05/30/18 16:00 Sodium 136 mEq/L (136-145) 05/30/18 16:00 Potassium 3.3 mEq/L (3.5-5.1) L 05/30/18 16:00 Chloride 101 mEq/L (98-107) 05/30/18 16:00 Carbon Dioxide 25.6 mEq/L (21.0-31.0) 05/30/18 16:00 Anion Gap 12.7 (7.0-16.0) 05/30/18 16:00 BUN 36 mg/dL (7-25) H 05/30/18 16:00 Creatinine 1.7 mg/dL (0.7-1.3) H 05/30/18 16:00 Est GFR ( Amer) 51.7 ml/min (>90) 05/30/18 16:00 Est GFR (Non-Af Amer) 42.7 ml/min 05/30/18 16:00 BUN/Creatinine Ratio 21.2 05/30/18 16:00 Glucose 275 mg/dL (70-105) H 05/30/18 16:00 POC Glucose 167 MG/DL (70 - 105) H 06/04/18 06:14 Calcium 10.3 mg/dL (8.6-10.3) 05/30/18 16:00 Total Bilirubin 0.5 mg/dL (0.3-1.0) 05/30/18 16:00 AST 41 U/L (13-39) H 05/30/18 16:00 ALT 12 U/L (7-52) 05/30/18 16:00 Alkaline Phosphatase 93 U/L (34-104) 05/30/18 16:00 Troponin I 0.06 ng/mL (0.01-0.05) H D 05/30/18 16:00 Total Protein 8.8 gm/dL (6.0-8.3) H 05/30/18 16:00 Albumin 2.5 gm/dL (4.2-5.5) L 05/30/18 16:00 Globulin 6.3 gm/dL 05/30/18 16:00 Albumin/Globulin Ratio 0.4 (1.0-1.8) L 05/30/18 16:00 Triglycerides 216 mg/dL (<150) H 05/30/18 16:00 Cholesterol 125 mg/dL (<200) 05/30/18 16:00 LDL Cholesterol Direct 84 mg/dL (75-193) 05/30/18 16:00 HDL Cholesterol 18 mg/dL (23-92) L 05/30/18 16:00 TSH 0.55 uIU/ml (0.34-5.60) 05/30/18 16:00 Salicylates < 25.0 mg/L (30.0-100.0) L 05/30/18 16:00 Acetaminophen < 10.0 ug/mL (10.0-30.0) L 05/30/18 16:00 Ethyl Alcohol < 10 mg/dL (0-10) 05/30/18 16:00 RPR NONREACTIVE (NONREACTIVE) 05/30/18 16:00 - Physical Exam Vitals and I&O: Vital Signs Temp 98.3 F 06/04/18 06:21 Pulse 68 06/04/18 06:21 Resp 18 06/04/18 06:21 BP 105/61 06/04/18 06:21 Pulse Ox 98 06/04/18 06:21 Intake & Output 06/03/18 06/04/18 06/04/18 18:59 06:59 18:59 Intake Total 960 120 Balance 960 120 Intake: Oral 960 120 Other: # Voids 3 3 # Bowel Movements 1 Active Medications: Current Medications Aspirin (Ecotrin) 81 mg PO DAILY [facility] Stop: 07/30/18 08:59 Last Admin: 06/04/18 09:30 Dose: 81 mg Bisacodyl (Dulcolax 10 Mg Supp) 10 mg RC DAILY PRN PRN Reason: IF NO BM IN THREE DAYS Stop: 07/29/18 22:05 Carbidopa/Levodopa (Sinemet 25mg-100 Mg) 1 tab PO BID [facility] Stop: 07/29/18 22:14 Last Admin: 06/04/18 09:30 Dose: 1 tab Dextrose (D50w) 50 ml IVP PRN PRN PRN Reason: Blood Glucose less than 70 Stop: 07/29/18 22:27 Dextrose (Glutose 40%) 18.75 gm PO PRN PRN PRN Reason: Blood Glucose less than 70 Stop: 07/29/18 22:27 Diphenoxylate HCl/Atropine (Lomotil) 1 tab PO Q6H PRN PRN Reason: Diarrhea Stop: 07/29/18 22:05 Furosemide (Lasix) 40 mg PO Q48H [facility] Stop: 07/29/18 22:14 Last Admin: 06/03/18 21:49 Dose: 40 mg Glucagon (Glucagen) 1 mg IM PRN PRN PRN Reason: Blood Glucose less than 70 Stop: 07/29/18 22:27 Insulin Glargine (Lantus Insulin) 40 units SUBQ HS [facility] Stop: 07/29/18 22:59 Last Admin: 06/03/18 21:17 Dose: 40 units Insulin Human Lispro (Humalog Insulin Sliding Scale) 0 units SUBQ ACHS MICHAEL; Protocol Stop: 07/30/18 07:29 Last Admin: 06/04/18 14:06 Dose: Not Given Lactulose (Cephulac) 20 gm PO HS MICHAEL Stop: 07/30/18 20:59 Last Admin: 06/03/18 21:03 Dose: 20 gm Levofloxacin (Levaquin) 250 mg PO DAILY MICHAEL Stop: 07/30/18 08:59 Last Admin: 06/04/18 09:30 Dose: 250 mg Lisinopril (Zestril) 2.5 mg PO DAILY MICHAEL Stop: 07/30/18 08:59 Last Admin: 06/04/18 09:31 Dose: Not Given Lorazepam (Ativan) 0.5 mg PO Q4HR PRN; Protocol PRN Reason: Anxiety Stop: 06/29/18 23:09 Last Admin: 06/01/18 17:51 Dose: 0.5 mg Potassium Chloride (Klor-Con) 10 meq PO DAILY MICHAEL Stop: 07/31/18 08:59 Last Admin: 06/04/18 09:30 Dose: 10 meq Risperidone (Risperdal) 0.5 mg PO BID MICHAEL; Protocol Stop: 08/02/18 08:59 Last Admin: 06/04/18 09:30 Dose: 0.5 mg Sodium Bicarbonate (Sodium Bicarbonate) 650 mg PO BID MICHAEL; Protocol Stop: 07/29/18 22:14 Last Admin: 06/04/18 09:30 Dose: 650 mg Zolpidem Tartrate (Ambien) 5 mg PO HS PRN PRN Reason: Insomnia Stop: 07/29/18 23:09 General: No acute distress Cardiovascular: Regular rate Lungs: Clear to auscultation Abdomen: Soft, no Tender - Procedures Procedures: Procedures Procedure Code Date EXCISION OF L UP ARM SUBCU/FASCIA, OPEN APPROACH [id number] 07/01/17 OTHER GROUP THERAPY 94.44 04/06/14 Assessment/Plan - Assessment Assessment: parkinson's disease DM II with CKD III Systolic heart failure Non ischemic cardiomyopathy - Plan Plan: Medication reviewed Continue BASAL BOLUS insulin Monitor vitals Plan of care discussed with nursing staff Nutritional Asmnt/Malnutr-PDOC - Dietary Evaluation Malnutrition Findings (Please click <Entered> for more info): Nutritional Asmnt/Malnutrition Start: 06/01/18 13: 52 Text: Status: Complete Freq: Protocol: Document 06/01/18 13:52 HEATHERCHON (Rec: 06/01/18 14:09 [email or web address]) Nutritional Asmnt/Malnutrition Patient General Information Nutritional Screening High Risk Diagnosis psychosis Pertinent Medical Hx/Surgical Hx leukocytosis, DM, CKD, parkinson, dementia, non ischemci cardiomyopathy Subjective Information Pt seen sleeping in bed at time of visit. Glucose 275 at admission noted. Per EMR, PO intake 25-75%. Current Diet Order/ Nutrition Support NCS, cardiac, ASHVIN, pureed Pertinent Medications lasix, lantus, humalog, levaquin, kcl, sodium bicarbonate Pertinent Labs 05/31-06/01 POC 171-203 05/30 K 3.3, BUN 36, Cr 1.7, Glucose 275, POC 207, alb 2.5 Nutritional Hx/Data Height 1.83 m Height (Calculated Centimeters) 182.9 Current Weight (lbs) 80.739 kg Weight (Calculated Kilograms) 80.7 Weight (Calculated Grams) 54531.4 [place] Body Weight 178 Body Mass Index (BMI) 24.1 Weight Status Approriate GI Symptoms GI Symptoms None Last BM / Difficult in: None Skin Integrity/Comment: intact Current %PO Good (75-100%) Estimated Nutritional Goals BEE in Kcals: Using Current wt Calories/Kcals/Kg 25-30 Kcals Calculated 6162-2585 Protein: Using Current wt Protein g/k.7-0.8 Protein Calculated 57-65 Fluid: ml 2024-2430ml (1ml/kcal) Nutritional Problem 1. Problem Problem altered nutrition related labs Etiology hyperglycemia, renal dysfunction Signs/Symptoms: K 3.3, BUN 36, Cr 1.7, Glucose 275, POC 171-207 Malnutrition Alert Is there a minimum of two criteria No selected? Query Text:Check all the applicable criteria. A minimum of two criteria are recommended for diagnosis of either severe or non-severe malnutrition. Malnutrition Related to Morbid Obesity Malnutrition related to morbid obesity No Intervention/Recommendation Comments 1. Continue with NCS, cardiac, ASHVIN diet as ordered. Limit protein to 60g d/t CKD and elevated BUN/Cr. will attempt to provide nutrition education when pt available. 2. Monitor PO intake, wt, labs and skin integrity 3. F/U as moderate risk in 3-5 days. Expected Outcomes/Goals Expected Outcomes/Goals 1. PO intake to meet at least 75% of nutritional needs. 2. Wt stability, skin to remain intact, labs to approach WNL.
--- NOTE | 2018-06-04 14:18 | General Progress Note ---
Subjective - Review of Systems Service Date: 06/04/18 Subjective: Patient seen and examined more calm denied chest pain or breathing issue Objective - Results Result Diagrams: 05/30/18 16:00 05/30/18 16:00 Recent Labs: Laboratory Last Values WBC 11.4 Th/cmm (4.8-10.8) H 05/30/18 16:00 RBC 3.60 Mil/cmm (3.80-5.80) L 05/30/18 16:00 Hgb 11.6 gm/dL (12-16) L 05/30/18 16:00 Hct 34.8 % (41.0-60) L 05/30/18 16:00 MCV 96.7 fl (80-99) 05/30/18 16:00 MCH 32.2 pg (27.0-31.0) H 05/30/18 16:00 MCHC Differential 33.3 pg (28.0-36.0) 05/30/18 16:00 RDW 13.4 % (11.5-20.0) 05/30/18 16:00 Plt Count 164 Th/cmm (150-400) 05/30/18 16:00 MPV 8.8 fl 05/30/18 16:00 Neutrophils % 50.1 % (40.0-80.0) 05/30/18 16:00 Lymphocytes % 34.3 % (20.0-50.0) 05/30/18 16:00 Monocytes % 13.0 % (2.0-10.0) H 05/30/18 16:00 Eosinophils % 1.7 % (0.0-5.0) 05/30/18 16:00 Basophils % 0.9 % (0.0-2.0) 05/30/18 16:00 Sodium 136 mEq/L (136-145) 05/30/18 16:00 Potassium 3.3 mEq/L (3.5-5.1) L 05/30/18 16:00 Chloride 101 mEq/L (98-107) 05/30/18 16:00 Carbon Dioxide 25.6 mEq/L (21.0-31.0) 05/30/18 16:00 Anion Gap 12.7 (7.0-16.0) 05/30/18 16:00 BUN 36 mg/dL (7-25) H 05/30/18 16:00 Creatinine 1.7 mg/dL (0.7-1.3) H 05/30/18 16:00 Est GFR ( Amer) 51.7 ml/min (>90) 05/30/18 16:00 Est GFR (Non-Af Amer) 42.7 ml/min 05/30/18 16:00 BUN/Creatinine Ratio 21.2 05/30/18 16:00 Glucose 275 mg/dL (70-105) H 05/30/18 16:00 POC Glucose 167 MG/DL (70 - 105) H 06/04/18 06:14 Calcium 10.3 mg/dL (8.6-10.3) 05/30/18 16:00 Total Bilirubin 0.5 mg/dL (0.3-1.0) 05/30/18 16:00 AST 41 U/L (13-39) H 05/30/18 16:00 ALT 12 U/L (7-52) 05/30/18 16:00 Alkaline Phosphatase 93 U/L (34-104) 05/30/18 16:00 Troponin I 0.06 ng/mL (0.01-0.05) H D 05/30/18 16:00 Total Protein 8.8 gm/dL (6.0-8.3) H 05/30/18 16:00 Albumin 2.5 gm/dL (4.2-5.5) L 05/30/18 16:00 Globulin 6.3 gm/dL 05/30/18 16:00 Albumin/Globulin Ratio 0.4 (1.0-1.8) L 05/30/18 16:00 Triglycerides 216 mg/dL (<150) H 05/30/18 16:00 Cholesterol 125 mg/dL (<200) 05/30/18 16:00 LDL Cholesterol Direct 84 mg/dL (75-193) 05/30/18 16:00 HDL Cholesterol 18 mg/dL (23-92) L 05/30/18 16:00 TSH 0.55 uIU/ml (0.34-5.60) 05/30/18 16:00 Salicylates < 25.0 mg/L (30.0-100.0) L 05/30/18 16:00 Acetaminophen < 10.0 ug/mL (10.0-30.0) L 05/30/18 16:00 Ethyl Alcohol < 10 mg/dL (0-10) 05/30/18 16:00 RPR NONREACTIVE (NONREACTIVE) 05/30/18 16:00 - Physical Exam Vitals and I&O: Vital Signs Temp 98.3 F 06/04/18 06:21 Pulse 68 06/04/18 06:21 Resp 18 06/04/18 06:21 BP 105/61 06/04/18 06:21 Pulse Ox 98 06/04/18 06:21 Intake & Output 06/03/18 06/04/18 06/04/18 18:59 06:59 18:59 Intake Total 960 120 Balance 960 120 Intake: Oral 960 120 Other: # Voids 3 3 # Bowel Movements 1 Active Medications: Current Medications Aspirin (Ecotrin) 81 mg PO DAILY [facility] Stop: 07/30/18 08:59 Last Admin: 06/04/18 09:30 Dose: 81 mg Bisacodyl (Dulcolax 10 Mg Supp) 10 mg RC DAILY PRN PRN Reason: IF NO BM IN THREE DAYS Stop: 07/29/18 22:05 Carbidopa/Levodopa (Sinemet 25mg-100 Mg) 1 tab PO BID [facility] Stop: 07/29/18 22:14 Last Admin: 06/04/18 09:30 Dose: 1 tab Dextrose (D50w) 50 ml IVP PRN PRN PRN Reason: Blood Glucose less than 70 Stop: 07/29/18 22:27 Dextrose (Glutose 40%) 18.75 gm PO PRN PRN PRN Reason: Blood Glucose less than 70 Stop: 07/29/18 22:27 Diphenoxylate HCl/Atropine (Lomotil) 1 tab PO Q6H PRN PRN Reason: Diarrhea Stop: 07/29/18 22:05 Furosemide (Lasix) 40 mg PO Q48H [facility] Stop: 07/29/18 22:14 Last Admin: 06/03/18 21:49 Dose: 40 mg Glucagon (Glucagen) 1 mg IM PRN PRN PRN Reason: Blood Glucose less than 70 Stop: 07/29/18 22:27 Insulin Glargine (Lantus Insulin) 40 units SUBQ HS [facility] Stop: 07/29/18 22:59 Last Admin: 06/03/18 21:17 Dose: 40 units Insulin Human Lispro (Humalog Insulin Sliding Scale) 0 units SUBQ ACHS MICHAEL; Protocol Stop: 07/30/18 07:29 Last Admin: 06/04/18 14:06 Dose: Not Given Lactulose (Cephulac) 20 gm PO HS MICHAEL Stop: 07/30/18 20:59 Last Admin: 06/03/18 21:03 Dose: 20 gm Levofloxacin (Levaquin) 250 mg PO DAILY MICHAEL Stop: 07/30/18 08:59 Last Admin: 06/04/18 09:30 Dose: 250 mg Lisinopril (Zestril) 2.5 mg PO DAILY MICHAEL Stop: 07/30/18 08:59 Last Admin: 06/04/18 09:31 Dose: Not Given Lorazepam (Ativan) 0.5 mg PO Q4HR PRN; Protocol PRN Reason: Anxiety Stop: 06/29/18 23:09 Last Admin: 06/01/18 17:51 Dose: 0.5 mg Potassium Chloride (Klor-Con) 10 meq PO DAILY MICHAEL Stop: 07/31/18 08:59 Last Admin: 06/04/18 09:30 Dose: 10 meq Risperidone (Risperdal) 0.5 mg PO BID MICHAEL; Protocol Stop: 08/02/18 08:59 Last Admin: 06/04/18 09:30 Dose: 0.5 mg Sodium Bicarbonate (Sodium Bicarbonate) 650 mg PO BID MICHAEL; Protocol Stop: 07/29/18 22:14 Last Admin: 06/04/18 09:30 Dose: 650 mg Zolpidem Tartrate (Ambien) 5 mg PO HS PRN PRN Reason: Insomnia Stop: 07/29/18 23:09 General: No acute distress Cardiovascular: Regular rate Lungs: Clear to auscultation Abdomen: Soft, no Tender - Procedures Procedures: Procedures Procedure Code Date EXCISION OF L UP ARM SUBCU/FASCIA, OPEN APPROACH [id number] 07/01/17 OTHER GROUP THERAPY 94.44 04/06/14 Assessment/Plan - Assessment Assessment: parkinson's disease DM II with CKD III Systolic heart failure Non ischemic cardiomyopathy - Plan Plan: Medication reviewed Continue BASAL BOLUS insulin Blood sugar stable Monitor vitals Plan of care discussed with nursing staff Nutritional Asmnt/Malnutr-PDOC - Dietary Evaluation Malnutrition Findings (Please click <Entered> for more info): Nutritional Asmnt/Malnutrition Start: 06/01/18 13: 52 Text: Status: Complete Freq: Protocol: Document 06/01/18 13:52 HEATHERCHON (Rec: 06/01/18 14:09 [email or web address]) Nutritional Asmnt/Malnutrition Patient General Information Nutritional Screening High Risk Diagnosis psychosis Pertinent Medical Hx/Surgical Hx leukocytosis, DM, CKD, parkinson, dementia, non ischemci cardiomyopathy Subjective Information Pt seen sleeping in bed at time of visit. Glucose 275 at admission noted. Per EMR, PO intake 25-75%. Current Diet Order/ Nutrition Support NCS, cardiac, ASHVIN, pureed Pertinent Medications lasix, lantus, humalog, levaquin, kcl, sodium bicarbonate Pertinent Labs 05/31-06/01 POC 171-203 05/30 K 3.3, BUN 36, Cr 1.7, Glucose 275, POC 207, alb 2.5 Nutritional Hx/Data Height 1.83 m Height (Calculated Centimeters) 182.9 Current Weight (lbs) 80.739 kg Weight (Calculated Kilograms) 80.7 Weight (Calculated Grams) 34811.4 [place] Body Weight 178 Body Mass Index (BMI) 24.1 Weight Status Approriate GI Symptoms GI Symptoms None Last BM / Difficult in: None Skin Integrity/Comment: intact Current %PO Good (75-100%) Estimated Nutritional Goals BEE in Kcals: Using Current wt Calories/Kcals/Kg 25-30 Kcals Calculated 8753-0199 Protein: Using Current wt Protein g/k.7-0.8 Protein Calculated 57-65 Fluid: ml 2024-243ml (1ml/kcal) Nutritional Problem 1. Problem Problem altered nutrition related labs Etiology hyperglycemia, renal dysfunction Signs/Symptoms: K 3.3, BUN 36, Cr 1.7, Glucose 275, POC 171-207 Malnutrition Alert Is there a minimum of two criteria No selected? Query Text:Check all the applicable criteria. A minimum of two criteria are recommended for diagnosis of either severe or non-severe malnutrition. Malnutrition Related to Morbid Obesity Malnutrition related to morbid obesity No Intervention/Recommendation Comments 1. Continue with NCS, cardiac, ASHVIN diet as ordered. Limit protein to 60g d/t CKD and elevated BUN/Cr. will attempt to provide nutrition education when pt available. 2. Monitor PO intake, wt, labs and skin integrity 3. F/U as moderate risk in 3-5 days. Expected Outcomes/Goals Expected Outcomes/Goals 1. PO intake to meet at least 75% of nutritional needs. 2. Wt stability, skin to remain intact, labs to approach WNL.
[2018-06-04] MEDS: Lactulose 10 Gm/15 mL 30mL UDC PO SCH (20:28)
[2018-06-04] MEDS: Insulin Glargine 100 units/ml 10ml Vial SUBQ SCH (20:31)
--- NOTE | 2018-06-05 03:04 | Progress Notes ---
DATE: 06/04/2018 SUBJECTIVE: Case was discussed with staff of the patient, reviewed records. The patient is a bit calmer today. He is sleeping better, eating better with episodes of irritability when he is awake. He had to be medicated yesterday. He continues to be unpredictable, impulsive. He was started on Risperdal. He is compliant with the medication with no side effects, no sedation, no nausea and no extrapyramidal symptoms. We will continue to work with the patient in group therapy, milieu therapy, adjust medication as needed. JOB# [id number]
[2018-06-05] MEDS: INSULIN LISPRO SLIDING SCALE 100 UNITS/ML UNIT SUBQ SCH ×5 (06:41→20:46)
[2018-06-05] MEDS: Potassium Chloride 10 mEq ER Tab PO SCH (12:13)
[2018-06-05] MEDS: Lactulose 10 Gm/15 mL 30mL UDC PO SCH (20:44)
[2018-06-05] MEDS: Insulin Glargine 100 units/ml 10ml Vial SUBQ SCH (20:44)
--- NOTE | 2018-06-06 00:25 | Progress Notes ---
DATE: 06/05/2018 Case was discussed with staff of the patient, reviewed records. The patient continues to be easily agitated, confused. Continues to have poor insight. Continues to be unable to make safe plan for self-care, unpredictable, impulsive, needing redirection, demented, confused. No side effects with the medication, no sedation, no nausea, no extrapyramidal symptoms. We will continue to work with the patient in group therapy, milieu therapy, adjust medication as needed. JOB# [id number]
[2018-06-06] MEDS: INSULIN LISPRO SLIDING SCALE 100 UNITS/ML UNIT SUBQ SCH ×4 (06:53→20:34)
[2018-06-06] MEDS: Potassium Chloride 10 mEq ER Tab PO SCH (08:52)
[2018-06-06] MEDS: Lactulose 10 Gm/15 mL 30mL UDC PO SCH (20:34)
[2018-06-06] MEDS: Insulin Glargine 100 units/ml 10ml Vial SUBQ SCH (20:35)
--- NOTE | 2018-06-07 00:25 | Progress Notes ---
DATE: 06/06/2018 Case was discussed with staff of the patient, reviewed records. The patient continues to be unpredictable, impulsive, needing more redirection. Continues to have poor insight. Unable to make safe plan for self-care, getting easily agitated. He has been sleeping better, eating better. No side effects to the medication, no sedation, no nausea and no extrapyramidal symptoms and we will continue to work with the patient in group therapy, milieu therapy and adjust the medications as needed. JOB# [id number]
[2018-06-07] MEDS: INSULIN LISPRO SLIDING SCALE 100 UNITS/ML UNIT SUBQ SCH ×4 (07:01→20:29)
[2018-06-07 14:15] LABS: % BASOPHILS 1.2 % (0.0-2.0); % EOSINOPHILS 2.2 % (0.0-5.0); % MONOCYTES 13.1 % (2.0-10.0); % NEUTROPHILS 44.5 % (40.0-80.0); BASOPHILE ABSOLUTE 0.1 Th/cumm (0-0.2); EOSINOPHILE ABSOLUTE 0.2 Th/cmm (0.1-0.4); HEMATOCRIT 34.9 % (41.0-60); HEMOGLOBIN 11.9 gm/dL (12-16); LYMPHOCYTE ABSOLUTE 2.8 Th/cmm (1.5-3.0); MEAN CELL VOLUME 95.3 fl (80-99); MEAN CORPUSCULAR HEMOGLOBIN 32.6 pg (27.0-31.0); MEAN CORPUSCULAR HGB CONC 34.2 pg (28.0-36.0); MEAN PLATELET VOLUME 8.9 fl; NEUTROPHILE ABSOLUTE 3.2 Th/cmm (1.8-8.0); PLATELET COUNT 164 Th/cmm (150-400); RED BLOOD COUNT 3.66 Mil/cmm (3.80-5.80); RED CELL DISTRIBUTION WIDTH 13.4 % (11.5-20.0); WHITE BLOOD COUNT 7.3 Th/cmm (4.8-10.8)
[2018-06-07] MEDS: Potassium Chloride 10 mEq ER Tab PO SCH (17:34)
[2018-06-07] MEDS: Lactulose 10 Gm/15 mL 30mL UDC PO SCH (20:28)
[2018-06-07] MEDS: Insulin Glargine 100 units/ml 10ml Vial SUBQ SCH (20:29)
--- NOTE | 2018-06-07 22:27 | General Progress Note ---
Subjective - Review of Systems Service Date: 06/07/18 Subjective: Patient seen and examined no new concern noted Objective - Results Result Diagrams: 06/07/18 14:10 05/30/18 16:00 Recent Labs: Laboratory Last Values WBC 7.3 Th/cmm (4.8-10.8) 06/07/18 14:10 RBC 3.66 Mil/cmm (3.80-5.80) L 06/07/18 14:10 Hgb 11.9 gm/dL (12-16) L 06/07/18 14:10 Hct 34.9 % (41.0-60) L 06/07/18 14:10 MCV 95.3 fl (80-99) 06/07/18 14:10 MCH 32.6 pg (27.0-31.0) H 06/07/18 14:10 MCHC Differential 34.2 pg (28.0-36.0) 06/07/18 14:10 RDW 13.4 % (11.5-20.0) 06/07/18 14:10 Plt Count 164 Th/cmm (150-400) 06/07/18 14:10 MPV 8.9 fl 06/07/18 14:10 Neutrophils % 44.5 % (40.0-80.0) 06/07/18 14:10 Lymphocytes % 39.0 % (20.0-50.0) 06/07/18 14:10 Monocytes % 13.1 % (2.0-10.0) H 06/07/18 14:10 Eosinophils % 2.2 % (0.0-5.0) 06/07/18 14:10 Basophils % 1.2 % (0.0-2.0) 06/07/18 14:10 Sodium 136 mEq/L (136-145) 05/30/18 16:00 Potassium 3.3 mEq/L (3.5-5.1) L 05/30/18 16:00 Chloride 101 mEq/L (98-107) 05/30/18 16:00 Carbon Dioxide 25.6 mEq/L (21.0-31.0) 05/30/18 16:00 Anion Gap 12.7 (7.0-16.0) 05/30/18 16:00 BUN 36 mg/dL (7-25) H 05/30/18 16:00 Creatinine 1.7 mg/dL (0.7-1.3) H 05/30/18 16:00 Est GFR ( Amer) 51.7 ml/min (>90) 05/30/18 16:00 Est GFR (Non-Af Amer) 42.7 ml/min 05/30/18 16:00 BUN/Creatinine Ratio 21.2 05/30/18 16:00 Glucose 275 mg/dL (70-105) H 05/30/18 16:00 POC Glucose 167 MG/DL (70 - 105) H 06/04/18 06:14 Calcium 10.3 mg/dL (8.6-10.3) 05/30/18 16:00 Total Bilirubin 0.5 mg/dL (0.3-1.0) 05/30/18 16:00 AST 41 U/L (13-39) H 05/30/18 16:00 ALT 12 U/L (7-52) 05/30/18 16:00 Alkaline Phosphatase 93 U/L (34-104) 05/30/18 16:00 Troponin I 0.06 ng/mL (0.01-0.05) H D 05/30/18 16:00 Total Protein 8.8 gm/dL (6.0-8.3) H 05/30/18 16:00 Albumin 2.5 gm/dL (4.2-5.5) L 05/30/18 16:00 Globulin 6.3 gm/dL 05/30/18 16:00 Albumin/Globulin Ratio 0.4 (1.0-1.8) L 05/30/18 16:00 Triglycerides 216 mg/dL (<150) H 05/30/18 16:00 Cholesterol 125 mg/dL (<200) 05/30/18 16:00 LDL Cholesterol Direct 84 mg/dL (75-193) 05/30/18 16:00 HDL Cholesterol 18 mg/dL (23-92) L 05/30/18 16:00 TSH 0.55 uIU/ml (0.34-5.60) 05/30/18 16:00 Salicylates < 25.0 mg/L (30.0-100.0) L 05/30/18 16:00 Acetaminophen < 10.0 ug/mL (10.0-30.0) L 05/30/18 16:00 Ethyl Alcohol < 10 mg/dL (0-10) 05/30/18 16:00 RPR NONREACTIVE (NONREACTIVE) 05/30/18 16:00 - Physical Exam Vitals and I&O: Vital Signs Temp 97.2 F 06/07/18 20:00 Pulse 69 06/07/18 20:00 Resp 18 06/07/18 20:00 BP 144/85 06/07/18 22:23 Pulse Ox 96 06/07/18 20:00 Intake & Output 06/07/18 06/07/18 06/08/18 06:59 18:59 06:59 Intake Total 120 2200 120 Balance 120 2200 120 Intake: Oral 120 2200 120 Other: # Voids 2 5 1 # Bowel Movements 0 0 Active Medications: Current Medications Aspirin (Ecotrin) 81 mg PO DAILY [facility] Stop: 07/30/18 08:59 Last Admin: 06/07/18 12:17 Dose: 81 mg Bisacodyl (Dulcolax 10 Mg Supp) 10 mg RC DAILY PRN PRN Reason: IF NO BM IN THREE DAYS Stop: 07/29/18 22:05 Carbidopa/Levodopa (Sinemet 25mg-100 Mg) 1 tab PO BID [facility] Stop: 07/29/18 22:14 Last Admin: 06/07/18 17:11 Dose: 1 tab Dextrose (D50w) 50 ml IVP PRN PRN PRN Reason: Blood Glucose less than 70 Stop: 07/29/18 22:27 Dextrose (Glutose 40%) 18.75 gm PO PRN PRN PRN Reason: Blood Glucose less than 70 Stop: 07/29/18 22:27 Furosemide (Lasix) 40 mg PO Q48H [facility] Stop: 07/29/18 22:14 Last Admin: 06/07/18 22:23 Dose: 40 mg Glucagon (Glucagen) 1 mg IM PRN PRN PRN Reason: Blood Glucose less than 70 Stop: 07/29/18 22:27 Insulin Glargine (Lantus Insulin) 40 units SUBQ [facility] Stop: 07/29/18 22:59 Last Admin: 06/07/18 20:29 Dose: 40 units Insulin Human Lispro (Humalog Insulin Sliding Scale) 0 units SUBQ [facility]; Protocol Stop: 07/30/18 07:29 Last Admin: 06/07/18 20:29 Dose: 4 units Lactulose (Cephulac) 20 gm PO HS MICHAEL Stop: 07/30/18 20:59 Last Admin: 06/07/18 20:28 Dose: 20 gm Lisinopril (Zestril) 2.5 mg PO DAILY [facility] Stop: 07/30/18 08:59 Last Admin: 06/07/18 17:33 Dose: Not Given Lorazepam (Ativan) 0.5 mg PO Q4HR PRN; Protocol PRN Reason: Anxiety Stop: 06/29/18 23:09 Last Admin: 06/01/18 17:51 Dose: 0.5 mg Potassium Chloride (Klor-Con) 10 meq PO DAILY [facility] Stop: 07/31/18 08:59 Last Admin: 06/07/18 17:34 Dose: Not Given Risperidone (Risperdal) 1 mg PO BID [facility]; Protocol Stop: 08/06/18 08:59 Last Admin: 06/07/18 17:11 Dose: 1 mg Sodium Bicarbonate (Sodium Bicarbonate) 650 mg PO BID MICHAEL; Protocol Stop: 07/29/18 22:14 Last Admin: 06/07/18 17:11 Dose: 650 mg Zolpidem Tartrate (Ambien) 5 mg PO HS PRN PRN Reason: Insomnia Stop: 07/29/18 23:09 Last Admin: 06/06/18 20:34 Dose: 5 mg General: No acute distress Cardiovascular: Regular rate Lungs: Clear to auscultation Abdomen: Soft, no Tender - Procedures Procedures: Procedures Procedure Code Date EXCISION OF L UP ARM SUBCU/FASCIA, OPEN APPROACH [id number] 07/01/17 OTHER GROUP THERAPY 94.44 04/06/14 Assessment/Plan - Assessment Assessment: parkinson's disease DM II with CKD III Systolic heart failure Non ischemic cardiomyopathy - Plan Plan: Medication reviewed Continue BASAL BOLUS insulin Blood sugar stable Monitor vitals Plan of care discussed with nursing staff Nutritional Asmnt/Malnutr-PDOC - Dietary Evaluation Malnutrition Findings (Please click <Entered> for more info): Nutritional Asmnt/Malnutrition Start: 06/01/18 13: 52 Text: Status: Complete Freq: Protocol: Document 06/01/18 13:52 ROBBY (Rec: 06/01/18 14:09 ROBBY [email or web address]) Nutritional Asmnt/Malnutrition Patient General Information Nutritional Screening High Risk Diagnosis psychosis Pertinent Medical Hx/Surgical Hx leukocytosis, DM, CKD, parkinson, dementia, non ischemci cardiomyopathy Subjective Information Pt seen sleeping in bed at time of visit. Glucose 275 at admission noted. Per EMR, PO intake 25-75%. Current Diet Order/ Nutrition Support NCS, cardiac, ASHVIN, pureed Pertinent Medications lasix, lantus, humalog, levaquin, kcl, sodium bicarbonate Pertinent Labs 05/31-06/01 POC 171-203 05/30 K 3.3, BUN 36, Cr 1.7, Glucose 275, POC 207, alb 2.5 Nutritional Hx/Data Height 1.83 m Height (Calculated Centimeters) 182.9 Current Weight (lbs) 80.739 kg Weight (Calculated Kilograms) 80.7 Weight (Calculated Grams) 37396.4 [place] Body Weight 178 Body Mass Index (BMI) 24.1 Weight Status Approriate GI Symptoms GI Symptoms None Last BM / Difficult in: None Skin Integrity/Comment: intact Current %PO Good (75-100%) Estimated Nutritional Goals BEE in Kcals: Using Current wt Calories/Kcals/Kg 25-30 Kcals Calculated 4575-0885 Protein: Using Current wt Protein g/k.7-0.8 Protein Calculated 57-65 Fluid: ml 2024-243ml (1ml/kcal) Nutritional Problem 1. Problem Problem altered nutrition related labs Etiology hyperglycemia, renal dysfunction Signs/Symptoms: K 3.3, BUN 36, Cr 1.7, Glucose 275, POC 171-207 Malnutrition Alert Is there a minimum of two criteria No selected? Query Text:Check all the applicable criteria. A minimum of two criteria are recommended for diagnosis of either severe or non-severe malnutrition. Malnutrition Related to Morbid Obesity Malnutrition related to morbid obesity No Intervention/Recommendation Comments 1. Continue with NCS, cardiac, ASHVIN diet as ordered. Limit protein to 60g d/t CKD and elevated BUN/Cr. will attempt to provide nutrition education when pt available. 2. Monitor PO intake, wt, labs and skin integrity 3. F/U as moderate risk in 3-5 days. Expected Outcomes/Goals Expected Outcomes/Goals 1. PO intake to meet at least 75% of nutritional needs. 2. Wt stability, skin to remain intact, labs to approach WNL.
--- NOTE | 2018-06-08 04:56 | Progress Notes ---
DATE: 06/07/2018 SUBJECTIVE: Chart reviewed and the patient interviewed. Also, discussed the patient's condition with the staff and reviewed records and labs. The patient continued to be suspicious and he is still paranoid. The patient also is guarded. Also, is disheveled and personal hygiene is still poor and the patient tends to stay by himself in his room most of the time. He also is still guarded. Otherwise, the patient is compliant with taking his medications with no side effects of medications. ASSESSMENT: The patient is still psychotic and needs close monitoring. TREATMENT PLAN: Continue to monitor his behavior and his condition closely. Also, we will increase Risperdal to 1 mg twice a day and continue to follow his behavior closely. [facility]# [id number]
[2018-06-08] MEDS: INSULIN LISPRO SLIDING SCALE 100 UNITS/ML UNIT SUBQ SCH ×4 (06:34→21:13)
[2018-06-08] MEDS: Potassium Chloride 10 mEq ER Tab PO SCH (08:36)
[2018-06-08 11:05] LABS: ANION GAP 16.5 (7.0-16.0); CALCIUM SERUM 9.7 mg/dL (8.6-10.3); CREATININE - SERUM 2.2 mg/dL (0.7-1.3); GFR AFRICAN-AMERICAN 38.4 ml/min (>90); GFR NON AFRICAN-AMERICAN 31.7 ml/min; POTASSIUM SERUM 3.5 mEq/L (3.5-5.1)
[2018-06-08 11:06] LABS: ALB/GLOB RATIO 0.3 (1.0-1.8); ALBUMIN 2.1 gm/dL (4.2-5.5); BILIRUBIN,TOTAL 0.7 mg/dL (0.3-1.0); TOTAL PROTEIN,SERUM 8.6 gm/dL (6.0-8.3)
[2018-06-08] MEDS: Lactulose 10 Gm/15 mL 30mL UDC PO SCH (21:02)
[2018-06-08] MEDS: Insulin Glargine 100 units/ml 10ml Vial SUBQ SCH (21:14)
--- NOTE | 2018-06-08 21:52 | Progress Notes ---
DATE: 06/08/2018 PSYCHIATRIC PROGRESS NOTE SUBJECTIVE: Chart reviewed and the patient interviewed. Also discussed the patient's condition with the staff and reviewed records and labs. The patient is still guarded and still has episodes of yelling and screaming. The patient also is still restless and he still has severe mood swings. Also easily agitated. The patient also is still having episodes of yelling and screaming for no reason. On the other hand, the patient is compliant with taking his medications with no side effects of medications. ASSESSMENT: The patient is still psychotic and is still agitated. TREATMENT PLAN: Continue to monitor his behavior and his condition closely. Also, continue Risperdal that was increased yesterday to 1 mg twice a day and continue to follow up. [facility]# [id number]
[2018-06-09] MEDS: INSULIN LISPRO SLIDING SCALE 100 UNITS/ML UNIT SUBQ SCH ×4 (06:53→21:01)
[2018-06-09] MEDS: Potassium Chloride 10 mEq ER Tab PO SCH (09:44)
[2018-06-09] MEDS: Lactulose 10 Gm/15 mL 30mL UDC PO SCH (21:01)
[2018-06-09] MEDS: Insulin Glargine 100 units/ml 10ml Vial SUBQ SCH (21:02)
--- NOTE | 2018-06-09 21:43 | General Progress Note ---
Subjective - Review of Systems Service Date: 06/09/18 Subjective: Patient seen and examined no new concern noted Objective - Results Result Diagrams: 06/07/18 14:10 06/07/18 14:10 Recent Labs: Laboratory Last Values WBC 7.3 Th/cmm (4.8-10.8) 06/07/18 14:10 RBC 3.66 Mil/cmm (3.80-5.80) L 06/07/18 14:10 Hgb 11.9 gm/dL (12-16) L 06/07/18 14:10 Hct 34.9 % (41.0-60) L 06/07/18 14:10 MCV 95.3 fl (80-99) 06/07/18 14:10 MCH 32.6 pg (27.0-31.0) H 06/07/18 14:10 MCHC Differential 34.2 pg (28.0-36.0) 06/07/18 14:10 RDW 13.4 % (11.5-20.0) 06/07/18 14:10 Plt Count 164 Th/cmm (150-400) 06/07/18 14:10 MPV 8.9 fl 06/07/18 14:10 Neutrophils % 44.5 % (40.0-80.0) 06/07/18 14:10 Lymphocytes % 39.0 % (20.0-50.0) 06/07/18 14:10 Monocytes % 13.1 % (2.0-10.0) H 06/07/18 14:10 Eosinophils % 2.2 % (0.0-5.0) 06/07/18 14:10 Basophils % 1.2 % (0.0-2.0) 06/07/18 14:10 Sodium 140 mEq/L (136-145) 06/07/18 14:10 Potassium 3.5 mEq/L (3.5-5.1) 06/07/18 14:10 Chloride 103 mEq/L (98-107) 06/07/18 14:10 Carbon Dioxide 24.0 mEq/L (21.0-31.0) 06/07/18 14:10 Anion Gap 16.5 (7.0-16.0) H 06/07/18 14:10 BUN 48 mg/dL (7-25) H 06/07/18 14:10 Creatinine 2.2 mg/dL (0.7-1.3) H 06/07/18 14:10 Est GFR ( Amer) 38.4 ml/min (>90) 06/07/18 14:10 Est GFR (Non-Af Amer) 31.7 ml/min 06/07/18 14:10 BUN/Creatinine Ratio 21.8 06/07/18 14:10 Glucose 281 mg/dL (70-105) H 06/07/18 14:10 POC Glucose 167 MG/DL (70 - 105) H 06/04/18 06:14 Calcium 9.7 mg/dL (8.6-10.3) 06/07/18 14:10 Total Bilirubin 0.7 mg/dL (0.3-1.0) 06/07/18 14:10 AST 70 U/L (13-39) H 06/07/18 14:10 ALT 28 U/L (7-52) 06/07/18 14:10 Alkaline Phosphatase 104 U/L (34-104) 06/07/18 14:10 Troponin I 0.06 ng/mL (0.01-0.05) H D 05/30/18 16:00 Total Protein 8.6 gm/dL (6.0-8.3) H 06/07/18 14:10 Albumin 2.1 gm/dL (4.2-5.5) L 06/07/18 14:10 Globulin 6.5 gm/dL 06/07/18 14:10 Albumin/Globulin Ratio 0.3 (1.0-1.8) L 06/07/18 14:10 Triglycerides 216 mg/dL (<150) H 05/30/18 16:00 Cholesterol 125 mg/dL (<200) 05/30/18 16:00 LDL Cholesterol Direct 84 mg/dL (75-193) 05/30/18 16:00 HDL Cholesterol 18 mg/dL (23-92) L 05/30/18 16:00 TSH 0.55 uIU/ml (0.34-5.60) 05/30/18 16:00 Salicylates < 25.0 mg/L (30.0-100.0) L 05/30/18 16:00 Acetaminophen < 10.0 ug/mL (10.0-30.0) L 05/30/18 16:00 Ethyl Alcohol < 10 mg/dL (0-10) 05/30/18 16:00 RPR NONREACTIVE (NONREACTIVE) 05/30/18 16:00 - Physical Exam Vitals and I&O: Vital Signs Temp 98.0 F 06/09/18 20:31 Pulse 82 06/09/18 20:31 Resp 17 06/09/18 20:31 BP 100/64 06/09/18 20:31 Pulse Ox 98 06/09/18 20:31 Intake & Output 06/09/18 06/09/18 06/10/18 06:59 18:59 06:59 Intake Total 120 960 240 Balance 120 960 240 Intake: Oral 120 960 240 Other: # Voids 3 3 2 # Bowel Movements 1 Active Medications: Current Medications Aspirin (Ecotrin) 81 mg PO DAILY [facility] Stop: 07/30/18 08:59 Last Admin: 06/09/18 09:44 Dose: 81 mg Bisacodyl (Dulcolax 10 Mg Supp) 10 mg RC DAILY PRN PRN Reason: IF NO BM IN THREE DAYS Stop: 07/29/18 22:05 Carbidopa/Levodopa (Sinemet 25mg-100 Mg) 1 tab PO BID [facility] Stop: 07/29/18 22:14 Last Admin: 06/09/18 17:50 Dose: 1 tab Dextrose (D50w) 50 ml IVP PRN PRN PRN Reason: Blood Glucose less than 70 Stop: 07/29/18 22:27 Dextrose (Glutose 40%) 18.75 gm PO PRN PRN PRN Reason: Blood Glucose less than 70 Stop: 07/29/18 22:27 Furosemide (Lasix) 40 mg PO Q48H [facility] Stop: 07/29/18 22:14 Last Admin: 06/07/18 22:23 Dose: 40 mg Glucagon (Glucagen) 1 mg IM PRN PRN PRN Reason: Blood Glucose less than 70 Stop: 07/29/18 22:27 Insulin Glargine (Lantus Insulin) 40 units SUBQ [facility] Stop: 07/29/18 22:59 Last Admin: 06/09/18 21:02 Dose: 40 units Insulin Human Lispro (Humalog Insulin Sliding Scale) 0 units SUBQ [facility]; Protocol Stop: 07/30/18 07:29 Last Admin: 06/09/18 21:01 Dose: 4 units Lactulose (Cephulac) 20 gm PO HS [facility] Stop: 07/30/18 20:59 Last Admin: 06/09/18 21:01 Dose: 20 gm Lisinopril (Zestril) 2.5 mg PO DAILY [facility] Stop: 07/30/18 08:59 Last Admin: 06/09/18 08:51 Dose: Not Given Lorazepam (Ativan) 0.5 mg PO Q4HR PRN; Protocol PRN Reason: Anxiety Stop: 06/29/18 23:09 Last Admin: 06/01/18 17:51 Dose: 0.5 mg Potassium Chloride (Klor-Con) 10 meq PO DAILY [facility] Stop: 07/31/18 08:59 Last Admin: 06/09/18 09:44 Dose: 10 meq Risperidone (Risperdal) 1 mg PO BID [facility]; Protocol Stop: 08/06/18 08:59 Last Admin: 06/09/18 17:50 Dose: 1 mg Sodium Bicarbonate (Sodium Bicarbonate) 650 mg PO BID [facility]; Protocol Stop: 07/29/18 22:14 Last Admin: 06/09/18 17:50 Dose: 650 mg Zolpidem Tartrate (Ambien) 5 mg PO HS PRN PRN Reason: Insomnia Stop: 07/29/18 23:09 Last Admin: 06/06/18 20:34 Dose: 5 mg General: No acute distress Cardiovascular: Regular rate Lungs: Clear to auscultation Abdomen: Soft, no Tender - Procedures Procedures: Procedures Procedure Code Date EXCISION OF L UP ARM SUBCU/FASCIA, OPEN APPROACH [id number] 07/01/17 OTHER GROUP THERAPY 94.44 04/06/14 Assessment/Plan - Assessment Assessment: parkinson's disease DM II with CKD III Systolic heart failure Non ischemic cardiomyopathy - Plan Plan: Medication reviewed Continue BASAL BOLUS insulin Blood sugar stable Monitor vitals Plan of care discussed with nursing staff Nutritional Asmnt/Malnutr-PDOC - Dietary Evaluation Malnutrition Findings (Please click <Entered> for more info): Nutritional Asmnt/Malnutrition Start: 06/01/18 13: 52 Text: Status: Complete Freq: Protocol: Document 06/01/18 13:52 ROBBY (Rec: 06/01/18 14:09 ROBBY [email or web address]) Nutritional Asmnt/Malnutrition Patient General Information Nutritional Screening High Risk Diagnosis psychosis Pertinent Medical Hx/Surgical Hx leukocytosis, DM, CKD, parkinson, dementia, non ischemci cardiomyopathy Subjective Information Pt seen sleeping in bed at time of visit. Glucose 275 at admission noted. Per EMR, PO intake 25-75%. Current Diet Order/ Nutrition Support NCS, cardiac, ASHVIN, pureed Pertinent Medications lasix, lantus, humalog, levaquin, kcl, sodium bicarbonate Pertinent Labs 05/31-06/01 POC 171-203 05/30 K 3.3, BUN 36, Cr 1.7, Glucose 275, POC 207, alb 2.5 Nutritional Hx/Data Height 1.83 m Height (Calculated Centimeters) 182.9 Current Weight (lbs) 80.739 kg Weight (Calculated Kilograms) 80.7 Weight (Calculated Grams) 10010.4 [place] Body Weight 178 Body Mass Index (BMI) 24.1 Weight Status Approriate GI Symptoms GI Symptoms None Last BM / Difficult in: None Skin Integrity/Comment: intact Current %PO Good (75-100%) Estimated Nutritional Goals BEE in Kcals: Using Current wt Calories/Kcals/Kg 25-30 Kcals Calculated 7763-4233 Protein: Using Current wt Protein g/k.7-0.8 Protein Calculated 57-65 Fluid: ml 2024-243ml (1ml/kcal) Nutritional Problem 1. Problem Problem altered nutrition related labs Etiology hyperglycemia, renal dysfunction Signs/Symptoms: K 3.3, BUN 36, Cr 1.7, Glucose 275, POC 171-207 Malnutrition Alert Is there a minimum of two criteria No selected? Query Text:Check all the applicable criteria. A minimum of two criteria are recommended for diagnosis of either severe or non-severe malnutrition. Malnutrition Related to Morbid Obesity Malnutrition related to morbid obesity No Intervention/Recommendation Comments 1. Continue with NCS, cardiac, ASHVIN diet as ordered. Limit protein to 60g d/t CKD and elevated BUN/Cr. will attempt to provide nutrition education when pt available. 2. Monitor PO intake, wt, labs and skin integrity 3. F/U as moderate risk in 3-5 days. Expected Outcomes/Goals Expected Outcomes/Goals 1. PO intake to meet at least 75% of nutritional needs. 2. Wt stability, skin to remain intact, labs to approach WNL.
[2018-06-10] MEDS: INSULIN LISPRO SLIDING SCALE 100 UNITS/ML UNIT SUBQ SCH ×4 (06:44→20:51)
[2018-06-10] MEDS: Potassium Chloride 10 mEq ER Tab PO SCH (08:58)
--- NOTE | 2018-06-10 13:21 | Progress Notes ---
DATE: 06/09/2018 SUBJECTIVE: Chart reviewed and the patient interviewed. Also, discussed the patient's condition with the staff and reviewed records and labs. The patient continued to be agitated and he is still using foul language and sexually inappropriate. The patient also is still loud while talking with the staff. The patient also is restless and he is still in irritable mood. Otherwise, the patient is taking his medications with no side effects of medications. ASSESSMENT: The patient is still agitated and aggressive and needs close monitoring. TREATMENT PLAN: Continue to monitor his behavior and his condition closely. Also, continue to adjust psychotropic medications and work on behavioral modification. JOB# [id number]
[2018-06-10] MEDS: Lactulose 10 Gm/15 mL 30mL UDC PO SCH (20:25)
[2018-06-10] MEDS: Insulin Glargine 100 units/ml 10ml Vial SUBQ SCH (20:52)
[2018-06-11] MEDS: INSULIN LISPRO SLIDING SCALE 100 UNITS/ML UNIT SUBQ SCH ×4 (06:39→20:43)
[2018-06-11] MEDS: Potassium Chloride 10 mEq ER Tab PO SCH (08:38)
--- NOTE | 2018-06-11 12:47 | Progress Notes ---
DATE: 06/10/2018 SUBJECTIVE: The patient was seen and evaluated. The patient's chart reviewed. This is Dr. Patel doing initial psychiatric evaluation, covering for Dr. Drew. Overnight nursing staff reported the patient oriented only to time, person, irritable, suspicious. Today on [id number] evaluation, perseverates on the only quote he states throughout the interview "shut up, shut up, shut up." MENTAL STATUS EXAMINATION: Disorganized, disengaged, ruminative, perseverative, and easily agitated with ADLs. ASSESSMENT AND PLAN: Due to the patient's ongoing foul language hypersexual and inappropriate behavior, aggressive, agitated unable to formulate medication reconciliation review. We will continue with the current medications, which include Risperdal 1 mg p.o. b.i.d. JOB# [id number]
[2018-06-11] MEDS: Lactulose 10 Gm/15 mL 30mL UDC PO SCH (20:38)
[2018-06-11] MEDS: Insulin Glargine 100 units/ml 10ml Vial SUBQ SCH (20:43)
--- NOTE | 2018-06-12 00:16 | Progress Notes ---
DATE: 06/11/2018 SUBJECTIVE: The patient was seen and evaluated. The patient's chart reviewed. The patient on evaluation continues with foul language, actually inappropriately and perseverates "shut up." MENTAL STATUS EXAMINATION: Verbally aggressive and agitated. ASSESSMENT AND PLAN: Due to the patient's ongoing aggressive verbally in behavior, unable to formulate a safe plan outside the structured environment. We will continue with the current medication regimen, risperidone to target the patient's ongoing impulsive and aggressive behavior and disorganized state. [facility]# [id number]
[2018-06-12] MEDS: INSULIN LISPRO SLIDING SCALE 100 UNITS/ML UNIT SUBQ SCH ×4 (06:39→21:30)
[2018-06-12] MEDS: Potassium Chloride 10 mEq ER Tab PO SCH (09:54)
[2018-06-12] MEDS: Lactulose 10 Gm/15 mL 30mL UDC PO SCH (21:28)
[2018-06-12] MEDS: Insulin Glargine 100 units/ml 10ml Vial SUBQ SCH (21:29)
--- NOTE | 2018-06-12 21:44 | General Progress Note ---
Subjective - Review of Systems Service Date: 06/12/18 Subjective: Patient seen and examined doing fine no new concern reported Objective - Results Result Diagrams: 06/07/18 14:10 06/07/18 14:10 Recent Labs: Laboratory Last Values WBC 7.3 Th/cmm (4.8-10.8) 06/07/18 14:10 RBC 3.66 Mil/cmm (3.80-5.80) L 06/07/18 14:10 Hgb 11.9 gm/dL (12-16) L 06/07/18 14:10 Hct 34.9 % (41.0-60) L 06/07/18 14:10 MCV 95.3 fl (80-99) 06/07/18 14:10 MCH 32.6 pg (27.0-31.0) H 06/07/18 14:10 MCHC Differential 34.2 pg (28.0-36.0) 06/07/18 14:10 RDW 13.4 % (11.5-20.0) 06/07/18 14:10 Plt Count 164 Th/cmm (150-400) 06/07/18 14:10 MPV 8.9 fl 06/07/18 14:10 Neutrophils % 44.5 % (40.0-80.0) 06/07/18 14:10 Lymphocytes % 39.0 % (20.0-50.0) 06/07/18 14:10 Monocytes % 13.1 % (2.0-10.0) H 06/07/18 14:10 Eosinophils % 2.2 % (0.0-5.0) 06/07/18 14:10 Basophils % 1.2 % (0.0-2.0) 06/07/18 14:10 Sodium 140 mEq/L (136-145) 06/07/18 14:10 Potassium 3.5 mEq/L (3.5-5.1) 06/07/18 14:10 Chloride 103 mEq/L (98-107) 06/07/18 14:10 Carbon Dioxide 24.0 mEq/L (21.0-31.0) 06/07/18 14:10 Anion Gap 16.5 (7.0-16.0) H 06/07/18 14:10 BUN 48 mg/dL (7-25) H 06/07/18 14:10 Creatinine 2.2 mg/dL (0.7-1.3) H 06/07/18 14:10 Est GFR ( Amer) 38.4 ml/min (>90) 06/07/18 14:10 Est GFR (Non-Af Amer) 31.7 ml/min 06/07/18 14:10 BUN/Creatinine Ratio 21.8 06/07/18 14:10 Glucose 281 mg/dL (70-105) H 06/07/18 14:10 POC Glucose 167 MG/DL (70 - 105) H 06/04/18 06:14 Calcium 9.7 mg/dL (8.6-10.3) 06/07/18 14:10 Total Bilirubin 0.7 mg/dL (0.3-1.0) 06/07/18 14:10 AST 70 U/L (13-39) H 06/07/18 14:10 ALT 28 U/L (7-52) 06/07/18 14:10 Alkaline Phosphatase 104 U/L (34-104) 06/07/18 14:10 Troponin I 0.06 ng/mL (0.01-0.05) H D 05/30/18 16:00 Total Protein 8.6 gm/dL (6.0-8.3) H 06/07/18 14:10 Albumin 2.1 gm/dL (4.2-5.5) L 06/07/18 14:10 Globulin 6.5 gm/dL 06/07/18 14:10 Albumin/Globulin Ratio 0.3 (1.0-1.8) L 06/07/18 14:10 Triglycerides 216 mg/dL (<150) H 05/30/18 16:00 Cholesterol 125 mg/dL (<200) 05/30/18 16:00 LDL Cholesterol Direct 84 mg/dL (75-193) 05/30/18 16:00 HDL Cholesterol 18 mg/dL (23-92) L 05/30/18 16:00 TSH 0.55 uIU/ml (0.34-5.60) 05/30/18 16:00 Salicylates < 25.0 mg/L (30.0-100.0) L 05/30/18 16:00 Acetaminophen < 10.0 ug/mL (10.0-30.0) L 05/30/18 16:00 Ethyl Alcohol < 10 mg/dL (0-10) 05/30/18 16:00 RPR NONREACTIVE (NONREACTIVE) 05/30/18 16:00 - Physical Exam Vitals and I&O: Vital Signs Temp 98.0 F 06/12/18 20:26 Pulse 81 06/12/18 20:26 Resp 18 06/12/18 20:26 BP 101/67 06/12/18 20:26 Pulse Ox 96 06/12/18 20:26 Intake & Output 06/12/18 06/12/18 06/13/18 06:59 18:59 06:59 Intake Total 180 120 Output Total 1 Balance 179 120 Intake: Oral 180 120 Output: Urine/Stool Mix 1 Other: # Voids 2 2 # Bowel Movements 0 1 Active Medications: Current Medications Aspirin (Ecotrin) 81 mg PO DAILY [facility], [facility]1983 Stop: 07/30/18 08:59 Last Admin: 06/12/18 09:54 Dose: 81 mg Bisacodyl (Dulcolax 10 Mg Supp) 10 mg RC DAILY PRN PRN Reason: IF NO BM IN THREE DAYS Stop: 07/29/18 22:05 Carbidopa/Levodopa (Sinemet 25mg-100 Mg) 1 tab PO BID [facility], 1928[facility]1983 Stop: 07/29/18 22:14 Last Admin: 06/12/18 16:11 Dose: 1 tab Dextrose (D50w) 50 ml IVP PRN PRN PRN Reason: Blood Glucose less than 70 Stop: 07/29/18 22:27 Dextrose (Glutose 40%) 18.75 gm PO PRN PRN PRN Reason: Blood Glucose less than 70 Stop: 07/29/18 22:27 Furosemide (Lasix) 40 mg PO Q48H [facility], 1928–1983 Stop: 07/29/18 22:14 Last Admin: 06/11/18 22:45 Dose: 40 mg Glucagon (Glucagen) 1 mg IM PRN PRN PRN Reason: Blood Glucose less than 70 Stop: 07/29/18 22:27 Insulin Glargine (Lantus Insulin) 40 units SUBQ [facility] Stop: 07/29/18 22:59 Last Admin: 06/12/18 21:29 Dose: 40 units Insulin Human Lispro (Humalog Insulin Sliding Scale) 0 units SUBQ ACHS MICHAEL; Protocol Stop: 07/30/18 07:29 Last Admin: 06/12/18 21:30 Dose: 2 units Lactulose (Cephulac) 20 gm PO HS MICHAEL Stop: 07/30/18 20:59 Last Admin: 06/12/18 21:28 Dose: 20 gm Lisinopril (Zestril) 2.5 mg PO DAILY MICHAEL Stop: 07/30/18 08:59 Last Admin: 06/12/18 09:54 Dose: Not Given Lorazepam (Ativan) 0.5 mg PO Q4HR PRN; Protocol PRN Reason: Anxiety Stop: 06/29/18 23:09 Last Admin: 06/01/18 17:51 Dose: 0.5 mg Potassium Chloride (Klor-Con) 10 meq PO DAILY MICHAEL Stop: 07/31/18 08:59 Last Admin: 06/12/18 09:54 Dose: 10 meq Risperidone (Risperdal) 1 mg PO BID MICHAEL; Protocol Stop: 08/06/18 08:59 Last Admin: 06/12/18 16:11 Dose: 1 mg Sodium Bicarbonate (Sodium Bicarbonate) 650 mg PO BID MICHAEL; Protocol Stop: 07/29/18 22:14 Last Admin: 06/12/18 16:11 Dose: 650 mg Zolpidem Tartrate (Ambien) 5 mg PO HS PRN PRN Reason: Insomnia Stop: 07/29/18 23:09 Last Admin: 06/09/18 21:56 Dose: 5 mg General: No acute distress Cardiovascular: Regular rate Lungs: Clear to auscultation Abdomen: Soft, no Tender - Procedures Procedures: Procedures Procedure Code Date EXCISION OF L UP ARM SUBCU/FASCIA, OPEN APPROACH 1MIN0LK 07/01/17 OTHER GROUP THERAPY 94.44 04/06/14 Assessment/Plan - Assessment Assessment: parkinson's disease DM II with CKD III Systolic heart failure Non ischemic cardiomyopathy - Plan Plan: Medication reviewed Continue BASAL BOLUS insulin Blood sugar stable Monitor vitals Plan of care discussed with nursing staff Nutritional Asmnt/Malnutr-PDOC - Dietary Evaluation Malnutrition Findings (Please click <Entered> for more info): Nutritional Asmnt/Malnutrition Start: 06/01/18 13: 52 Text: Status: Complete Freq: Protocol: Document 06/01/18 13:52 ROBBY (Rec: 06/01/18 14:09 ROBBY MILLIE-FN) Nutritional Asmnt/Malnutrition Patient General Information Nutritional Screening High Risk Diagnosis psychosis Pertinent Medical Hx/Surgical Hx leukocytosis, DM, CKD, parkinson, dementia, non ischemci cardiomyopathy Subjective Information Pt seen sleeping in bed at time of visit. Glucose 275 at admission noted. Per EMR, PO intake 25-75%. Current Diet Order/ Nutrition Support NCS, cardiac, ASHVIN, pureed Pertinent Medications lasix, lantus, humalog, levaquin, kcl, sodium bicarbonate Pertinent Labs 05/31-06/01 POC 171-203 4 K 3.3, BUN 36, Cr 1.7, Glucose 275, POC 207, alb 2.5 Nutritional Hx/Data Height 1.83 m Height (Calculated Centimeters) 182.9 Current Weight (lbs) 80.739 kg Weight (Calculated Kilograms) 80.7 Weight (Calculated Grams) 00180.4 Felt Body Weight 178 Body Mass Index (BMI) 24.1 Weight Status Approriate GI Symptoms GI Symptoms None Last BM 05/31 Difficult in: None Skin Integrity/Comment: intact Current %PO Good (75-100%) Estimated Nutritional Goals BEE in Kcals: Using Current wt Calories/Kcals/Kg 25-30 Kcals Calculated 6049-4173 Protein: Using Current wt Protein g/k.7-0.8 Protein Calculated 57-65 Fluid: ml 2024-2430ml (1ml/kcal) Nutritional Problem 1. Problem Problem altered nutrition related labs Etiology hyperglycemia, renal dysfunction Signs/Symptoms: K 3.3, BUN 36, Cr 1.7, Glucose 275, POC 171-207 Malnutrition Alert Is there a minimum of two criteria No selected? Query Text:Check all the applicable criteria. A minimum of two criteria are recommended for diagnosis of either severe or non-severe malnutrition. Malnutrition Related to Morbid Obesity Malnutrition related to morbid obesity No Intervention/Recommendation Comments 1. Continue with NCS, cardiac, ASHVIN diet as ordered. Limit protein to 60g d/t CKD and elevated BUN/Cr. will attempt to provide nutrition education when pt available. 2. Monitor PO intake, wt, labs and skin integrity 3. F/U as moderate risk in 3-5 days. Expected Outcomes/Goals Expected Outcomes/Goals 1. PO intake to meet at least 75% of nutritional needs. 2. Wt stability, skin to remain intact, labs to approach WNL.
[2018-06-13] MEDS: INSULIN LISPRO SLIDING SCALE 100 UNITS/ML UNIT SUBQ SCH (06:33)
--- NOTE | 2018-06-13 07:49 | Discharge Summary ---
DATE OF DISCHARGE: 06/13/2018 DATE OF DISCHARGE: 06/13. PATIENT'S AGE: 67. SEX: Male. PHYSICIAN: Dr. Drew. FINAL DIAGNOSIS/PRIMARY DIAGNOSIS: Bipolar disorder, depressed episode, with psychotic features. MEDICAL DIAGNOSES: 1. Diabetes mellitus. 2. Chronic kidney disease. 3. Parkinson's disease. REASON FOR HOSPITALIZATION: The patient was admitted to the hospital from [facility] because of increased agitation and irritability and also the patient was having disorganized thoughts. HOSPITAL COURSE: The patient continued to be agitated and in irritable mood. The patient also was confused. The patient was started on Risperdal and the dose adjusted to 1 mg twice a day. Gradually, the patient's affect was brighter. The patient was less agitated and less irritable. The patient had no major behavioral issues and the patient was discharged back to [place]. Physical exam of the patient showed no major medical problems and the patient had no major medical issues while in the hospital. AFTER DISCHARGE PLANS: The patient discharged from the hospital and returning back to [facility] with plans to follow him there. EXPECTED OUTCOME AFTER DISCHARGE: Fair if the patient continued to take his psychotropic medications and follow up with discharge plans. [facility]# [id number]
[2018-06-13] MEDS: Potassium Chloride 10 mEq ER Tab PO SCH (09:14)
--- NOTE | 2018-06-13 10:10 | Progress Notes ---
DATE: 06/12/2018 SUBJECTIVE: Chart reviewed and the patient interviewed. Also discussed the patient's condition with the staff and reviewed records and labs. The patient is slightly calmer, but he is still having episodes of Dictation end here JOB# [id number]
--- NOTE | 2018-06-13 10:14 | Progress Notes ---
DATE: 06/12/2018 SUBJECTIVE: Chart reviewed and the patient interviewed. Also discussed the patient's condition with the staff and reviewed. [facility]# [id number]
--- NOTE | 2018-06-13 10:17 | Progress Notes ---
DATE: 06/12/2018 SUBJECTIVE: Chart reviewed and the patient interviewed. Also discussed the patient's condition with the staff and reviewed records and labs. The patient still has severe mood swings and at times, the patient seems to be calm and sleepy and other times, he is yelling and screaming and impulsive and paranoid. The patient also still needs lots of redirections. He also is still easily agitated and easily irritable. Otherwise, the patient is compliant with taking his medications with no side effects of medications. ASSESSMENT: The patient is still agitated and psychotic. TREATMENT PLAN: Continue to monitor his behavior and his condition closely. Also, continue adjusting medications and work on behavioral modification and followup. [facility]# [id number]
== END 2018-06-13 12:00 | DRG 885 ==
LOC: ER 15:17 → GERO 17:15
PROVIDERS: ADMIT Psychiatry & Neurology Psychiatry; ATTEND Psychiatry & Neurology Psychiatry
DX: F31.5 Bipolar disorder, current episode depressed, severe, with psychotic features (principal); E43 Unspecified severe protein-calorie malnutrition; N18.3 Chronic kidney disease, stage 3 (moderate); E11.00 Type 2 diabetes mellitus with hyperosmolarity without nonketotic hyperglycemic-hyperosmolar coma (NKHHC); I42.9 Cardiomyopathy, unspecified; I13.0 Hypertensive heart and chronic kidney disease with heart failure and stage 1 through stage 4 chronic kidney disease, or unspecified chronic kidney disease; F02.81 Dementia in other diseases classified elsewhere, unspecified severity, with behavioral disturbance; I50.20 Unspecified systolic (congestive) heart failure; F29 Unspecified psychosis not due to a substance or known physiological condition; E11.22 Type 2 diabetes mellitus with diabetic chronic kidney disease; I25.10 Atherosclerotic heart disease of native coronary artery without angina pectoris; E78.5 Hyperlipidemia, unspecified; G20 Parkinson's disease; D72.829 Elevated white blood cell count, unspecified; Z95.0 Presence of cardiac pacemaker; Z68.24 Body mass index [BMI] 24.0-24.9, adult
CPT/HCPCS: 36415-UA; 76770-TC; 80053-TC; 80061-TC; 80320-TC; 80329-TC; 82948-90; 83036-90; 84443-TC; 84484-TC; 85025-TC; 86592-TC; 93005; J1815; Z7610